=== PATIENT | male | born 1955 | race Caucasian/White ===

== ENCOUNTER 2016-11-28 15:13 | Inpatient (IN) | payer MEDICAID ==
[~2016-11-28] VITALS: Ht 177.8 cm; Wt 79.3 kg
[~2016-11-28 15:13] MED LIST: ACET-915 PO; ASC500 PO; CRAN300T PO; DORZ10DR22 BOTH EYES; DULR PR; ESOM40CA PO; GLIM2TAB PO; INSU100C SC; LANT3I SC; LISI10TA2 PO; MAGN400O4 PO; MTF1000T PO; MULT-552 PO; SERT25TA PO; ZINC220T PO; [UNRECOGNIZED DRUG - CODE] IM
--- NOTE | 2016-11-28 15:27 | ERA ---
ER Documentation Chief Complaint Date/Time DATE: 11/28/16 TIME: 15:26 Chief Complaint BROUGHT IN VIA PRIVATE AMBULANCE DUE TO SUPRAPUBIC CATHETER HPI The patient is a 61-year-old male, presenting to the ER because of suprapubic Acosta catheter insertion site leakage and painful urination intermittently for the last 2 weeks. He is thick antibiotic for acute cystitis but no response. The Acosta catheter was inserted September. He denies fever, chills, neck pain, chest pain, dyspnea, abdominal pain, vomiting, diarrhea, constipation. He does not smoke does not drink Past medical history: Paraplegic, diabetes mellitus, GERD, depression, chronic kidney disease Past surgical history: Chronic suprapubic Acosta ROS All systems reviewed and are negative except as per history of present illness. Medications Home Meds Reported Medications Cranberry Extract (Cranberry Concentrate) Unknown Strength Capsule, 1680 MG PO DAILY, CAP 11/28/16 Magnesium Hydroxide* (Milk Of Magnesia*) 400 Mg/5 Ml Oral.susp, 30 ML PO QHS Y for CONSTIPATION, ML 11/28/16 Acetaminophen* (Tylenol*) 325 Mg Tablet, 650 MG PO Q4H Y for MILD PAIN LEVEL 1-4 /10, TAB 11/28/16 Hydrocodone/Acetaminophen ([place] 5-325 Tablet) 1 Each Tablet, 1 EACH PO Q4H WHILE AWAKE, TAB PAIN SCALE 5-7/10 AND QD PRIOR TO WOUND TX 11/28/16 Sod Phosphate/Sod Biphosphate* (Fleet* Enema Pediatric) 66.6 Ml Soln, 66.6 ML ID Q2DAYS Y for CONSTIPATION, ENEMA 11/28/16 Bisacodyl* (Bisacodyl*) 10 Mg Supp, 10 MG ID DAILY, SUPP 11/28/16 Baclofen* (Baclofen*) 20 Mg Tablet, 20 MG PO TID, TAB 11/28/16 Amlodipine Besylate* (Amlodipine Besylate*) 10 Mg Tablet, 10 MG PO DAILY, #30 TAB HOLD IF SBP<110 OR<60 11/28/16 Multivitamin with Minerals (Multivitamins with Minerals) 1 Each Tablet, 1 EACH PO DAILY, TAB 11/28/16 Metformin Hcl* (Metformin Hcl*) 1,000 Mg Tablet, 1000 MG PO WITH BREAKFAST DINNE , #60 TAB 11/28/16 Glimepiride* (Glimepiride*) 2 Mg Tablet, 2 MG PO WITH BREAKFAST DINNE, TAB 11/28/16 Insulin Lispro (Humalog) 100 Unit/1 Ml Cartridge, 0 SQ SLIDING SCALE 60-110=0 UNITS, 111-150=4 UNITS, 151-200=8 UNITS, 201-250=10 UNITS, 251-300=12 UNITS,301-350=14 UNITS,>350=16 UNITS IF BS<60 OR >350 CALL MD 11/28/16 Ferrous Sulfate* (Ferrous Sulfate*) 325 Mg Tabec, 325 MG PO DAILY, TAB 11/28/16 Zinc Sulfate* (Zinc Sulfate*) 220 Mg Tablet, 220 MG PO DAILY, TAB 11/28/16 Ascorbic Acid* (Vitamin C*) 500 Mg Capsule.sa, 500 MG PO DAILY, CAP 11/28/16 Amorita-3 Fatty Acids (Fish Oil) 500 Mg Capsule, 500 MG PO DAILY, CAP 11/28/16 Discontinued Reported Medications Cranberry Conc/Ascorbic Acid (CRANBERRY CONCENTRATE SOFTGEL) 1 Each Capsule, 1 EACH PO DAILY, CAP 11/28/16 Lisinopril* (Lisinopril*) 10 Mg Tablet, 10 MG PO DAILY, TAB 03/04/15 Bisacodyl* (Bisacodyl*) 10 Mg Supp, 10 MG ID DAILY Y for CONSTIPATION, SUPP 03/04/15 Cranberry Extract (Cranberry) 300 Mg Tablet, 1680 MG PO 03/04/15 Esomeprazole Mag Trihydrate (Nexium) 40 Mg Capsule.dr, 40 MG PO AC BREAKFAST, CAP 03/04/15 Insulin Lispro (Humalog) 100 U/Ml Cartridge, 0 SC SLIDING SCALE ACHS, EA 03/04/15 Multivitamins* (Once Daily*) 1 Tab Tablet, 1 TAB PO DAILY, TAB 03/04/15 Insulin Glargine* (Lantus*) 100 Unit/Ml Soln, 30 UNIT SC HS, EA 03/04/15 Magnesium Hydroxide* (Milk Of Magnesia*) 400 Mg/5 Ml Oral.susp, 30 ML PO HS Y for CONSTIPATION, ML 08/23/14 Cefazolin Sod* (Ancef*) 500 Mg Soln, 1000 MG IM 1ST OF THE MONTH, VIAL 08/23/14 Dorzolamide-Timolol* (Cosopt*) 2%-0.5% - 10 Ml Soln, 1 DROP BOTH EYES HS, BOTTLE 08/23/14 Zinc Sulfate* (Zinc Sulfate*) 220 Mg Tablet, 220 MG PO DAILY, TAB 08/23/14 Ascorbic Acid (Vitamin C) 500 Mg Tab, 500 MG PO DAILY, TAB 08/23/14 Glimepiride* (Glimepiride*) 2 Mg Tablet, 2 MG PO BID, TAB 08/23/14 Acetaminophen* (Tylenol*) 325 Mg Tab, 650 MG PO Q4 PRN 10/19/11 Sertraline Hcl* (Zoloft*) 25 Mg Tablet, 12.5 MG PO DAILY 10/19/11 Discontinued Scripts Metformin* (Glucophage*) 1,000 Mg Tablet, 1000 MG PO BID, #60 TAB Prov:ANN MARKS MD 08/24/14 Allergies Allergies: Coded Allergies: Penicillins (Verified Allergy, Severe, RASH, 11/28/16) sulfamethoxazole (Verified Allergy, Mild, 11/28/16) trimethoprim (Verified Allergy, Mild, 11/28/16) cephalexin (Verified Allergy, Unknown, 11/28/16) PMhx/Soc History of Surgery: Yes Anesthesia Reaction: No Hx Neurological Disorder: Yes (Quadraplegic) Hx Respiratory Disorders: No Hx Cardiac Disorders: No Hx Psychiatric Problems: No Hx Miscellaneous Medical Probl: Yes (ACOSTA CATHETER) Hx Alcohol Use: No Hx Substance Use: No Hx Tobacco Use: No Physical Exam Vitals Vital Signs Date Time Temp Pulse Resp B/P Pulse Ox O2 Delivery O2 Flow Rate FiO2 11/28/16 17:15 96.6 95 18 112/69 100 Room Air 11/28/16 15:23 98.5 100 18 90/60 97 Physical Exam Const: No acute distress. Head: Atraumatic. Eyes: Normal Conjunctiva. ENT: Normal External Ears, Nose and Mouth. Neck: Full range of motion. No meningismus. Resp: Clear to auscultation bilaterally. Cardio: Regular rate and rhythm, no murmurs. Abd: Soft, non distended, normal bowel sounds, non tender. Positive for suprapubic Acosta catheter Skin: No petechiae or rashes. Back: No midline or flank tenderness. Ext: No cyanosis, or edema. Neur: Awake and alert. Some movement of extremities Psych: Normal Mood and Affect. Result Diagram: 11/28/16 1615 11/28/16 1615 Results 24 hrs Laboratory Tests Test 11/28/16 15:59 11/28/16 16:15 Iron Level 34ug/dl Percent Iron Saturation 11% SAT Total Iron Binding Capacity 297ug/dl Alanine Aminotransferase (ALT/SGPT) 9IU/L Albumin 4.0g/dl Albumin/Globulin Ratio 0.86 Alkaline Phosphatase 132IU/L Anion Gap 22 Aspartate Amino Transf (AST/SGOT) 21IU/L Basophils # 0.110^3/ul Basophils % 1.0% Blood Morphology Comment Blood Urea Nitrogen 24mg/dl Calcium Level 9.5mg/dl Carbon Dioxide Level 26mmol/L Chloride Level 99mmol/L Creatinine 0.85mg/dl Direct Bilirubin 0.00mg/dl Eosinophils # 0.710^3/ul Eosinophils % 4.9% Globulin 4.60g/dl Glucose Level 100mg/dl Hematocrit 39.1% Hemoglobin 12.9g/dl Indirect Bilirubin 0.1mg/dl Lipase 95U/L Lymphocytes # 3.910^3/ul Lymphocytes % 28.8% Mean Corpuscular Hemoglobin 25.1pg Mean Corpuscular Hemoglobin Concent 33.1g/dl Mean Corpuscular Volume 76.0fl Mean Platelet Volume 6.6fl Monocytes # 1.110^3/ul Monocytes % 7.9% Neutrophils # 7.810^3/ul Neutrophils % 57.4% Nucleated Red Blood Cells # 0.010^3/ul Nucleated Red Blood Cells % 0.0/100WBC Platelet Count 64722^3/UL Potassium Level 4.3mmol/L Red Blood Count 5.1510^6/ul Red Cell Distribution Width 18.6% Sodium Level 143mmol/L Total Bilirubin 0.1mg/dl Total Protein 8.6g/dl Urine Bacteria MANY Urine Bilirubin NEGATIVE Urine Clarity SLIGHTLY CLOUDY Urine Color LT. YELLOW Urine Glucose 0.5%% Urine Hemoglobin 2+ Urine Ketones NEGATIVE Urine Leukocyte Esterase 2+ Urine Microscopic RBC 2-5/HPF Urine Microscopic WBC >50/HPF Urine Nitrite POSITIVE Urine Specific [place] 1.015 Urine Squamous Epithelial Cells FEW Urine Total Protein 1+ Urine Urobilinogen 0.2 E.U./dL Urine WBC Clumps FEW Urine pH 6.0 White Blood Count 13.610^3/ul Current Medications Medications (Trade) Dose Ordered Sig/Aric Route PRN Reason Start Time Stop Time Status Last Admin Dose Admin Sodium Chloride 250 ml @ 250 mls/hr Q1H ONCE IV 11/28/16 16:00 11/28/16 16:59 DC 11/28/16 16:23 Sodium Chloride 250 ml @ 250 mls/hr Q1H ONCE IV 11/28/16 17:00 11/28/16 17:59 DC 11/28/16 17:36 Ciprofloxacin/ Dextrose (Cipro Ivpb) 200 ml @ 200 mls/hr ONCE ONCE IVPB 11/28/16 17:00 11/28/16 17:59 DC 11/28/16 17:36 IV Flush (NS 3 ml) 3 ml PER PROTOCOL IV 11/28/16 18:30 Ondansetron HCl (Zofran Inj) 4 mg Q6H PRN IV NAUSEA AND/OR VOMITING 11/28/16 18:30 Acetaminophen (Tylenol Tab) 650 mg Q6H PRN PO PAIN LEVEL 1-3 OR FEVER 11/28/16 18:30 Acetaminophen/ Hydrocodone Bitart ([place] (5/325)) 1 tab Q6H PRN PO MODERATE PAIN LEVEL 4-6 11/28/16 18:30 Morphine Sulfate (morphine) 2 mg Q4H PRN IV SEVERE PAIN LEVEL 7-10 11/28/16 18:30 Docusate Sodium (Colace) 100 mg Q12H PRN PO CONSTIPATION 11/28/16 18:30 Famotidine (Pepcid Iv) 20 mg Q12 IV 11/28/16 21:00 Enoxaparin Sodium (Lovenox) 40 mg DAILY SC 11/29/16 09:00 Insulin Aspart (Novolog Insulin Pen) NOVOLOG *MILD* ALGORITHM WITH MEALS BEDTIME SC 11/28/16 21:00 Miscellaneous Information (* Miscellaneous Pharmacy Order) HYPOGLYCEMIA PROTOCOL w... ONCE ONCE XX 11/28/16 18:30 11/28/16 18:31 DC Miscellaneous Information (* Miscellaneous Pharmacy Order) Discontinue Glyburide, Glipizide,... ONCE ONCE XX 11/28/16 18:30 11/28/16 18:31 DC Miscellaneous Information (* Miscellaneous Pharmacy Order) Discontinue all previ... ONCE ONCE XX 11/28/16 18:30 11/28/16 18:31 DC Amlodipine Besylate (Norvasc) 10 mg DAILY PO 11/29/16 09:00 Ascorbic Acid (Vitamin C) 500 mg DAILY PO 11/29/16 09:00 Baclofen (Lioresal) 20 mg TID PO 11/28/16 21:00 Bisacodyl (Dulcolax Supp) 10 mg DAILY ID 11/29/16 09:00 Ferrous Sulfate (Ferrous Sulfate (Ec)) 325 mg DAILY PO 11/29/16 09:00 Magnesium Hydroxide (Milk Of Mag) 30 ml QHS PRN PO CONSTIPATION 11/28/16 18:30 Metformin HCl (Glucophage) 1,000 mg WITH BREAKFAST DINNE PO 11/29/16 08:00 Zinc Sulfate (Zinc Sulfate) 220 mg DAILY PO 11/29/16 09:00 Miscellaneous Information 1,680 mg DAILY PO 11/29/16 09:00 11/29/16 09:00 DC Multivitamins/ Minerals (Theragran-M) 1 tab DAILY PO 11/29/16 09:00 Fish Oil 1000 mg 1,000 mg DAILY PO 11/29/16 09:00 Levofloxacin/ Dextrose (Levaquin 500mg/ D5W 100 ml (Pmx)) 100 ml @ 100 mls/hr Q24H IVPB 11/28/16 18:30 Miscellaneous Information 1 ea NOTE XX 11/28/16 18:30 Glucose (Glutose) 15 gm Q15M PRN PO DECREASED GLUCOSE 11/28/16 18:30 Glucose (Glutose) 22.5 gm Q15M PRN PO DECREASED GLUCOSE 11/28/16 18:30 Dextrose (D50w Syringe) 25 ml Q15M PRN IV DECREASED GLUCOSE 11/28/16 18:30 Dextrose (D50w Syringe) 50 ml Q15M PRN IV DECREASED GLUCOSE 11/28/16 18:30 Glucagon (Glucagen) 1 mg Q15M PRN IM DECREASED GLUCOSE 11/28/16 18:30 Glucose (Glutose) 15 gm Q15M PRN BUCCAL DECREASED GLUCOSE 11/28/16 18:30 Nystatin (Nystatin Powder) 1 applic BID TOP 11/28/16 21:00 Procedures/MDM MEDICAL MAKING DECISION: The patient is a 61-year-old male, presenting with acute cystitis, leakage of suprapubic Acosta catheter. He was treated with normal saline 250 mL 2 and Cipro IV for acute cystitis. The differential diagnoses considered include but are not limited to cholelithiasis, cholecystitis, cystitis, pancreatitis, hepatitis, gastritis, peptic ulcer disease, gastric ulcer, appendicitis, diverticulitis, cholangitis, choledocholithiasis, partial small bowel obstruction. Departure Diagnosis: Primary Impression: UTI (urinary tract infection) Additional Impression: Encounter for urinary catheter Condition: Stable Comments I discussed the findings with the patient. I discussed the patient with the on- call hospitalist Dr. Rivero. who was made aware of the lab, the treatment, the patient condition. The patient is admitted to [facility] at 5:45 PM. He would consult urology himself JADE JOSE MD Nov 28, 2016 15:27
[2016-11-28] MEDS ORDERED: SOD CHLORIDE 0.9% 250 ML IV ONE ×2 (16:00→17:00)
[2016-11-28 16:21] LABS: BASOPHIL # 0.1 10^3/ul (0.0-0.1); EOSINOPHILS # 0.7 10^3/ul (0.0-0.5); EOSINOPHILS % 4.9 % (0.0-7.0); HEMATOCRIT 39.1 % (42.0-52.0); HEMOGLOBIN 12.9 g/dl (14.0-18.0); LYMPHOCYTES # 3.9 10^3/ul (0.8-2.9); LYMPHOCYTES % 28.8 % (15.0-51.0); MEAN CORPUSCULAR HEMOGLOBIN 25.1 pg (29.0-33.0); MEAN CORPUSCULAR HGB CONC 33.1 g/dl (32.0-37.0); MEAN PLATELET VOLUME 6.6 fl (7.4-10.4); MONOCYTE # 1.1 10^3/ul (0.3-0.9); MONOCYTES % 7.9 % (0.0-11.0); NEUTROPHIL # 7.8 10^3/ul (1.6-7.5); NEUTROPHILS % 57.4 % (39.0-77.0); PLATELET COUNT 515 10^3/UL (140-440); RED BLOOD COUNT 5.15 10^6/ul (4.70-6.10); RED CELL DISTRIBUTION WIDTH 18.6 % (11.5-14.5); UNCORRECTED WBC 13.6 10^3/ul (4.8-10.8); WHITE BLOOD COUNT 13.6 10^3/ul (4.8-10.8)
[2016-11-28] MEDS ORDERED: OMEG500C3 PO (16:24)
[2016-11-28] MEDS ORDERED: ASCO500C7 PO (16:24)
[2016-11-28] MEDS ORDERED: ZINC220T PO (16:25)
[2016-11-28] MEDS ORDERED: FER325 PO (16:30)
[2016-11-28 16:31] LABS: ADD UMIC YES; URINE BILIRUBIN (Dip) NEGATIVE (NEGATIVE); URINE BLOOD (Dip) 2+ (NEGATIVE); URINE COLOR LT. YELLOW (YELLOW); URINE KETONES (Dip) NEGATIVE (NEGATIVE); URINE LEUKOCYTE ESTERASE (Dip) 2+ (NEGATIVE); URINE NITRITE (Dip) POSITIVE (NEGATIVE); URINE TOTAL PROTEIN (Dip) 1+ (NEGATIVE); URINE UROBILINOGEN (Dip) 0.2 E.U./dL (0.1-1.0)
[2016-11-28 16:33] LABS: CONDITION 1; LH ANALYZER COMMENTS 1
[2016-11-28 16:34] LABS: POTASSIUM 4.3 mmol/L (3.5-5.1)
[2016-11-28 16:36] LABS: BILIRUBIN,INDIRECT 0.1 mg/dl (0-1.1); BILIRUBIN,TOTAL 0.1 mg/dl (0.2-1.3); CREATININE 0.85 mg/dl (0.61-1.24)
[2016-11-28 16:37] LABS: ALBUMIN/GLOBULIN RATIO 0.86; CALCIUM 9.5 mg/dl (8.4-10.2); TOTAL PROTEIN 8.6 g/dl (6.1-8.1)
[2016-11-28] MEDS ORDERED: INSU100C SQ (16:37)
[2016-11-28] MEDS ORDERED: GLIM2TAB PO (16:37)
[2016-11-28] MEDS ORDERED: METF1000 PO (16:38)
[2016-11-28] MEDS ORDERED: MULT-105 PO (16:38)
[2016-11-28] MEDS ORDERED: AMLO-147 PO (16:44)
[2016-11-28] MEDS ORDERED: BACL20TA PO (16:45)
[2016-11-28] MEDS ORDERED: DULR PR (16:46)
[2016-11-28] MEDS ORDERED: FLEETPED PR (16:47)
[2016-11-28] MEDS ORDERED: HYDR-906 PO (16:50)
[2016-11-28] MEDS ORDERED: ACET325T33 PO (16:51)
[2016-11-28 16:59] LABS: BACTERIA,URINE MANY; SQUAMOUS EPITHELIAL CELL,UR FEW
[2016-11-28] MEDS ORDERED: CIPROFLOXACIN 400MG/D5W 200 ML IVPB ONE (17:00)
[2016-11-28] MEDS ORDERED: MAGN400O4 PO (17:03)
[2016-11-28] MEDS ORDERED: CRAN1CAP9 PO (17:09)
[2016-11-28] MEDS ORDERED: CRAN500C7 PO (17:14)
--- NOTE | 2016-11-28 18:17 | HP ---
Date/Time of Note Date/Time of Note DATE: 11/28/16 TIME: 18:07 Assessment/Plan VTE Prophylaxis VTE Prophylaxis Intervention: LMWH Assessment/Plan Assessment/Plan 61 yo male with a past medical history of quadriplegia, type II DM, depression, CKD, who presents with suprapubic catheter leakage and foul smelling urine. 1. UTI - will admit the patient to med/surg for observation, continue with fluoroquinolones, check culture and sensitivity, consult urology for replacement of catheter 2. Leukocytosis 2/2 to #1 3. Type II DM - check hgba1c, ISS, c/w metformin 4. CKD - stage I/II - will continue with renally adjusting medications, avoid nephrotoxins 5. Anemia - microcytic - check iron panel, occult blood, transfuse if hgb < 7.5 g/dL 6. Quadriplegia - continue with pain meds, PT eval/tx 7. Depression - continue with SSRI 8. GI ppx - pepcid po 9. DVT ppx - lovenox answered all of his questions. as per clinical course. this history and physical took greater then 45 minutes to complete HPI/ROS Admit Date/Time Admit Date/Time 11/28/2016, 6:07 pm Hx of Present Illness 61 yo male with a past medical history of quadriplegia, type II DM, depression, CKD, who presents with suprapubic catheter leakage and foul smelling urine. As per the patient, he has noticed that the suprapubic catheter has been leaking for the last two weeks. Otherwise noticed the urine smelling bad, no hematuria or discharge noted. He states that the site around the suprapubic catheter has been getting red as well. Otherwise denies any fevers/chills, nausea/vomiting/ diarrhea/constipation, chest pain, shortness of breath, dizziness, headaches, or other constitutional symptoms. ED course: ciprofloxacin and IVF ROS 14 point review of systems completed, please refer to HPI for any positive findings PMH/Family/Social Past Medical History quadriplegia, depression Medical History: diabetes, renal disease Past Surgical History suprapubic catheter placement Family History Significant Family History: no pertinent family hx, heart disease (none), cancer (none), COPD (none) Social History Alcohol Use: none Smoking Status: Never smoker Drug Use: none Exam/Review of Systems Vital Signs Vitals Vital Signs Date Time Temp Pulse Resp B/P Pulse Ox O2 Delivery O2 Flow Rate FiO2 11/28/16 17:15 96.6 95 18 112/69 100 Room Air Exam Exam Gen Abel: mild distress 2/2 to suprapubic pain, AAOx4 HEENT: NC/AT, PERRLA, EOMI, no pharyngeal erythema, no tonsillar exudates, no lymphadenopathy, no JVD, no carotid bruits NECK: supple, no thyromegaly THORAX: symmetrical, no obvious deformities CV: S1S2, RRR, no M/G/R Lungs: CTAB no W/C/R/R Abd: soft, NT/ND, +BS, no rebound, no guarding, neg HSM, suprapubic catheter site with surrounding erythema, foul smell EXT: contractures, quadriplegic Neuro: quadriplegia Psych: fair mood and affect Skin: C/D/I Labs Result Diagram: 11/28/16 1615 11/28/16 1615 UCHE GLASS MD Nov 28, 2016 18:17
[2016-11-28] MEDS ORDERED: HYDROCODONE/APAP (5/325) TAB PO PRN (18:30)
[2016-11-28] MEDS ORDERED: ONDANSETRON 4 MG INJ IV PRN (18:30)
[2016-11-28] MEDS ORDERED: GLUCOSE GEL 15 GRAM TUBE BUCCAL PRN (18:30)
[2016-11-28] MEDS ORDERED: MAGNESIUM HYDROXIDE 30ML CUP PO PRN (18:30)
[2016-11-28] MEDS ORDERED: morphine 2 MG INJ IV PRN (18:30)
[2016-11-28] MEDS ORDERED: NACL 0.9% 3 ML SYG IV SCH (18:30)
[2016-11-28] MEDS ORDERED: ACETAMINOPHEN 325 MG TAB PO PRN (18:30)
[2016-11-28] MEDS ORDERED: GLUCOSE GEL 15 GRAM TUBE PO PRN ×2 (18:30)
[2016-11-28] MEDS ORDERED: DEXTROSE 50% 50 ML SYRINGE IV PRN ×2 (18:30)
[2016-11-28] MEDS ORDERED: GLUCAGON 1 MG INJ IM PRN (18:30)
[2016-11-28] MEDS ORDERED: DOCUSATE SODIUM 100 MG CAP PO PRN (18:30)
[2016-11-28 19:35] LABS: IRON 34 ug/dl (35-150)
[2016-11-28 19:44] LABS: TOTAL IRON BINDING CAPACITY 297 ug/dl (241-421)
[2016-11-28 22:11] VITALS: TEMP 97.2
[2016-11-28 22:55] VITALS: BP 134/73; PULSE 125; RESP 18
[2016-11-28 23:01] VITALS: Ht 177.8 cm; Wt 79.3 kg
[2016-11-28] MEDS: LEVOFLOXACIN 500MG/D5W (PMX) 100 ML IVPB SCH (23:18)
[2016-11-28] MEDS: BACLOFEN 10 MG TAB PO SCH (23:19)
[2016-11-28] MEDS: FAMOTIDINE 20 MG INJ IV SCH (23:19)
[2016-11-28] MEDS: NYSTATIN 30 GM POWDER BTL TOP SCH (23:28)
[2016-11-28] MEDS: INSULIN ASPART [NOVOLOG] 3 ML PEN SC SCH (23:29)
[2016-11-29] MEDS ORDERED: SOD CHLORIDE 0.9% 1,000 ML IV ONE
[2016-11-29 00:30] VITALS: BP 116/81; PULSE 113
[2016-11-29] MEDS ORDERED: CRANBERRY EXTRACT PO SCH (09:00)
[2016-11-29] MEDS: BISACODYL 10 MG SUPP PR SCH (09:00)
[2016-11-29 09:08] VITALS: BP 90/52; RESP 22
[2016-11-29 09:53] LABS: BASOPHIL # 0.1 10^3/ul (0.0-0.1); BASOPHILS % 0.6 % (0.0-2.0); EOSINOPHILS # 0.1 10^3/ul (0.0-0.5); EOSINOPHILS % 0.7 % (0.0-7.0); HEMATOCRIT 40.3 % (42.0-52.0); HEMOGLOBIN 13.2 g/dl (14.0-18.0); LYMPHOCYTES # 2.4 10^3/ul (0.8-2.9); LYMPHOCYTES % 13.5 % (15.0-51.0); MEAN CORPUSCULAR HEMOGLOBIN 25.2 pg (29.0-33.0); MEAN CORPUSCULAR HGB CONC 32.8 g/dl (32.0-37.0); MEAN CORPUSCULAR VOLUME 76.9 fl (82.0-101.0); MEAN PLATELET VOLUME 6.9 fl (7.4-10.4); MONOCYTE # 1.1 10^3/ul (0.3-0.9); MONOCYTES % 6.1 % (0.0-11.0); NEUTROPHIL # 14.3 10^3/ul (1.6-7.5); NEUTROPHILS % 79.1 % (39.0-77.0); PLATELET COUNT 502 10^3/UL (140-440); RED BLOOD COUNT 5.24 10^6/ul (4.70-6.10); RED CELL DISTRIBUTION WIDTH 18.7 % (11.5-14.5); UNCORRECTED WBC 18.1 10^3/ul (4.8-10.8); WHITE BLOOD COUNT 18.1 10^3/ul (4.8-10.8)
[2016-11-29 09:54] LABS: POTASSIUM 4.6 mmol/L (3.5-5.1)
[2016-11-29 09:57] LABS: CREATININE 0.98 mg/dl (0.61-1.24)
[2016-11-29 09:58] LABS: CALCIUM 8.9 mg/dl (8.4-10.2)
[2016-11-29 10:04] LABS: CONDITION 1; LH ANALYZER COMMENTS 1
[2016-11-29] MEDS: BACLOFEN 10 MG TAB PO SCH ×3 (11:04→20:34)
[2016-11-29] MEDS: metFORMIN 500 MG TAB PO SCH ×2 (11:04→17:57)
[2016-11-29] MEDS: FERROUS SULFATE (EC) 325 MG TAB PO SCH (11:04)
[2016-11-29] MEDS: ZINC SULFATE 220 MG CAP PO SCH (11:04)
[2016-11-29] MEDS: FISH OIL 1,000 MG CAP PO SCH (11:05)
[2016-11-29] MEDS: AMLODIPINE 10 MG TAB PO SCH (11:05)
[2016-11-29] MEDS: MULTIVITAMINS/MINERALS TAB PO SCH (11:05)
[2016-11-29] MEDS: FAMOTIDINE 20 MG INJ IV SCH ×2 (11:05→20:34)
[2016-11-29] MEDS: INSULIN ASPART [NOVOLOG] 3 ML PEN SC SCH ×6 (11:07→20:34)
[2016-11-29] MEDS: ASCORBIC ACID 500 MG TAB PO SCH (11:09)
[2016-11-29] MEDS: ENOXAPARIN 40 MG/0.4 ML SYG SC SCH (11:11)
[2016-11-29] MEDS: NYSTATIN 30 GM POWDER BTL TOP SCH ×2 (11:16→20:35)
--- NOTE | 2016-11-29 14:20 | PN ---
Date/Time of Note Date/Time of Note DATE: 11/29/16 TIME: 14:13 Assessment/Plan VTE Prophylaxis VTE Prophylaxis Intervention: LMWH Lines/Catheters IV Catheter Type (from Nrsg): Saline Lock Urinary Cath still in place: Yes Reason Cath still needed: skin wounds contaminated by urine Assessment/Plan Assessment/Plan 61 yo male with a past medical history of quadriplegia, type II DM, depression, CKD, who presents with suprapubic catheter leakage and foul smelling urine. 1. UTI - culture shows gram negative rods - will continue with rocephin until spp and sensitivities are retrieved 2. Leukocytosis 2/2 to #1 - worsening - there is a sacral ulcer noted - appreciate wound care 3. Type II DM - hgba1c 8.4 - diabetic consult, ISS, c/w metformin - added lantus and novolog 4. CKD - stage I/II - will continue with renally adjusting medications, avoid nephrotoxins 5. Anemia - microcytic - occult blood, transfuse if hgb < 7.5 g/dL - iron deficient supplementation started 6. Quadriplegia - continue with pain meds, PT eval/tx 7. Depression - continue with SSRI 8. Hypomagnesemia - replete 9. GI ppx - pepcid po 10. DVT ppx - lovenox dispo - f/u urology, as per clinical course, f/u labs this progress note took greater than 40 minutes to complete Subjective 24 Hr Interval Summary Free Text/Dictation Patient was admitted yesterday for UTI and malfunctioning suprapubic catheter. Patient was agitated and screaming. i spoke to the patient about the care plan. 20 minutes spent. Exam/Review of Systems Vital Signs Vitals Vital Signs Date Time Temp Pulse Resp B/P Pulse Ox O2 Delivery O2 Flow Rate FiO2 11/29/16 09:08 97.9 110 22 90/52 94 11/28/16 22:55 Room Air Intake and Output 11/28/16 11/28/16 11/29/16 15:00 23:00 07:00 Intake Total 1650 ml Balance 1650 ml Exam Gen Abel: mild distress 2/2 to suprapubic pain, AAOx4 HEENT: NC/AT, PERRLA, EOMI, no pharyngeal erythema, no tonsillar exudates, no lymphadenopathy, no JVD, no carotid bruits NECK: supple, no thyromegaly THORAX: symmetrical, no obvious deformities CV: S1S2, RRR, no M/G/R Lungs: CTAB no W/C/R/R Abd: soft, NT/ND, +BS, no rebound, no guarding, neg HSM, suprapubic catheter site with surrounding erythema, foul smell EXT: contractures, quadriplegic Neuro: quadriplegia Psych: fair mood and affect Skin: C/D/I Results Result Diagram: 11/29/16 0935 11/29/16 0935 Results 24 hrs Laboratory Tests Test 11/28/16 15:59 11/28/16 16:15 11/28/16 21:53 11/28/16 22:34 Ferritin 57.3 Hemoglobin A1c 8.4 H Iron Level 34 L Magnesium Level 1.4 L Percent Iron Saturation 11 L Total Iron Binding Capacity 297 Alanine Aminotransferase (ALT/SGPT) 9 L Albumin 4.0 Albumin/Globulin Ratio 0.86 Alkaline Phosphatase 132 H Anion Gap 22 H Aspartate Amino Transf (AST/SGOT) 21 Basophils # 0.1 Basophils % 1.0 Blood Morphology Comment Blood Urea Nitrogen 24 H Calcium Level 9.5 Carbon Dioxide Level 26 Chloride Level 99 Creatinine 0.85 Direct Bilirubin 0.00 Eosinophils # 0.7 H Eosinophils % 4.9 Globulin 4.60 H Glucose Level 100 Hematocrit 39.1 L Hemoglobin 12.9 L Indirect Bilirubin 0.1 Lipase 95 Lymphocytes # 3.9 H Lymphocytes % 28.8 Mean Corpuscular Hemoglobin 25.1 L Mean Corpuscular Hemoglobin Concent 33.1 Mean Corpuscular Volume 76.0 L Mean Platelet Volume 6.6 #L Monocytes # 1.1 H Monocytes % 7.9 Neutrophils # 7.8 H Neutrophils % 57.4 Nucleated Red Blood Cells # 0.0 Nucleated Red Blood Cells % 0.0 Platelet Count 515 #H Potassium Level 4.3 Red Blood Count 5.15 Red Cell Distribution Width 18.6 #H Sodium Level 143 Total Bilirubin 0.1 L Total Protein 8.6 H Urine Bacteria MANY Urine Bilirubin NEGATIVE Urine Clarity SLIGHTLY CLOUDY Urine Color LT. YELLOW Urine Glucose 0.5% H Urine Hemoglobin 2+ H Urine Ketones NEGATIVE Urine Leukocyte Esterase 2+ H Urine Microscopic RBC 2-5 Urine Microscopic WBC >50 Urine Nitrite POSITIVE H Urine Specific [place] 1.015 Urine Squamous Epithelial Cells FEW Urine Total Protein 1+ H Urine Urobilinogen 0.2 E.U./dL Urine WBC Clumps FEW Urine pH 6.0 White Blood Count 13.6 #H Bedside Glucose 180 214 Test 11/29/16 08:06 11/29/16 09:35 11/29/16 12:47 Bedside Glucose 265 H 189 Anion Gap 22 H Basophils # 0.1 Basophils % 0.6 Blood Morphology Comment Blood Urea Nitrogen 28 H Calcium Level 8.9 Carbon Dioxide Level 23 Chloride Level 100 Creatinine 0.98 Eosinophils # 0.1 Eosinophils % 0.7 Glucose Level 308 #H Hematocrit 40.3 L Hemoglobin 13.2 L Lymphocytes # 2.4 Lymphocytes % 13.5 L Mean Corpuscular Hemoglobin 25.2 L Mean Corpuscular Hemoglobin Concent 32.8 Mean Corpuscular Volume 76.9 L Mean Platelet Volume 6.9 L Monocytes # 1.1 H Monocytes % 6.1 Neutrophils # 14.3 H Neutrophils % 79.1 H Nucleated Red Blood Cells # 0.0 Nucleated Red Blood Cells % 0.0 Platelet Count 502 H Potassium Level 4.6 Red Blood Count 5.24 Red Cell Distribution Width 18.7 H Sodium Level 140 White Blood Count 18.1 #H Medications Medications Current Medications Ondansetron HCl (Zofran Inj) 4 mg Q6H PRN IV NAUSEA AND/OR VOMITING; Start 11/28 at 18:30 Acetaminophen (Tylenol Tab) 650 mg Q6H PRN PO PAIN LEVEL 1-3 OR FEVER; Start at 18:30 Acetaminophen/ Hydrocodone Bitart ([place] (5/325)) 1 tab Q6H PRN PO MODERATE PAIN LEVEL 4-6; Start 11/28/16 at 18:30 Morphine Sulfate (morphine) 2 mg Q4H PRN IV SEVERE PAIN LEVEL 7-10; Start at 18:30 Docusate Sodium (Colace) 100 mg Q12H PRN PO CONSTIPATION; Start 11/28/16 at 18: 30 Famotidine (Pepcid Iv) 20 mg Q12 IV Last administered on 11/29/16 11:05; Admin Dose 20 MG; Start 11/28/16 at 21:00 Enoxaparin Sodium (Lovenox) 40 mg DAILY SC Last administered on 11/29/16 11:11 ; Admin Dose 40 MG; Start 11/29/16 at 09:00 Amlodipine Besylate (Norvasc) 10 mg DAILY PO Last administered on 11/29/16 11: 05; Admin Dose 10 MG; Start 11/29/16 at 09:00 Ascorbic Acid (Vitamin C) 500 mg DAILY PO Last administered on 11/29/16 11:09; Admin Dose 500 MG; Start 11/29/16 at 09:00 Baclofen (Lioresal) 20 mg TID PO Last administered on 11/29/16 12:52; Admin Dose 20 MG; Start 11/28/16 at 21:00 Bisacodyl (Dulcolax Supp) 10 mg DAILY [place] ; Start 11/29/16 at 09:00 Ferrous Sulfate (Ferrous Sulfate (Ec)) 325 mg DAILY PO Last administered on 11/29 11:04; Admin Dose 325 MG; Start 11/29/16 at 09:00 Magnesium Hydroxide (Milk Of Mag) 30 ml QHS PRN PO CONSTIPATION; Start 11/28/16 at 18:30 Zinc Sulfate (Zinc Sulfate) 220 mg DAILY PO Last administered on 11/29/16 11:04 ; Admin Dose 220 MG; Start 11/29/16 at 09:00 Multivitamins/ Minerals (Theragran-M) 1 tab DAILY PO Last administered on 11:05; Admin Dose 1 TAB; Start 11/29/16 at 09:00 Fish Oil 1000 mg 1,000 mg DAILY PO Last administered on 11/29/16 11:05; Admin Dose 1,000 MG; Start 11/29/16 at 09:00 Levofloxacin/ Dextrose (Levaquin 500mg/ D5W 100 ml (Pmx)) 100 ml @ 100 mls/hr Q24H IVPB Last administered on 11/28/16 23:18; Admin Dose 100 MLS/HR; Start 11/28/16 at 18:30 Miscellaneous Information 1 ea NOTE XX ; Start 11/28/16 at 18:30 Glucose (Glutose) 15 gm Q15M PRN PO DECREASED GLUCOSE; Start 11/28/16 at 18:30 Glucose (Glutose) 22.5 gm Q15M PRN PO DECREASED GLUCOSE; Start 11/28/16 at 18:30 Dextrose (D50w Syringe) 25 ml Q15M PRN IV DECREASED GLUCOSE; Start 11/28/16 at 18:30 Dextrose (D50w Syringe) 50 ml Q15M PRN IV DECREASED GLUCOSE; Start 11/28/16 at 18:30 Glucagon (Glucagen) 1 mg Q15M PRN IM DECREASED GLUCOSE; Start 11/28/16 at 18:30 Glucose (Glutose) 15 gm Q15M PRN BUCCAL DECREASED GLUCOSE; Start 11/28/16 at 18: 30 Nystatin (Nystatin Powder) 1 applic BID TOP Last administered on 11/29/16t 11:16 ; Admin Dose 1 APPLIC; Start 11/28/16 at 21:00 Insulin Glargine (Lantus) 15 unit DAILY@20 SC ; Start 11/29/16 at 20:00 Diagnostic Test (Pha) (Accucheck) 1 ea 02 XX ; Start 11/30/16 at 02:00 Collagenase (Santyl) 1 applic DAILY TOP ; Start 11/29/16 at 14:30 UCHE GLASS MD Nov 29, 2016 14:20
[2016-11-29] MEDS ORDERED: MAGNESIUM SULFATE 3 GM in SOD CHLORIDE 0.9% 100 ML IVPB ONE (14:30)
[2016-11-29] MEDS: COLLAGENASE 30 GM TUBE TOP SCH (17:56)
[2016-11-29] MEDS: LEVOFLOXACIN 500MG/D5W (PMX) 100 ML IVPB SCH (17:58)
[2016-11-29 19:46] VITALS: BP 125/81; RESP 16
[2016-11-29] MEDS: INSULIN GLARGINE [LANtus] 3 ML PEN SC SCH (20:34)
--- NOTE | 2016-11-29 20:54 | CONS ---
DATE OF ADMISSION: 11/28/2016 DATE OF CONSULTATION: 11/29/2016 REQUESTING PHYSICIAN: Jayy Rivero MD Dear Dr. Rivero: Thank you for asking me to see this patient in urological consultation. HISTORY OF PRESENT ILLNESS: This is an unfortunate 61-year-old male with history of quadriplegia, t ype 2 diabetes mellitus and depression, chronic kidney disease, and neurogenic bladder. The patient used to have a regular Potter catheter before, but it appears that that was changed to a suprapubic tube and the patient has his nephew at his bedside. The patient was not talking. The nephew tells me that he has had the suprapubic tube for a while; however, it looks like the suprapubic tube has a suture on it, so it may be recent. The patient came into the hospital because he noticed urine to be smelling bad and there was a drainage around the suprapubic tube. The patient was therefore admi tted and a urological consultation was requested. PAST MEDICAL HISTORY: Patient does have a history of depression, quadriplegia, anemia, chronic kidn ey disease, type 2 diabetes, leukocytosis. SOCIAL HISTORY: He lives in a custodial and the patient does not smoke, does not drink any alcoh ol. MEDICATIONS: He is on presently include: 1. Insulin. 2. Lovenox. 3. Amlodipine. 4. Ascorbic acid. 5. Dulcolax suppository. 6. Ferrous sulfate. 7. Zinc sulfate. 8. Fish oil. 9. Metformin. 10. Multivitamin. 11. Pepcid. 12. Baclofen. 13. Nystatin. 14. Zofran p.r.n. 15. Tylenol p.r.n. 16. [place] p.r.n. 17. Morphine p.r.n. 18. Colace p.r.n. 19. Levaquin. He did have one dose already. ALLERGIES: THE PATIENT, ACCORDING TO HIS RECORDS HERE, STATED THAT HE IS ALLERGIC TO PENICILLIN, CE PHALEXIN, MEROPENEM, SULFAMETHOXAZOLE AND TRIMETHOPRIM. PHYSICAL EXAMINATION: GENERAL: Reveals a 61-year-old male quadriplegic. He weighs about 79.3 kilograms. He is 70 inches tall. VITAL SIGNS: Show temperature of 97.9, pulse is 110, respirations 22, blood pressure 90/52. ABDOMEN: Obese. He does have a suprapubic tube that appears to be recent. LABORATORY DATA: Shows a CBC with a white count of 18,100, hemoglobin 13.2, hematocrit 40.3, BUN is 28, creatinine 0.98. Sodium 140, potassium 4.6, chloride 100, CO2 23. Urine culture growing gram- negative rods, sensitivity is pending. From a prior CT scan that the patient had in 2013, he did nicholson ve bilateral kidney stones. IMPRESSION: Neurogenic bladder and urinary tract infection and leaking suprapubic tube and kidney s tones. The patient needs to have the suprapubic tube changed. I will change it in the morning. I will have the nurses get me the urology cart so I can do it tomorrow and also we will get a KUB to s ee if the kidney stones are big and also if there are any bladder stones as well. I will follow his urological problem with you. I do thank you for allowing me to help in his care. Dictated By: NAJMA SR/KOREY Conf#: [id number] DID#: [id number]
[2016-11-29] MEDS: ACCUCHECK XX SCH (21:52)
--- NOTE | 2016-11-30 08:00 | RADRPT ---
PROCEDURE: XR Abdomen. CLINICAL INDICATION: Kidney stones. Abdominal pain. TECHNIQUE: 3 views of the abdomen are available for review. COMPARISON: None. FINDINGS: The bowel gas pattern is normal. There is no evidence of obstruction. There are no abnormal calcific ations overlying the urinary tracts. The osseous structures are remarkable for diffuse ankylosing sp ondylitis of the spine. Advanced severe chronic degenerative changes of the hip joints is seen bila terally. IMPRESSION: 1. No urolithiasis is visible on this study. 2. Diffuse ankylosing spondylitis of the lumbar spine. 3. Severe chronic degenerative changes of the hip joints bilaterally. RPTAT: PP .Galen Page MD, MD Date Time Electronically viewed and signed by .Galen Page MD, on 11/30/2016 07:59 .B/
[2016-11-30 08:17] VITALS: BP 93/60; RESP 20
[2016-11-30] MEDS: COLLAGENASE 30 GM TUBE TOP SCH (09:00)
[2016-11-30] MEDS: AMLODIPINE 10 MG TAB PO SCH (09:00)
[2016-11-30] MEDS: BACLOFEN 10 MG TAB PO SCH ×3 (09:07→21:02)
[2016-11-30] MEDS: FAMOTIDINE 20 MG INJ IV SCH (09:07)
[2016-11-30] MEDS: FERROUS SULFATE (EC) 325 MG TAB PO SCH (09:07)
[2016-11-30] MEDS: MULTIVITAMINS/MINERALS TAB PO SCH (09:07)
[2016-11-30] MEDS: ASCORBIC ACID 500 MG TAB PO SCH (09:07)
[2016-11-30] MEDS: FISH OIL 1,000 MG CAP PO SCH (09:07)
[2016-11-30] MEDS: ZINC SULFATE 220 MG CAP PO SCH (09:07)
[2016-11-30] MEDS: BISACODYL 10 MG SUPP PR SCH (09:07)
[2016-11-30] MEDS: INSULIN ASPART [NOVOLOG] 3 ML PEN SC SCH ×7 (09:09→21:00)
--- NOTE | 2016-11-30 09:10 | PN ---
DATE: 11/30/2016 PROBLEM: Suprapubic tube that has been draining purulent urine and also leakage around it. The patient himself is not able to answer any questions. Any time we ask him questions, even with evi nurse speaking to him in Lebanese, he does not know and does not remember who put in the suprapubic tube for him, when and where. His nephew, who was at his bedside, also does not remember who the dell muñoz is who did it, but he may remember and will try to find out what the hospital it was done at, and they may get the records from that hospital. I tried to see if I could change the suprapubic tub e. It appears that he has a suprapubic tube that is not a catheter, it has a pigtail probably and i t is not well seen on the KUB. The patient did have a KUB last night and I cannot see the pigtail o n the x-ray. If one wants to try to pull it, it may start bleeding and therefore I decided not to c hange it and leave it alone and if we can get the records from the place where he had it, then we ma y try to change it. If not, then the patient will have to go back to the same place where they can change it for him. Dictated By: NAJMA SR/KOREY Conf#: [id number] DID#: [id number]
[2016-11-30] MEDS: metFORMIN 500 MG TAB PO SCH ×2 (09:14→17:36)
[2016-11-30] MEDS: ENOXAPARIN 40 MG/0.4 ML SYG SC SCH (09:15)
[2016-11-30] MEDS: NYSTATIN 30 GM POWDER BTL TOP SCH ×2 (09:16→21:06)
[2016-11-30 09:22] LABS: BASOPHIL # 0.2 10^3/ul (0.0-0.1); BASOPHILS % 1.6 % (0.0-2.0); EOSINOPHILS # 0.4 10^3/ul (0.0-0.5); EOSINOPHILS % 4.8 % (0.0-7.0); HEMATOCRIT 37.2 % (42.0-52.0); HEMOGLOBIN 11.5 g/dl (14.0-18.0); LYMPHOCYTES # 3.1 10^3/ul (0.8-2.9); LYMPHOCYTES % 33.9 % (15.0-51.0); MEAN CORPUSCULAR HEMOGLOBIN 24.3 pg (29.0-33.0); MEAN CORPUSCULAR HGB CONC 30.9 g/dl (32.0-37.0); MEAN CORPUSCULAR VOLUME 78.5 fl (82.0-101.0); MEAN PLATELET VOLUME 8.8 fl (7.4-10.4); MONOCYTE # 0.7 10^3/ul (0.3-0.9); MONOCYTES % 7.5 % (0.0-11.0); NEUTROPHIL # 4.7 10^3/ul (1.6-7.5); NEUTROPHILS % 51.7 % (39.0-77.0); PLATELET COUNT 378 10^3/UL (140-440); RED BLOOD COUNT 4.74 10^6/ul (4.70-6.10); RED CELL DISTRIBUTION WIDTH 18.1 % (11.5-14.5); WHITE BLOOD COUNT 9.2 10^3/ul (4.8-10.8)
[2016-11-30 09:29] LABS: CREATININE 0.76 mg/dl (0.61-1.24)
[2016-11-30 09:30] LABS: CALCIUM 8.9 mg/dl (8.4-10.2)
--- NOTE | 2016-11-30 11:27 | PN ---
Date/Time of Note Date/Time of Note DATE: 11/30/16 TIME: 11:24 Assessment/Plan VTE Prophylaxis VTE Prophylaxis Intervention: LMWH Lines/Catheters IV Catheter Type (from Nrsg): Saline Lock Assessment/Plan Assessment/Plan 61 yo male with a past medical history of quadriplegia, type II DM, depression, CKD, who presents with suprapubic catheter leakage and foul smelling urine. 1. UTI - culture shows gram negative rods/enterococcus spp - will continue with rocephin until spp and sensitivities are retrieved 2. Leukocytosis 2/2 to #1 - worsening - there is a sacral ulcer noted - appreciate wound care - resolved 3. Malfunctioning suprapubic catheter - appreciate urology recs - needs films from prior placement in order to determine how to remove and replace 4. Type II DM - hgba1c 8.4 - diabetic consult, ISS, c/w metformin - added lantus and novolog 5. CKD - stage I/II - will continue with renally adjusting medications, avoid nephrotoxins 6. Anemia - microcytic - occult blood, transfuse if hgb < 7.5 g/dL - iron deficient supplementation started 7. Quadriplegia - continue with pain meds, PT eval/tx 8. Depression - continue with SSRI 9. Hypomagnesemia - replete 10. GI ppx - pepcid po 11. DVT ppx - lovenox dispo - f/u urology, as per clinical course, f/u labs, retrieve the records this progress note took greater than 30 minutes to complete Subjective 24 Hr Interval Summary Free Text/Dictation Patient is doing better. No overnight events. Spoke to him in Swedish about the care plan. 15 minutes spent. Exam/Review of Systems Vital Signs Vitals Vital Signs Date Time Temp Pulse Resp B/P Pulse Ox O2 Delivery O2 Flow Rate FiO2 11/30/16 08:17 98.1 61 20 93/60 98 11/28/16 22:55 Room Air Intake and Output 11/29/16 11/29/16 11/30/16 15:00 23:00 07:00 Intake Total 1206 ml 200 ml Output Total 1800 ml Balance -594 ml 200 ml Exam Gen Abel: mild distress 2/2 to suprapubic pain, AAOx4 HEENT: NC/AT, PERRLA, EOMI, no pharyngeal erythema, no tonsillar exudates, no lymphadenopathy, no JVD, no carotid bruits NECK: supple, no thyromegaly THORAX: symmetrical, no obvious deformities CV: S1S2, RRR, no M/G/R Lungs: CTAB no W/C/R/R Abd: soft, NT/ND, +BS, no rebound, no guarding, neg HSM, suprapubic catheter site with surrounding erythema, foul smell EXT: contractures, quadriplegic Neuro: quadriplegia Psych: fair mood and affect Skin: C/D/I Results Result Diagram: 11/30/16 0857 11/30/16 0857 Results 24 hrs Laboratory Tests Test 11/29/16 12:47 11/29/16 17:18 11/29/16 20:29 11/30/16 08:13 Bedside Glucose 189 110 175 218 Test 11/30/16 08:57 Anion Gap 19 H Basophils # 0.2 H Basophils % 1.6 Blood Urea Nitrogen 39 #H Calcium Level 8.9 Carbon Dioxide Level 24 Chloride Level 99 Creatinine 0.76 Eosinophils # 0.4 Eosinophils % 4.8 Glucose Level 224 H Hematocrit 37.2 L Hemoglobin 11.5 L Lymphocytes # 3.1 H Lymphocytes % 33.9 Mean Corpuscular Hemoglobin 24.3 L Mean Corpuscular Hemoglobin Concent 30.9 L Mean Corpuscular Volume 78.5 L Mean Platelet Volume 8.8 # Monocytes # 0.7 Monocytes % 7.5 Neutrophils # 4.7 Neutrophils % 51.7 Nucleated Red Blood Cells # 0.0 Nucleated Red Blood Cells % 0.0 Platelet Count 378 # Potassium Level 4.0 Red Blood Count 4.74 Red Cell Distribution Width 18.1 H Sodium Level 138 White Blood Count 9.2 # Medications Medications Current Medications Ondansetron HCl (Zofran Inj) 4 mg Q6H PRN IV NAUSEA AND/OR VOMITING; Start 11/28 at 18:30 Acetaminophen (Tylenol Tab) 650 mg Q6H PRN PO PAIN LEVEL 1-3 OR FEVER; Start at 18:30 Acetaminophen/ Hydrocodone Bitart ([place] (5/325)) 1 tab Q6H PRN PO MODERATE PAIN LEVEL 4-6; Start 11/28/16 at 18:30 Morphine Sulfate (morphine) 2 mg Q4H PRN IV SEVERE PAIN LEVEL 7-10; Start at 18:30 Docusate Sodium (Colace) 100 mg Q12H PRN PO CONSTIPATION; Start 11/28/16 at 18: 30 Famotidine (Pepcid Iv) 20 mg Q12 IV Last administered on 11/30/16 09:07; Admin Dose 20 MG; Start 11/28/16 at 21:00 Enoxaparin Sodium (Lovenox) 40 mg DAILY SC Last administered on 11/30/16 09:15 ; Admin Dose 40 MG; Start 11/29/16 at 09:00 Amlodipine Besylate (Norvasc) 10 mg DAILY PO Last administered on 11/29/16 11: 05; Admin Dose 10 MG; Start 11/29/16 at 09:00 Ascorbic Acid (Vitamin C) 500 mg DAILY PO Last administered on 11/30/16 09:07; Admin Dose 500 MG; Start 11/29/16 at 09:00 Baclofen (Lioresal) 20 mg TID PO Last administered on 11/30/16 09:07; Admin Dose 20 MG; Start 11/28/16 at 21:00 Bisacodyl (Dulcolax Supp) 10 mg DAILY CA Last administered on 11/30/16 09:07; Admin Dose 10 MG; Start 11/29/16 at 09:00 Ferrous Sulfate (Ferrous Sulfate (Ec)) 325 mg DAILY PO Last administered on 11/30 09:07; Admin Dose 325 MG; Start 11/29/16 at 09:00 Magnesium Hydroxide (Milk Of Mag) 30 ml QHS PRN PO CONSTIPATION; Start 11/28/16 at 18:30 Zinc Sulfate (Zinc Sulfate) 220 mg DAILY PO Last administered on 11/30/16 09:07 ; Admin Dose 220 MG; Start 11/29/16 at 09:00 Multivitamins/ Minerals (Theragran-M) 1 tab DAILY PO Last administered on 09:07; Admin Dose 1 TAB; Start 11/29/16 at 09:00 Fish Oil 1000 mg 1,000 mg DAILY PO Last administered on 11/30/16 09:07; Admin Dose 1,000 MG; Start 11/29/16 at 09:00 Levofloxacin/ Dextrose (Levaquin 500mg/ D5W 100 ml (Pmx)) 100 ml @ 100 mls/hr Q24H IVPB Last administered on 11/29/16 17:58; Admin Dose 100 MLS/HR; Start 11/28/16 at 18:30 Miscellaneous Information 1 ea NOTE XX ; Start 11/28/16 at 18:30 Glucose (Glutose) 15 gm Q15M PRN PO DECREASED GLUCOSE; Start 11/28/16 at 18:30 Glucose (Glutose) 22.5 gm Q15M PRN PO DECREASED GLUCOSE; Start 11/28/16 at 18:30 Dextrose (D50w Syringe) 25 ml Q15M PRN IV DECREASED GLUCOSE; Start 11/28/16 at 18:30 Dextrose (D50w Syringe) 50 ml Q15M PRN IV DECREASED GLUCOSE; Start 11/28/16 at 18:30 Glucagon (Glucagen) 1 mg Q15M PRN IM DECREASED GLUCOSE; Start 11/28/16 at 18:30 Glucose (Glutose) 15 gm Q15M PRN BUCCAL DECREASED GLUCOSE; Start 11/28/16 at 18: 30 Nystatin (Nystatin Powder) 1 applic BID TOP Last administered on 11/30/16 09:16 ; Admin Dose 1 APPLIC; Start 11/28/16 at 21:00 Insulin Glargine (Lantus) 15 unit DAILY@20 SC Last administered on 11/29/16 20: 34; Admin Dose 15 UNIT; Start 11/29/16 at 20:00 Diagnostic Test (Pha) (Accucheck) 1 ea 02 XX ; Start 11/30/16 at 02:00 Collagenase (Santyl) 1 applic DAILY TOP ; Start 11/29/16 at 14:30 UCHE GLASS MD Nov 30, 2016 11:27
--- NOTE | 2016-11-30 11:46 | RADRPT ---
Vent Rate: 117 bpm RR Interval: 0 msec RI Interval: 132 msec QRS Duration: 82 msec QT Interval: 346 msec QTC Interval: 482 msec P-R-T [place]: 60 - 78 - 82 degrees Sinus tachycardia Otherwise normal ECG Electronically Signed By: Casper Chavez [id number]
[2016-11-30] MEDS: LEVOFLOXACIN 500MG/D5W (PMX) 100 ML IVPB SCH (17:38)
[2016-11-30] MEDS: FAMOTIDINE 20 MG TAB PO SCH (21:02)
[2016-11-30] MEDS: INSULIN GLARGINE [LANtus] 3 ML PEN SC SCH (21:05)
[2016-11-30 21:21] VITALS: BP 92/58; RESP 16
[2016-12-01] MEDS: ACCUCHECK XX SCH (01:47)
--- NOTE | 2016-12-01 03:47 | RADRPT ---
PROCEDURE: CT Brain without contrast. CLINICAL INDICATION: Altered mental status TECHNIQUE: Axial images from the skull base through the vertex without IV contrast. Multiplanar r eformatted images were made. Images were reviewed on a PACS workstation. The CTDIvol is 45.01 mGy and the DLP is 810.25 mGycm. One or more of the following dose reduction techniques were used: auto mated exposure control, adjustment of the mA and/or kV according to patient size, or use of iterativ e reconstruction technique. COMPARISON: None. FINDINGS: The study is limited by patient motion, particularly the inferior images. The ventricles and cister ns are normal for age. There is no evidence for territorial infarction or intracranial hemorrhage. No mass or midline shift is seen. No extra-axial fluid collection is seen. The visualized parana sanam sinuses and mastoids are clear. IMPRESSION: No definite acute intracranial abnormality. Study limited by patient motion. Repeat study when the patient is able to hold still would be suggested. RPTAT: HLBE Physician Celina Date Time Electronically viewed and signed by Physician Celina on 12/01/2016 03:46 LE/
[2016-12-01 05:56] LABS: ADD SCAN DIFF NO
[2016-12-01 06:00] LABS: BASOPHIL # 0.2 10^3/ul (0.0-0.1); BASOPHILS % 1.7 % (0.0-2.0); EOSINOPHILS # 0.5 10^3/ul (0.0-0.5); EOSINOPHILS % 4.4 % (0.0-7.0); HEMATOCRIT 37.3 % (42.0-52.0); HEMOGLOBIN 11.4 g/dl (14.0-18.0); LYMPHOCYTES # 3.6 10^3/ul (0.8-2.9); LYMPHOCYTES % 35.3 % (15.0-51.0); MEAN CORPUSCULAR HEMOGLOBIN 24.2 pg (29.0-33.0); MEAN CORPUSCULAR HGB CONC 30.6 g/dl (32.0-37.0); MEAN CORPUSCULAR VOLUME 79.2 fl (82.0-101.0); MEAN PLATELET VOLUME 9.1 fl (7.4-10.4); MONOCYTE # 0.6 10^3/ul (0.3-0.9); MONOCYTES % 5.9 % (0.0-11.0); NEUTROPHIL # 5.3 10^3/ul (1.6-7.5); NEUTROPHILS % 52.2 % (39.0-77.0); PLATELET COUNT 431 10^3/UL (140-415); RED BLOOD COUNT 4.71 10^6/ul (4.70-6.10); WHITE BLOOD COUNT 10.1 10^3/ul (4.8-10.8)
[2016-12-01 06:35] LABS: POTASSIUM 4.3 mmol/L (3.5-5.1)
[2016-12-01 06:38] LABS: CREATININE 1.22 mg/dl (0.61-1.24)
[2016-12-01 08:34] VITALS: BP 102/52; RESP 18
[2016-12-01 08:35] VITALS: BP 102/52; RESP 18
[2016-12-01] MEDS: INSULIN ASPART [NOVOLOG] 3 ML PEN SC SCH ×7 (08:57→21:00)
[2016-12-01] MEDS: FERROUS SULFATE (EC) 325 MG TAB PO SCH (08:58)
[2016-12-01] MEDS: FAMOTIDINE 20 MG TAB PO SCH ×2 (08:58→21:12)
[2016-12-01] MEDS: BACLOFEN 10 MG TAB PO SCH ×3 (08:58→21:12)
[2016-12-01] MEDS: ASCORBIC ACID 500 MG TAB PO SCH (08:58)
[2016-12-01] MEDS: MULTIVITAMINS/MINERALS TAB PO SCH (08:58)
[2016-12-01] MEDS: BISACODYL 10 MG SUPP PR SCH (08:59)
[2016-12-01] MEDS: ENOXAPARIN 40 MG/0.4 ML SYG SC SCH (08:59)
[2016-12-01] MEDS: ZINC SULFATE 220 MG CAP PO SCH (08:59)
[2016-12-01] MEDS: FISH OIL 1,000 MG CAP PO SCH (09:00)
[2016-12-01] MEDS: AMLODIPINE 10 MG TAB PO SCH (09:00)
[2016-12-01] MEDS: COLLAGENASE 30 GM TUBE TOP SCH (09:01)
[2016-12-01] MEDS: NYSTATIN 30 GM POWDER BTL TOP SCH ×2 (09:01→21:16)
[2016-12-01] MEDS: metFORMIN 500 MG TAB PO SCH ×2 (09:12→17:39)
--- NOTE | 2016-12-01 14:10 | PN ---
Date/Time of Note Date/Time of Note DATE: 12/01/16 TIME: 14:07 Assessment/Plan VTE Prophylaxis VTE Prophylaxis Intervention: LMWH Lines/Catheters IV Catheter Type (from Nrs): Saline Lock Assessment/Plan Assessment/Plan 61 yo male with a past medical history of quadriplegia, type II DM, depression, CKD, who presents with suprapubic catheter leakage and foul smelling urine. 1. UTI - culture shows Acinobacter Baumanii/enterococcus spp - appreciate ID c/s 2. Leukocytosis 2/2 to #1 - worsening - there is a sacral ulcer noted - appreciate wound care - resolved/improved 3. Malfunctioning suprapubic catheter - appreciate urology recs - needs films from prior placement in order to determine how to remove and replace 4. Type II DM - hgba1c 8.4 - diabetic consult, ISS, c/w metformin - added lantus and novolog 5. CKD - stage I/II - will continue with renally adjusting medications, avoid nephrotoxins 6. Anemia - microcytic - occult blood, transfuse if hgb < 7.5 g/dL - iron deficient supplementation started 7. Quadriplegia - continue with pain meds, PT eval/tx 8. Depression - continue with SSRI 9. Hypomagnesemia - replete 10. Acute encephalopathy - behavior changes - malingering - start seroquel 25 mg po qhs 11. GI ppx - pepcid po 12. DVT ppx - lovenox dispo - f/u urology, as per clinical course, f/u labs, retrieve the records this progress note took greater than 30 minutes to complete Subjective 24 Hr Interval Summary Free Text/Dictation Patient has been noted to be more agitated than normal. Hitting his arms against the side rails. Spoke to the nursing staff about the care plan. 15 minutes spent. Exam/Review of Systems Vital Signs Vitals Vital Signs Date Time Temp Pulse Resp B/P Pulse Ox O2 Delivery O2 Flow Rate FiO2 12/01/16 08:35 58 18 102/52 96 11/30/16 21:21 97.5 11/28/16 22:55 Room Air Intake and Output 11/30/16 11/30/16 12/01/16 15:00 23:00 07:00 Intake Total 660 ml 100 ml Balance 660 ml 100 ml Exam Gen Abel: mild distress 2/2 to suprapubic pain, AAOx4 HEENT: NC/AT, PERRLA, EOMI, no pharyngeal erythema, no tonsillar exudates, no lymphadenopathy, no JVD, no carotid bruits NECK: supple, no thyromegaly THORAX: symmetrical, no obvious deformities CV: S1S2, RRR, no M/G/R Lungs: CTAB no W/C/R/R Abd: soft, NT/ND, +BS, no rebound, no guarding, neg HSM, suprapubic catheter site with surrounding erythema, foul smell EXT: contractures, quadriplegic Neuro: quadriplegia Psych: agitated, aggressive Skin: C/D/I Results Result Diagram: 12/01/16 0435 12/01/16 0435 Results 24 hrs Laboratory Tests Test 11/30/16 16:05 11/30/16 17:31 11/30/16 20:12 11/30/16 23:24 Bedside Glucose 143 136 157 128 Test 12/01/16 04:35 12/01/16 08:55 12/01/16 12:43 Anion Gap 21 H Basophils # 0.2 H Basophils % 1.7 Blood Urea Nitrogen 51 H Calcium Level 9.0 Carbon Dioxide Level 25 Chloride Level 100 Creatinine 1.22 Eosinophils # 0.5 Eosinophils % 4.4 Glucose Level 156 Hematocrit 37.3 L Hemoglobin 11.4 L Lymphocytes # 3.6 H Lymphocytes % 35.3 Mean Corpuscular Hemoglobin 24.2 L Mean Corpuscular Hemoglobin Concent 30.6 L Mean Corpuscular Volume 79.2 L Mean Platelet Volume 9.1 Monocytes # 0.6 Monocytes % 5.9 Neutrophils # 5.3 Neutrophils % 52.2 Nucleated Red Blood Cells # 0.0 Nucleated Red Blood Cells % 0.0 Platelet Count 431 H Potassium Level 4.3 Red Blood Count 4.71 Red Cell Distribution Width 18.0 H Sodium Level 142 White Blood Count 10.1 Bedside Glucose 163 111 Medications Medications Current Medications Ondansetron HCl (Zofran Inj) 4 mg Q6H PRN IV NAUSEA AND/OR VOMITING; Start 11/28 at 18:30 Acetaminophen (Tylenol Tab) 650 mg Q6H PRN PO PAIN LEVEL 1-3 OR FEVER; Start at 18:30 Acetaminophen/ Hydrocodone Bitart ([place] (5/325)) 1 tab Q6H PRN PO MODERATE PAIN LEVEL 4-6; Start 11/28/16 at 18:30 Morphine Sulfate (morphine) 2 mg Q4H PRN IV SEVERE PAIN LEVEL 7-10; Start at 18:30 Docusate Sodium (Colace) 100 mg Q12H PRN PO CONSTIPATION; Start 11/28/16 at 18: 30 Enoxaparin Sodium (Lovenox) 40 mg DAILY SC Last administered on 12/01/16 08:59 ; Admin Dose 40 MG; Start 11/29/16 at 09:00 Amlodipine Besylate (Norvasc) 10 mg DAILY PO Last administered on 11/29/16 11: 05; Admin Dose 10 MG; Start 11/29/16 at 09:00 Ascorbic Acid (Vitamin C) 500 mg DAILY PO Last administered on 12/01/16 08:58 ; Admin Dose 500 MG; Start 11/29/16 at 09:00 Baclofen (Lioresal) 20 mg TID PO Last administered on 12/01/16 08:58; Admin Dose 20 MG; Start 11/28/16 at 21:00 Bisacodyl (Dulcolax Supp) 10 mg DAILY MO Last administered on 12/01/16 08:59; Admin Dose 10 MG; Start 11/29/16 at 09:00 Ferrous Sulfate (Ferrous Sulfate (Ec)) 325 mg DAILY PO Last administered on 08:58; Admin Dose 325 MG; Start 11/29/16 at 09:00 Magnesium Hydroxide (Milk Of Mag) 30 ml QHS PRN PO CONSTIPATION; Start 11/28/16 at 18:30 Zinc Sulfate (Zinc Sulfate) 220 mg DAILY PO Last administered on 12/01/16 08: 59; Admin Dose 220 MG; Start 11/29/16 at 09:00 Multivitamins/ Minerals (Theragran-M) 1 tab DAILY PO Last administered on 08:58; Admin Dose 1 TAB; Start 11/29/16 at 09:00 Fish Oil 1000 mg 1,000 mg DAILY PO Last administered on 12/01/16 09:00; Admin Dose 1,000 MG; Start 11/29/16 at 09:00 Levofloxacin/ Dextrose (Levaquin 500mg/ D5W 100 ml (Pmx)) 100 ml @ 100 mls/hr Q24H IVPB Last administered on 11/30/16 17:38; Admin Dose 100 MLS/HR; Start 11/28/16 at 18:30 Miscellaneous Information 1 ea NOTE XX ; Start 11/28/16 at 18:30 Glucose (Glutose) 15 gm Q15M PRN PO DECREASED GLUCOSE; Start 11/28/16 at 18:30 Glucose (Glutose) 22.5 gm Q15M PRN PO DECREASED GLUCOSE; Start 11/28/16 at 18:30 Dextrose (D50w Syringe) 25 ml Q15M PRN IV DECREASED GLUCOSE; Start 11/28/16 at 18:30 Dextrose (D50w Syringe) 50 ml Q15M PRN IV DECREASED GLUCOSE; Start 11/28/16 at 18:30 Glucagon (Glucagen) 1 mg Q15M PRN IM DECREASED GLUCOSE; Start 11/28/16 at 18:30 Glucose (Glutose) 15 gm Q15M PRN BUCCAL DECREASED GLUCOSE; Start 11/28/16 at 18: 30 Nystatin (Nystatin Powder) 1 applic BID TOP Last administered on 12/01/16 09: 01; Admin Dose 1 APPLIC; Start 11/28/16 at 21:00 Insulin Glargine (Lantus) 15 unit DAILY@20 SC Last administered on 11/30/16 21: 05; Admin Dose 15 UNIT; Start 11/29/16 at 20:00 Diagnostic Test (Pha) (Accucheck) 1 ea 02 XX ; Start 11/30/16 at 02:00 Collagenase (Santyl) 1 applic DAILY TOP Last administered on 12/01/16 09:01; Admin Dose 1 APPLIC; Start 11/29/16 at 14:30 Famotidine (Pepcid) 20 mg BID PO Last administered on 12/01/16 08:58; Admin Dose 20 MG; Start 11/30/16 at 21:00 UCHE GLASS MD Dec 01, 2016 14:10
[2016-12-01] MEDS: LEVOFLOXACIN 500MG/D5W (PMX) 100 ML IVPB SCH (18:47)
[2016-12-01 19:34] VITALS: BP 95/49; RESP 17
[2016-12-01] MEDS: QUETIAPINE 25 MG TAB PO SCH (21:12)
[2016-12-01] MEDS: INSULIN GLARGINE [LANtus] 3 ML PEN SC SCH (21:16)
[2016-12-02] VITALS (7 sets, daily range): BP systolic 78–139; BP diastolic 48–66; PULSE 59–75; RESP 18
[2016-12-02] MEDS: ACCUCHECK XX SCH (01:13)
[2016-12-02 05:05] LABS: ADD SCAN DIFF NO
[2016-12-02 05:29] LABS: ABNORMAL IP MESSAGE 1; BASOPHIL # 0.1 10^3/ul (0.0-0.1); BASOPHILS % 1.1 % (0.0-2.0); EOSINOPHILS # 0.4 10^3/ul (0.0-0.5); EOSINOPHILS % 3.6 % (0.0-7.0); HEMATOCRIT 37.3 % (42.0-52.0); HEMOGLOBIN 11.8 g/dl (14.0-18.0); LYMPHOCYTES % 41.5 % (15.0-51.0); MEAN CORPUSCULAR HEMOGLOBIN 24.9 pg (29.0-33.0); MEAN CORPUSCULAR HGB CONC 31.6 g/dl (32.0-37.0); MEAN CORPUSCULAR VOLUME 78.7 fl (82.0-101.0); MONOCYTE # 0.8 10^3/ul (0.3-0.9); MONOCYTES % 6.9 % (0.0-11.0); NEUTROPHIL # 5.6 10^3/ul (1.6-7.5); NEUTROPHILS % 46.2 % (39.0-77.0); PLATELET COUNT 473 10^3/UL (140-415); RED BLOOD COUNT 4.74 10^6/ul (4.70-6.10); RED CELL DISTRIBUTION WIDTH 18.1 % (11.5-14.5); WHITE BLOOD COUNT 12.1 10^3/ul (4.8-10.8)
[2016-12-02 05:46] LABS: POTASSIUM 4.4 mmol/L (3.5-5.1)
[2016-12-02 05:49] LABS: CALCIUM 9.2 mg/dl (8.4-10.2); CREATININE 0.84 mg/dl (0.61-1.24)
[2016-12-02] MEDS: INSULIN ASPART [NOVOLOG] 3 ML PEN SC SCH ×7 (08:07→21:00)
[2016-12-02] MEDS: metFORMIN 500 MG TAB PO SCH ×2 (08:08→17:55)
[2016-12-02] MEDS: SOD CHLORIDE 0.9% 1,000 ML IV SCH ×2 (08:47→21:36)
[2016-12-02] MEDS: AMLODIPINE 10 MG TAB PO SCH (09:00)
[2016-12-02] MEDS: MULTIVITAMINS/MINERALS TAB PO SCH (09:00)
[2016-12-02] MEDS: ENOXAPARIN 40 MG/0.4 ML SYG SC SCH (10:00)
[2016-12-02] MEDS: ASCORBIC ACID 500 MG TAB PO SCH (10:01)
[2016-12-02] MEDS: FAMOTIDINE 20 MG TAB PO SCH ×2 (10:01→21:16)
[2016-12-02] MEDS: FISH OIL 1,000 MG CAP PO SCH (10:01)
[2016-12-02] MEDS: BACLOFEN 10 MG TAB PO SCH ×3 (10:02→21:17)
[2016-12-02] MEDS: ZINC SULFATE 220 MG CAP PO SCH (10:02)
[2016-12-02] MEDS: FERROUS SULFATE (EC) 325 MG TAB PO SCH (10:02)
[2016-12-02] MEDS: BISACODYL 10 MG SUPP PR SCH (10:03)
[2016-12-02] MEDS: COLLAGENASE 30 GM TUBE TOP SCH (10:03)
[2016-12-02] MEDS: NYSTATIN 30 GM POWDER BTL TOP SCH ×2 (10:04→21:35)
--- NOTE | 2016-12-02 10:37 | PN ---
Date/Time of Note Date/Time of Note DATE: 12/02/16 TIME: 10:34 Assessment/Plan VTE Prophylaxis VTE Prophylaxis Intervention: LMWH Lines/Catheters IV C[facility]ter Type [facility]from [facility] Saline Lock Assessment/Plan Assessment/Plan 61 yo male with a past medical history of quadriplegia, type II DM, depression, CKD, who presents with suprapubic catheter leakage and foul smelling urine. 1. UTI - culture shows Acinobacter Baumanii/enterococcus spp - appreciate ID c/s 2. Leukocytosis 2/2 to #1 - there is a sacral ulcer noted - appreciate wound care - worsening 3. Malfunctioning suprapubic catheter - appreciate urology recs - needs films from prior placement in order to determine how to remove and replace - [facility] 4. Type II DM - hgba1c 8.4 - diabetic consult, ISS, c/w metformin - added lantus and novolog 5. CKD - stage I/II - will continue with renally adjusting medications, avoid nephrotoxins 6. Anemia - microcytic - occult blood, transfuse if hgb < 7.5 g/dL - iron deficient supplementation started 7. Quadriplegia - continue with pain meds, PT eval/tx 8. Depression - continue with SSRI 9. Hypomagnesemia - replete 10. Acute encephalopathy - behavior changes - malingering - start seroquel 25 mg po qhs 11. GI ppx - pepcid po 12. DVT ppx - lovenox dispo - f/u urology, as per clinical course, f/u labs, retrieve the records this progress note took greater than 30 minutes to complete Subjective 24 Hr Interval Summary Free Text/Dictation Patient had no overnight, mood is better. No other events. spoke to the nurse about the care plan. 15 minutes spent. Exam/Review of Systems Vital Signs Vitals Vital Signs Date Time Temp Pulse Resp B/P Pulse Ox O2 Delivery O2 Flow Rate FiO2 12/02/16 09:45 66 139/60 12/02/16 07:33 97.6 18 95 11/28/16 22:55 Room Air Intake and Output 12/01/16 12/01/16 12/02/16 15:00 23:00 07:00 Intake Total 50 ml 840 ml Output Total 300 ml Balance 50 ml 540 ml Exam Gen Abel: mild distress 2/2 to suprapubic pain, AAOx4 HEENT: NC/AT, PERRLA, EOMI, no pharyngeal erythema, no tonsillar exudates, no lymphadenopathy, no JVD, no carotid bruits NECK: supple, no thyromegaly THORAX: symmetrical, no obvious deformities CV: S1S2, RRR, no M/G/R Lungs: CTAB no W/C/R/R Abd: soft, NT/ND, +BS, no rebound, no guarding, neg HSM, suprapubic catheter site with surrounding erythema, foul smell EXT: contractures, quadriplegic Neuro: quadriplegia Psych: fair mood and affect Skin: C/D/I Results Result Diagram: 12/02/1644112/02/16441 Results 24 hrs Laboratory Tests Test 12/01/16 12:43 12/01/16 17:38 12/01/16 19:40 12/02/16 04:42 Bedside Glucose 111 107 142 Anion Gap 23 H Basophils # 0.1 Basophils % 1.1 Blood Urea Nitrogen 49 H Calcium Level 9.2 Carbon Dioxide Level 23 Chloride Level 99 Creatinine 0.84 Eosinophils # 0.4 Eosinophils % 3.6 Glucose Level 188 Hematocrit 37.3 L Hemoglobin 11.8 L Lymphocytes # 5.0 H Lymphocytes % 41.5 Mean Corpuscular Hemoglobin 24.9 L Mean Corpuscular Hemoglobin Concent 31.6 L Mean Corpuscular Volume 78.7 L Mean Platelet Volume 9.0 Monocytes # 0.8 Monocytes % 6.9 Neutrophils # 5.6 Neutrophils % 46.2 Nucleated Red Blood Cells # 0.0 Nucleated Red Blood Cells % 0.0 Platelet Count 473 H Potassium Level 4.4 Red Blood Count 4.74 Red Cell Distribution Width 18.1 H Sodium Level 141 White Blood Count 12.1 H Test 12/02/16 08:03 Bedside Glucose 161 Medications Medications Current Medications Ondansetron HCl (Zofran Inj) 4 mg Q6H PRN IV NAUSEA AND/OR VOMITING; Start 11/28 at 18:30 Acetaminophen (Tylenol Tab) 650 mg Q6H PRN PO PAIN LEVEL 1-3 OR FEVER; Start at 18:30 Acetaminophen/ Hydrocodone Bitart ([place] (5/325)) 1 tab Q6H PRN PO MODERATE PAIN LEVEL 4-6; Start 11/28/16 at 18:30 Morphine Sulfate (morphine) 2 mg Q4H PRN IV SEVERE PAIN LEVEL 7-10; Start at 18:30 Docusate Sodium (Colace) 100 mg Q12H PRN PO CONSTIPATION; Start 11/28/16 at 18: 30 Enoxaparin Sodium (Lovenox) 40 mg DAILY SC Last administered on 12/02/16 10:00 ; Admin Dose 40 MG; Start 11/29/16 at 09:00 Amlodipine Besylate (Norvasc) 10 mg DAILY PO Last administered on 11/29/16 11: 05; Admin Dose 10 MG; Start 11/29/16 at 09:00 Ascorbic Acid (Vitamin C) 500 mg DAILY PO Last administered on 12/02/16 10:01 ; Admin Dose 500 MG; Start 11/29/16 at 09:00 Baclofen (Lioresal) 20 mg TID PO Last administered on 12/02/16 10:02; Admin Dose 20 MG; Start 11/28/16 at 21:00 Bisacodyl (Dulcolax Supp) 10 mg DAILY UT Last administered on 12/02/16 10:03; Admin Dose 10 MG; Start 11/29/16 at 09:00 Ferrous Sulfate (Ferrous Sulfate (Ec)) 325 mg DAILY PO Last administered on 10:02; Admin Dose 325 MG; Start 11/29/16 at 09:00 Magnesium Hydroxide (Milk Of Mag) 30 ml QHS PRN PO CONSTIPATION; Start 11/28/16 at 18:30 Zinc Sulfate (Zinc Sulfate) 220 mg DAILY PO Last administered on 12/02/16 10: 02; Admin Dose 220 MG; Start 11/29/16 at 09:00 Multivitamins/ Minerals (Theragran-M) 1 tab DAILY PO Last administered on 09:00; Admin Dose 1 TAB; Start 11/29/16 at 09:00 Fish Oil 1000 mg 1,000 mg DAILY PO Last administered on 12/02/16 10:01; Admin Dose 1,000 MG; Start 11/29/16 at 09:00 Levofloxacin/ Dextrose (Levaquin 500mg/ D5W 100 ml (Pmx)) 100 ml @ 100 mls/hr Q24H IVPB Last administered on 12/01/16 18:47; Admin Dose 100 MLS/HR; Start at 18:30 Miscellaneous Information 1 ea NOTE XX ; Start 11/28/16 at 18:30 Glucose (Glutose) 15 gm Q15M PRN PO DECREASED GLUCOSE; Start 11/28/16 at 18:30 Glucose (Glutose) 22.5 gm Q15M PRN PO DECREASED GLUCOSE; Start 11/28/16 at 18:30 Dextrose (D50w Syringe) 25 ml Q15M PRN IV DECREASED GLUCOSE; Start 11/28/16 at 18:30 Dextrose (D50w Syringe) 50 ml Q15M PRN IV DECREASED GLUCOSE; Start 11/28/16 at 18:30 Glucagon (Glucagen) 1 mg Q15M PRN IM DECREASED GLUCOSE; Start 11/28/16 at 18:30 Glucose (Glutose) 15 gm Q15M PRN BUCCAL DECREASED GLUCOSE; Start 11/28/16 at 18: 30 Nystatin (Nystatin Powder) 1 applic BID TOP Last administered on 12/02/16 10: 04; Admin Dose 1 APPLIC; Start 11/28/16 at 21:00 Insulin Glargine (Lantus) 15 unit DAILY@20 SC Last administered on 12/01/16 21 :16; Admin Dose 15 UNIT; Start 11/29/16 at 20:00 Diagnostic Test (Pha) (Accucheck) 1 ea 02 XX ; Start 11/30/16 at 02:00 Collagenase (Santyl) 1 applic DAILY TOP Last administered on 12/02/16 10:03; Admin Dose 1 APPLIC; Start 11/29/16 at 14:30 Famotidine (Pepcid) 20 mg BID PO Last administered on 12/02/16 10:01; Admin Dose 20 MG; Start 11/30/16 at 21:00 Quetiapine Fumarate 25 mg 25 mg QHS PO Last administered on 12/01/16 21:12; Admin Dose 25 MG; Start 12/01/16 at 21:00 Sodium Chloride (NS) 1,000 ml @ 75 mls/hr [id number] IV Last administered on 12/02 08:47; Admin Dose 75 MLS/HR; Start 12/02/16 at 09:00 UCHE GLASS MD Dec 02, 2016 10:37
--- NOTE | 2016-12-02 12:05 | PN ---
DATE: 12/02/2016 SUBJECTIVE: Suprapubic tube that is draining, but leakage around it. The patient himself is not mu ch of a historian. OBJECTIVE: VITAL SIGNS: He is afebrile. Temperature is 97.6, blood pressure 117/66, respiratory rate is 18 an d pulse is 75. CBC shows a white count of 12.1, hemoglobin 11.8, hematocrit 37.3. The BUN is 49, creatinine 0.84, sodium 141, potassium 4.4, chloride 99, CO2 23. The urine culture shows acinetobacter baumannii. Th e patient is on the antibiotic Levaquin. I tried to today to call his medical doctor, , bu t he is not transmission specialist today. Another doctor is covering and the other doctor does not know anything a bout this patient. We also tried to call the care home that sent him here to find out where he h ad the suprapubic tube put in or changed before. This suprapubic tube is not a regular Potter cathete r to have the balloon deflated and removed it and replace it. It must have been put in by a radiolo gist and therefore he needs to have it replaced by the same person who put it in because it may need to a stylet to be put in to straighten up of the catheter. Dictated By: NAJMA SR/KOREY Conf#: [id number] DID#: [id number]
[2016-12-02] MEDS: LEVOFLOXACIN 500MG/D5W (PMX) 100 ML IVPB SCH (17:55)
[2016-12-02] MEDS: QUETIAPINE 25 MG TAB PO SCH (21:17)
[2016-12-02] MEDS: INSULIN GLARGINE [LANtus] 3 ML PEN SC SCH (21:23)
[2016-12-03] VITALS (59 sets, daily range): BP systolic 48–203; BP diastolic 38–132; PULSE 57–113; RESP 9–30
[2016-12-03] MEDS: ACCUCHECK XX SCH (02:00)
[2016-12-03 06:18] LABS: BASOPHIL # 0.1 10^3/ul (0.0-0.1); BASOPHILS % 0.9 % (0.0-2.0); EOSINOPHILS # 0.6 10^3/ul (0.0-0.5); EOSINOPHILS % 5.8 % (0.0-7.0); HEMOGLOBIN 12.6 g/dl (14.0-18.0); LYMPHOCYTES # 4.4 10^3/ul (0.8-2.9); LYMPHOCYTES % 39.4 % (15.0-51.0); MEAN CORPUSCULAR HEMOGLOBIN 25.4 pg (29.0-33.0); MEAN CORPUSCULAR VOLUME 77.1 fl (82.0-101.0); MEAN PLATELET VOLUME 7.5 fl (7.4-10.4); MONOCYTE # 0.8 10^3/ul (0.3-0.9); MONOCYTES % 6.9 % (0.0-11.0); NEUTROPHIL # 5.2 10^3/ul (1.6-7.5); PLATELET COUNT 455 10^3/UL (140-440); RED BLOOD COUNT 4.93 10^6/ul (4.70-6.10); RED CELL DISTRIBUTION WIDTH 19.1 % (11.5-14.5); UNCORRECTED WBC 11.1 10^3/ul (4.8-10.8); WHITE BLOOD COUNT 11.1 10^3/ul (4.8-10.8)
[2016-12-03 06:38] LABS: CONDITION 1; LH ANALYZER COMMENTS 1
[2016-12-03 06:46] LABS: CREATININE 0.76 mg/dl (0.61-1.24)
[2016-12-03 06:47] LABS: CALCIUM 8.8 mg/dl (8.4-10.2)
[2016-12-03] MEDS ORDERED: SOD CHLORIDE 0.9% 1,000 ML IV ONE (08:00)
[2016-12-03] MEDS: AMLODIPINE 10 MG TAB PO SCH (08:49)
[2016-12-03] MEDS: INSULIN ASPART [NOVOLOG] 3 ML PEN SC SCH ×6 (09:00→20:15)
[2016-12-03] MEDS: ENOXAPARIN 40 MG/0.4 ML SYG SC SCH (09:01)
[2016-12-03] MEDS: metFORMIN 500 MG TAB PO SCH ×2 (09:04→17:03)
[2016-12-03] MEDS: FERROUS SULFATE (EC) 325 MG TAB PO SCH (09:04)
[2016-12-03] MEDS: FISH OIL 1,000 MG CAP PO SCH (09:04)
[2016-12-03] MEDS: BACLOFEN 10 MG TAB PO SCH ×3 (09:05→20:15)
[2016-12-03] MEDS: FAMOTIDINE 20 MG TAB PO SCH ×2 (09:05→20:15)
[2016-12-03] MEDS: MULTIVITAMINS/MINERALS TAB PO SCH (09:05)
[2016-12-03] MEDS: BISACODYL 10 MG SUPP PR SCH (09:05)
[2016-12-03] MEDS: ASCORBIC ACID 500 MG TAB PO SCH (09:05)
[2016-12-03] MEDS: ZINC SULFATE 220 MG CAP PO SCH (09:05)
[2016-12-03] MEDS: COLLAGENASE 30 GM TUBE TOP SCH (09:06)
[2016-12-03] MEDS: NYSTATIN 30 GM POWDER BTL TOP SCH ×2 (09:06→20:26)
[2016-12-03] MEDS: SOD CHLORIDE 0.9% 1,000 ML IV SCH (11:44)
--- NOTE | 2016-12-03 12:19 | PN ---
Date/Time of Note Date/Time of Note DATE: 12/03/16 TIME: 12:16 Assessment/Plan VTE Prophylaxis VTE Prophylaxis Intervention: LMWH Lines/Catheters IV Catheter Type (from Nrs): Peripheral IV Assessment/Plan Assessment/Plan 61 yo male with a past medical history of quadriplegia, type II DM, depression, CKD, who presents with suprapubic catheter leakage and foul smelling urine. 1.Septic Shock - will start levophed. IV antibiotics. culture shows Acinobacter Baumanii/enterococcus spp - appreciate ID c/s 2. Leukocytosis 11/23 to #1 - there is a sacral ulcer noted - appreciate wound care - worsening 3. Malfunctioning suprapubic catheter - appreciate urology recs - needs films from prior placement in order to determine how to remove and replace - awaiting records from [facility] 4. Type II DM - hgba1c 8.4 - diabetic consult, ISS, c/w metformin - added lantus and novolog 5. CKD - stage I/II - will continue with renally adjusting medications, avoid nephrotoxins 6. Anemia - microcytic - occult blood, transfuse if hgb < 7.5 g/dL - iron deficient supplementation started 7. Quadriplegia - continue with pain meds, PT eval/tx 8. Depression - continue with SSRI 9. Hypomagnesemia - replete 10. Acute encephalopathy - behavior changes - malingering - start seroquel 25 mg po qhs 11. GI ppx - pepcid po 12. DVT ppx - lovenox dispo - f/u urology, as per clinical course, f/u labs, retrieve the records, central line needed, critical care consulted this critical care note took greater than 45 minutes to complete Subjective 24 Hr Interval Summary Free Text/Dictation Patient had to be transferred to the ICU 11/23 to having hypotension after 1 L bolus. Otherwise no other events. Spoke to the patient about the care plan. 15 minutes spent. Exam/Review of Systems Vital Signs Vitals Vital Signs Date Time Temp Pulse Resp B/P Pulse Ox O2 Delivery O2 Flow Rate FiO2 12/03/16 12:14 86 12/03/16 11:09 2.0 12/03/16 09:25 18 62/41 99 Room Air 12/03/16 08:17 97.5 Intake and Output 12/02/16 12/02/16 12/03/16 15:00 23:00 07:00 Intake Total 100 ml 2560 ml 840 ml Output Total 100 ml 700 ml Balance 100 ml 2460 ml 140 ml Exam Gen Abel: mild distress 2/2 to suprapubic pain, AAOx4 HEENT: NC/AT, PERRLA, EOMI, no pharyngeal erythema, no tonsillar exudates, no lymphadenopathy, no JVD, no carotid bruits NECK: supple, no thyromegaly THORAX: symmetrical, no obvious deformities CV: S1S2, RRR, no M/G/R Lungs: CTAB no W/C/R/R Abd: soft, NT/ND, +BS, no rebound, no guarding, neg HSM, suprapubic catheter site with surrounding erythema, foul smell EXT: contractures, quadriplegic Neuro: quadriplegia Psych: fair mood and affect Skin: C/D/I Results Result Diagram: 12/03/1652012/03/16520 Results 24 hrs Laboratory Tests Test 12/02/16 17:38 12/02/16 21:20 12/03/16 05:21 12/03/16 07:59 Bedside Glucose 181 159 150 Anion Gap 21 H Basophils # 0.1 Basophils % 0.9 Blood Morphology Comment Blood Urea Nitrogen 43 H Calcium Level 8.8 Carbon Dioxide Level 25 Chloride Level 104 Creatinine 0.76 Eosinophils # 0.6 H Eosinophils % 5.8 Glucose Level 150 Hematocrit 38.0 L Hemoglobin 12.6 L Lymphocytes # 4.4 H Lymphocytes % 39.4 Mean Corpuscular Hemoglobin 25.4 L Mean Corpuscular Hemoglobin Concent 33.0 Mean Corpuscular Volume 77.1 L Mean Platelet Volume 7.5 Monocytes # 0.8 Monocytes % 6.9 Neutrophils # 5.2 Neutrophils % 47.0 Nucleated Red Blood Cells # 0.0 Nucleated Red Blood Cells % 0.0 Platelet Count 455 #H Potassium Level 4.0 Red Blood Count 4.93 Red Cell Distribution Width 19.1 H Sodium Level 146 H White Blood Count 11.1 H Test 12/03/16 11:45 Bedside Glucose 207 Medications Medications Current Medications Ondansetron HCl (Zofran Inj) 4 mg Q6H PRN IV NAUSEA AND/OR VOMITING; Start 11/28 at 18:30 Acetaminophen (Tylenol Tab) 650 mg Q6H PRN PO PAIN LEVEL 1-3 OR FEVER; Start at 18:30 Acetaminophen/ Hydrocodone Bitart ([place] (5/325)) 1 tab Q6H PRN PO MODERATE PAIN LEVEL 4-6; Start 11/28/16 at 18:30 Morphine Sulfate (morphine) 2 mg Q4H PRN IV SEVERE PAIN LEVEL 7-10; Start at 18:30 Docusate Sodium (Colace) 100 mg Q12H PRN PO CONSTIPATION; Start 11/28/16 at 18: 30 Enoxaparin Sodium (Lovenox) 40 mg DAILY SC Last administered on 12/03/16 09:01 ; Admin Dose 40 MG; Start 11/29/16 at 09:00 Amlodipine Besylate (Norvasc) 10 mg DAILY PO Last administered on 11/29/16 11: 05; Admin Dose 10 MG; Start 11/29/16 at 09:00 Ascorbic Acid (Vitamin C) 500 mg DAILY PO Last administered on 12/03/16 09:05 ; Admin Dose 500 MG; Start 11/29/16 at 09:00 Baclofen (Lioresal) 20 mg TID PO Last administered on 12/03/16 09:05; Admin Dose 20 MG; Start 11/28/16 at 21:00 Bisacodyl (Dulcolax Supp) 10 mg DAILY NM Last administered on 12/03/16 09:05; Admin Dose 10 MG; Start 11/29/16 at 09:00 Ferrous Sulfate (Ferrous Sulfate (Ec)) 325 mg DAILY PO Last administered on 09:04; Admin Dose 325 MG; Start 11/29/16 at 09:00 Magnesium Hydroxide (Milk Of Mag) 30 ml QHS PRN PO CONSTIPATION; Start 11/28/16 at 18:30 Zinc Sulfate (Zinc Sulfate) 220 mg DAILY PO Last administered on 12/03/16 09: 05; Admin Dose 220 MG; Start 11/29/16 at 09:00 Multivitamins/ Minerals (Theragran-M) 1 tab DAILY PO Last administered on 09:05; Admin Dose 1 TAB; Start 11/29/16 at 09:00 Fish Oil 1000 mg 1,000 mg DAILY PO Last administered on 12/03/16 09:04; Admin Dose 1,000 MG; Start 11/29/16 at 09:00 Levofloxacin/ Dextrose (Levaquin 500mg/ D5W 100 ml (Pmx)) 100 ml @ 100 mls/hr Q24H IVPB Last administered on 12/02/16 17:55; Admin Dose 100 MLS/HR; Start at 18:30 Miscellaneous Information 1 ea NOTE XX ; Start 11/28/16 at 18:30 Glucose (Glutose) 15 gm Q15M PRN PO DECREASED GLUCOSE; Start 11/28/16 at 18:30 Glucose (Glutose) 22.5 gm Q15M PRN PO DECREASED GLUCOSE; Start 11/28/16 at 18:30 Dextrose (D50w Syringe) 25 ml Q15M PRN IV DECREASED GLUCOSE; Start 11/28/16 at 18:30 Dextrose (D50w Syringe) 50 ml Q15M PRN IV DECREASED GLUCOSE; Start 11/28/16 at 18:30 Glucagon (Glucagen) 1 mg Q15M PRN IM DECREASED GLUCOSE; Start 11/28/16 at 18:30 Glucose (Glutose) 15 gm Q15M PRN BUCCAL DECREASED GLUCOSE; Start 11/28/16 at 18: 30 Nystatin (Nystatin Powder) 1 applic BID TOP Last administered on 12/03/16 09: 06; Admin Dose 1 APPLIC; Start 11/28/16 at 21:00 Insulin Glargine (Lantus) 15 unit DAILY@20 SC Last administered on 12/02/16 21 :23; Admin Dose 15 UNIT; Start 11/29/16 at 20:00 Diagnostic Test (Pha) (Accucheck) 1 ea 02 XX ; Start 11/30/16 at 02:00 Collagenase (Santyl) 1 applic DAILY TOP Last administered on 12/03/16 09:06; Admin Dose 1 APPLIC; Start 11/29/16 at 14:30 Famotidine (Pepcid) 20 mg BID PO Last administered on 12/03/16 09:05; Admin Dose 20 MG; Start 11/30/16 at 21:00 Quetiapine Fumarate 25 mg 25 mg QHS PO Last administered on 12/02/16 21:17; Admin Dose 25 MG; Start 12/01/16 at 21:00 Sodium Chloride 1,000 ml @ 75 mls/hr [id number] IV Last administered on 11:44; Admin Dose 75 MLS/HR; Start 12/02/16 at 09:00 Sodium Chloride (NS) 1,000 ml @ 1,000 mls/hr Q1H ONCE IV Last administered on 12/03/16 07:51; Admin Dose 1,000 MLS/HR; Start 12/03/16 at 08:00; Stop at 08:59 UCHE GLASS MD Dec 03, 2016 12:19
[2016-12-03] MEDS ORDERED: NORepinephrine 8MG/250 ML (PMX 250 ML ONE (14:11)
[2016-12-03] MEDS ORDERED: NORepinephrine 8MG/250 ML (PMX 250 ML IV SCH (14:30)
--- NOTE | 2016-12-03 15:52 | RADRPT ---
PROCEDURE: XR Chest. CLINICAL INDICATION: Central line placement TECHNIQUE: Anterior chest x-ray. COMPARISON: None. FINDINGS: There is a right internal jugular first and venous catheter which terminates at the cavoatrial junct ion. The exam is limited due to rotated positioning. The lungs are clear. No pleural effusion identified. There is no evidence of pneumothorax. The cardiomediastinal silhouette is unremarkable. The soft tissues are normal. Osseous structures are unremarkable. IMPRESSION: 1. Satisfactory position of right internal jugular approach central venous catheter. 2. No acute disease is seen in the chest. RPTAT: II .Mike Fonseca MD, MD Date Time Electronically viewed and signed by .Mike Fonseca MD, MD on 12/03/2016 15:52 .M/
--- NOTE | 2016-12-03 17:35 | OPR ---
DATE OF OPERATION: PROCEDURE: Right internal jugular triple lumen central venous catheter insertion. INDICATION: Septic shock and lack of IV access. CONSENT: After risks, alternatives, and benefits of the procedure were explained to the patient, a signed informed consent was obtained. MEDICATIONS USED: Lidocaine 1% of 5 mL locally. TECHNIQUE: Under strict sterile precautions using direct ultrasound guidance, the right internal ju gular vein was cannulated via Seldinger technique and the guidewire was removed. The catheter was s ecured in place with 3-0 silk sutures at about 17 cm. All ports were flushed. COMPLICATIONS: None. FOLLOWUP: A stat chest x-ray was been ordered and is pending. Dictated By: LEONIE ROACH MD NK/NTS Conf#: [id number] DID#: [id number] CC: UCHE GLASS MD; YOANDY DIXON MD;*End*
--- NOTE | 2016-12-03 17:55 | CONS ---
DATE OF ADMISSION: 11/28/2016 DATE OF CONSULTATION: 12/03/2016 TYPE OF CONSULTATION: Pulmonary. PRIMARY PHYSICIAN: Dr. Rivero. HISTORY OF PRESENT ILLNESS: Briefly, this is a 61-year-old gentleman with history of quadriplegia, type 2 diabetes, depression, CKD with a suprapubic catheter in place who was admitted from his [facility] home on 11/28/2016 with foul-smelling urine and what appeared at that point to be a UTI. His hos pital course over the past 4 days has been complicated by a malfunctioning suprapubic catheter, for which he has been seen by urology, and worsening septic shock with culture showing acinetobacter and enterococcus. This morning he was transferred to the ICU given his hypotension and need for resusc itation and initiation of vasopressors. PAST MEDICAL HISTORY: As noted above. PAST SURGICAL HISTORY: Suprapubic catheter placement. FAMILY HISTORY: Noncontributory. SOCIAL HISTORY: No tobacco, illicit drug use, or alcohol. ALLERGIES: NONE. MEDICATIONS: See MAR. REVIEW OF SYSTEMS: As noted in the HPI. PHYSICAL EXAMINATION: VITAL SIGNS: Blood pressure is 62/41, oxygen saturation is 99% on room air, heart rate is 72, tempe rature is 97.5. NECK: Very stiff and immobile. There is no lymphadenopathy. No jugular venous distention. CARDIOVASCULAR: Regular rate and rhythm. S1 and S2. CHEST: Diminished breath sounds bilaterally, but clear. ABDOMEN: Soft, nontender. EXTREMITIES: Very flaccid extremities bilaterally, upper and lower. LABORATORY DATA: WBC is 11.1, hemoglobin is 12.6, platelets are 455. BUN is 43, creatinine is 0.76 . Urine culture shows enterococcus and acinetobacter species. IMPRESSION: 1. Septic shock, likely secondary to urosepsis. 2. Malfunctioning suprapubic catheter. 3. History of quadriplegia. 4. Chronic kidney disease. 5. Anemia. 6. Encephalopathy, may have been made worse by toxic metabolic causes due to his infection. RECOMMENDATIONS: 1. Fluid resuscitation with sodium chloride or lactated Ringer's. 2. Follow serial lactates. 3. Broad-spectrum antibiotics as per ID. 4. May consider renal ultrasound to ensure that he has not developed an emphysematous pyelo or nadira nephric abscess. 5. Levophed drip to maintain MAP of greater or equal to 65. 6. We will place a central line for IV resuscitation and pressors. May also use to monitor CVP. Dictated By: LEONIE ROACH MD NK/KOREY Conf#: [id number] DID#: [id number] CC: UCHE RIVERO MD; YOANDY DIXON MD;*EndCC*
[2016-12-03] MEDS: LEVOFLOXACIN 500MG/D5W (PMX) 100 ML IVPB SCH (18:11)
--- NOTE | 2016-12-03 19:58 | PN ---
DATE: 12/03/2016 SUBJECTIVE: Urinary incontinence, leakage of urine around the suprapubic tube and urinary tract inf ection. OBJECTIVE: The patient was transferred to the ICU because of hypotension and is on norepinephrine d rip. However, he is awake, and for the first time he is talking, and he talked to me, and now he te lls me that initially he had the suprapubic tube inserted in 04/2016, and last time it was changed w as done at [facility] around 09/21. The initial catheter that he had was put in April or at [facility]. He does not know the name of the doctor who did it. He knows that his medical doctor is an [place] doctor. OBJECTIVE: VITAL SIGNS: His temperature is 97.9, the pulse is 87, respirations 16, blood pressure 164/132. ABDOMEN: Soft. He does have leakage around the suprapubic tube, and the suprapubic tube is drainin g clear urine. LABORATORY DATA: His CBC shows a white count of 11.1, hemoglobin 12.6, hematocrit 38.0. BUN is 43, creatinine 0.76. Electrolytes are normal. IMAGING: The x-rays of the abdomen: The patient did not show any stones over the bladder, over the kidney, but however, the technique is not that good. IMPRESSION: Urinary tract infection with acinetobacter and enterococcus. The patient does have a s uprapubic tube that needs to be changed, but for us to be able to change it, we need to know what ki nd of catheter was used and if it needs a stylet because it does not appear to be a regular Potter ca theter and most likely may have been changed by the radiologist at [facility]. Will try to get his record from these places in the morning. Dictated By: NAJMA SR/KOREY Conf#: [id number] DID#: [id number]
[2016-12-03] MEDS: INSULIN GLARGINE [LANtus] 3 ML PEN SC SCH (20:15)
[2016-12-03] MEDS: QUETIAPINE 25 MG TAB PO SCH (20:26)
[2016-12-04] VITALS (94 sets, daily range): BP systolic 63–185; BP diastolic 40–89; PULSE 67–141; RESP 9–26
[2016-12-04] MEDS: SOD CHLORIDE 0.9% 1,000 ML IV SCH ×3 (01:00→14:20)
[2016-12-04] MEDS: ACCUCHECK XX SCH (01:24)
[2016-12-04 04:58] LABS: BASOPHIL # 0.1 10^3/ul (0.0-0.1); EOSINOPHILS # 0.8 10^3/ul (0.0-0.5); HEMATOCRIT 33.3 % (42.0-52.0); HEMOGLOBIN 10.9 g/dl (14.0-18.0); LYMPHOCYTES # 4.7 10^3/ul (0.8-2.9); LYMPHOCYTES % 40.4 % (15.0-51.0); MEAN CORPUSCULAR HEMOGLOBIN 25.3 pg (29.0-33.0); MEAN CORPUSCULAR HGB CONC 32.8 g/dl (32.0-37.0); MEAN CORPUSCULAR VOLUME 77.2 fl (82.0-101.0); MEAN PLATELET VOLUME 7.5 fl (7.4-10.4); MONOCYTE # 0.7 10^3/ul (0.3-0.9); MONOCYTES % 5.6 % (0.0-11.0); NEUTROPHIL # 5.4 10^3/ul (1.6-7.5); PLATELET COUNT 464 10^3/UL (140-440); RED BLOOD COUNT 4.32 10^6/ul (4.70-6.10); RED CELL DISTRIBUTION WIDTH 19.1 % (11.5-14.5); UNCORRECTED WBC 11.7 10^3/ul (4.8-10.8); WHITE BLOOD COUNT 11.7 10^3/ul (4.8-10.8)
[2016-12-04 05:03] LABS: CONDITION 1; LH ANALYZER COMMENTS 1
[2016-12-04 05:04] LABS: POTASSIUM 4.1 mmol/L (3.5-5.1)
[2016-12-04 05:07] LABS: CREATININE 0.79 mg/dl (0.61-1.24)
[2016-12-04 05:08] LABS: CALCIUM 8.5 mg/dl (8.4-10.2)
[2016-12-04 05:32] LABS: AADO2 Arterial 45.2 mmHg (7.0-24.0); Allen Test ACCEPTAB; Arterial Base Excess -1.5 mmol/L (-3.0-3); Arterial COHb 0.5 % (0.0-3.0); Arterial Fraction of Oxyhgb 95.9 % (93.0-99.0); Arterial HCO3 24.2 mmol/L (22.0-26.0); Arterial MetHb 0.1 % (0.0-1.5); Arterial Total Hemglobin 13.1 g/dl (12.0-18.0); MODE NASAL CANNULA
[2016-12-04] MEDS: INSULIN ASPART [NOVOLOG] 3 ML PEN SC SCH ×7 (07:55→20:31)
[2016-12-04] MEDS: metFORMIN 500 MG TAB PO SCH ×2 (07:56→17:13)
[2016-12-04] MEDS: ZINC SULFATE 220 MG CAP PO SCH (08:15)
[2016-12-04] MEDS: FAMOTIDINE 20 MG TAB PO SCH ×2 (08:15→20:27)
[2016-12-04] MEDS: MULTIVITAMINS/MINERALS TAB PO SCH (08:15)
[2016-12-04] MEDS: FERROUS SULFATE (EC) 325 MG TAB PO SCH (08:15)
[2016-12-04] MEDS: ASCORBIC ACID 500 MG TAB PO SCH (08:15)
[2016-12-04] MEDS: FISH OIL 1,000 MG CAP PO SCH (08:16)
[2016-12-04] MEDS: BACLOFEN 10 MG TAB PO SCH ×3 (08:16→20:27)
[2016-12-04] MEDS: ENOXAPARIN 40 MG/0.4 ML SYG SC SCH (08:17)
[2016-12-04] MEDS: AMLODIPINE 10 MG TAB PO SCH (08:30)
[2016-12-04] MEDS: NYSTATIN 30 GM POWDER BTL TOP SCH ×2 (08:30→20:37)
[2016-12-04] MEDS: BISACODYL 10 MG SUPP PR SCH (08:30)
[2016-12-04] MEDS: COLLAGENASE 30 GM TUBE TOP SCH (08:31)
--- NOTE | 2016-12-04 11:45 | PN ---
DATE: 12/04/2016 SUBJECTIVE: Patient, Ash, eyes open and remains stable, continues on Levophed for hemodynamic s upport. VITAL SIGNS: Temperature 98, pulse 80, blood pressure 100/58, O2 saturation 96% on 2 liters. NECK: Supple. No JVD or lymphadenopathy. CARDIAC: S1, S2, no added sounds or murmurs. CHEST: Diminished air entry bilaterally. ABDOMEN: Soft, nontender. No guarding or rebound. EXTREMITIES: No cyanosis, clubbing, edema. NEUROLOGIC: Generalized weakness. LABORATORY DATA: White count 11.7, hemoglobin 10.9, platelets of 464. Chemistry within normal limi ts. Lactic acid 1.6. ABG: pH 7.35, pCO2 of 44, PaO2 94. IMAGING: Chest x-ray shows no acute pulmonary process. IMPRESSION AND PLAN: 1. Urinary tract infection with septic shock. 2. History of quadriplegia. 3. Chronic kidney disease. Patient will require: 1. Continued aggressive volume resuscitation. 2. Continue Levophed keep MAP over 65. 3. Central line care. 4. DVT and GI prophylaxis. CRITICAL CARE TIME ON THIS PATIENT: 40 minutes. Dictated By: YOANDY RIBEIRO/KOREY Conf#: [id number] DID#: [id number]
--- NOTE | 2016-12-04 14:18 | PN ---
Date/Time of Note Date/Time of Note DATE: 12/04/16 TIME: 14:13 Assessment/Plan VTE Prophylaxis VTE Prophylaxis Intervention: LMWH Assessment/Plan Chief Complaint/Hosp Course 1.Septic Shock - will start levophed. IV antibiotics. culture shows Acinobacter Baumanii/enterococcus spp - appreciate ID c/s 2. Leukocytosis 11/23 to #1 - there is a sacral ulcer noted - appreciate wound care - worsening 3. Malfunctioning suprapubic catheter - appreciate urology recs - needs films from prior placement in order to determine how to remove and replace - awaiting records from [facility] 4. Type II DM - hgba1c 8.4 - diabetic consult, ISS, c/w metformin - added lantus and novolog 5. CKD - stage I/II - will continue with renally adjusting medications, avoid nephrotoxins 6. Anemia - microcytic - occult blood, transfuse if hgb < 7.5 g/dL - iron deficient supplementation started 7. Quadriplegia - continue with pain meds, PT eval/tx 8. Depression - continue with SSRI 9. Hypomagnesemia - replete 10. Acute encephalopathy - behavior changes - malingering - start seroquel 25 mg po qhs 11. GI ppx - pepcid po 12. DVT ppx - lovenox dispo - f/u urology, as per clinical course, f/u labs, retrieve the records Problems: Subjective 24 Hr Interval Summary Constitutional: no complaints Exam/Review of Systems Vital Signs Vitals Vital Signs Date Time Temp Pulse Resp B/P Pulse Ox O2 Delivery O2 Flow Rate FiO2 12/04/16 13:15 95 24 63/44 99 Nasal Cannula 12/04/16 12:00 98.6 12/04/16 08:00 2.0 Intake and Output 12/03/16 12/03/16 12/04/16 15:00 23:00 07:00 Intake Total 2583.74 ml 1089.34 ml 689.22 ml Output Total 100 ml 140 ml 170 ml Balance 2483.74 ml 949.34 ml 519.22 ml Exam Constitutional: alert Respiratory: clear to auscultation Cardiovascular: regular rate and rhythm Gastrointestinal: soft, No distended Musculoskeletal: nl extremities to inspection Results Result Diagram: 12/04/1642412/04/16424 Results 24 hrs Laboratory Tests Test 2/12/17 16:59 12/03/16 20:12 12/04/16 01:18 12/04/16 04:25 Bedside Glucose 217 231 H 209 Anion Gap 16 Basophils # 0.1 Basophils % 1.0 Blood Morphology Comment Blood Urea Nitrogen 36 H Calcium Level 8.5 Carbon Dioxide Level 25 Chloride Level 110 Creatinine 0.79 Eosinophils # 0.8 H Eosinophils % 7.0 Glucose Level 219 Hematocrit 33.3 L Hemoglobin 10.9 L Lactic Acid Level 1.6 Lymphocytes # 4.7 H Lymphocytes % 40.4 Mean Corpuscular Hemoglobin 25.3 L Mean Corpuscular Hemoglobin Concent 32.8 Mean Corpuscular Volume 77.2 L Mean Platelet Volume 7.5 Monocytes # 0.7 Monocytes % 5.6 Neutrophils # 5.4 Neutrophils % 46.0 Nucleated Red Blood Cells # 0.0 Nucleated Red Blood Cells % 0.0 Platelet Count 464 H Potassium Level 4.1 Prealbumin 25.6 Red Blood Count 4.32 L Red Cell Distribution Width 19.1 H Sodium Level 147 H White Blood Count 11.7 H Test 12/04/16 05:00 12/04/16 07:54 12/04/16 11:07 Arterial Blood HCO3 24.2 Arterial Blood Base Excess -1.5 Arterial Blood Oxygen Saturation 96.5 Colt Test ACCEPTAB Arterial Blood Gas Puncture Site Right Radial Arterial Blood Carboxyhemoglobin 0.5 Arterial Blood Date Drawn 12/04/2016 5:27:27 AM Arterial Blood Methemoglobin 0.1 Arterial Blood pCO2 (Temp correct) 44.4 Arterial Blood pH (Temp corrected) 7.354 Arterial Blood pO2 (Temp corrected) 94.8 Blood Gas A-a O2 Differential 45.2 H Blood Gas Modality NASAL CANNULA Blood Gas Notified Time 12/04/2016 5:32:01 AM Blood Gas Notified Whom BR Blood Gas Specimen Source Blood arterial Blood Gas Temperature 37.0 FiO2 27.0 Oxyhemoglobin Percent 95.9 Total Hemoglobin 13.1 Bedside Glucose 255 H 230 H Medications Medications Current Medications Ondansetron HCl (Zofran Inj) 4 mg Q6H PRN IV NAUSEA AND/OR VOMITING; Start 11/28 at 18:30 Acetaminophen (Tylenol Tab) 650 mg Q6H PRN PO PAIN LEVEL 1-3 OR FEVER; Start at 18:30 Acetaminophen/ Hydrocodone Bitart ([place] (5/325)) 1 tab Q6H PRN PO MODERATE PAIN LEVEL 4-6; Start 11/28/16 at 18:30 Morphine Sulfate (morphine) 2 mg Q4H PRN IV SEVERE PAIN LEVEL 7-10; Start at 18:30 Docusate Sodium (Colace) 100 mg Q12H PRN PO CONSTIPATION; Start 11/28/16 at 18: 30 Enoxaparin Sodium (Lovenox) 40 mg DAILY SC Last administered on 12/04/16 08:17 ; Admin Dose 40 MG; Start 11/29/16 at 09:00 Amlodipine Besylate (Norvasc) 10 mg DAILY PO Last administered on 11/29/16 11: 05; Admin Dose 10 MG; Start 11/29/16 at 09:00 Ascorbic Acid (Vitamin C) 500 mg DAILY PO Last administered on 12/04/16 08:15 ; Admin Dose 500 MG; Start 11/29/16 at 09:00 Baclofen (Lioresal) 20 mg TID PO Last administered on 12/04/16 12:34; Admin Dose 20 MG; Start 11/28/16 at 21:00 Bisacodyl (Dulcolax Supp) 10 mg DAILY FL Last administered on 12/03/16 09:05; Admin Dose 10 MG; Start 11/29/16 at 09:00 Ferrous Sulfate (Ferrous Sulfate (Ec)) 325 mg DAILY PO Last administered on 08:15; Admin Dose 325 MG; Start 11/29/16 at 09:00 Magnesium Hydroxide (Milk Of Mag) 30 ml QHS PRN PO CONSTIPATION; Start 11/28/16 at 18:30 Zinc Sulfate (Zinc Sulfate) 220 mg DAILY PO Last administered on 12/04/16 08: 15; Admin Dose 220 MG; Start 11/29/16 at 09:00 Multivitamins/ Minerals (Theragran-M) 1 tab DAILY PO Last administered on 08:15; Admin Dose 1 TAB; Start 11/29/16 at 09:00 Fish Oil 1000 mg 1,000 mg DAILY PO Last administered on 12/04/16 08:16; Admin Dose 1,000 MG; Start 11/29/16 at 09:00 Levofloxacin/ Dextrose (Levaquin 500mg/ D5W 100 ml (Pmx)) 100 ml @ 100 mls/hr Q24H IVPB Last administered on 12/03/16 18:11; Admin Dose 100 MLS/HR; Start at 18:30 Miscellaneous Information 1 ea NOTE XX ; Start 11/28/16 at 18:30 Glucose (Glutose) 15 gm Q15M PRN PO DECREASED GLUCOSE; Start 11/28/16 at 18:30 Glucose (Glutose) 22.5 gm Q15M PRN PO DECREASED GLUCOSE; Start 11/28/16 at 18:30 Dextrose (D50w Syringe) 25 ml Q15M PRN IV DECREASED GLUCOSE; Start 11/28/16 at 18:30 Dextrose (D50w Syringe) 50 ml Q15M PRN IV DECREASED GLUCOSE; Start 11/28/16 at 18:30 Glucagon (Glucagen) 1 mg Q15M PRN IM DECREASED GLUCOSE; Start 11/28/16 at 18:30 Glucose (Glutose) 15 gm Q15M PRN BUCCAL DECREASED GLUCOSE; Start 11/28/16 at 18: 30 Nystatin (Nystatin Powder) 1 applic BID TOP Last administered on 12/04/16 08: 30; Admin Dose 1 APPLIC; Start 11/28/16 at 21:00 Insulin Glargine (Lantus) 15 unit DAILY@20 SC Last administered on 12/03/16 20 :15; Admin Dose 15 UNIT; Start 11/29/16 at 20:00 Diagnostic Test (Pha) (Accucheck) 1 ea 02 XX ; Start 11/30/16 at 02:00 Collagenase (Santyl) 1 applic DAILY TOP Last administered on 12/04/16 08:31; Admin Dose 1 APPLIC; Start 11/29/16 at 14:30 Famotidine (Pepcid) 20 mg BID PO Last administered on 12/04/16 08:15; Admin Dose 20 MG; Start 11/30/16 at 21:00 Quetiapine Fumarate 25 mg 25 mg QHS PO Last administered on 12/03/16 20:26; Admin Dose 25 MG; Start 12/01/16 at 21:00 Sodium Chloride 1,000 ml @ 75 mls/hr [id number] IV Last administered on 10:18; Admin Dose 75 MLS/HR; Start 12/02/16 at 09:00 Norepinephrine/ Dextrose (Levophed/D5W) 500 ml @ 0 mls/hr TITRATE IV Last administered on 12/04/16t 11:19; Admin Dose 9.37 MLS/HR; Start 12/03/16 at 23:00 JOSÉ ANTONIO ANDRE Dec 04, 2016 14:18
[2016-12-04] MEDS ORDERED: VANCOMYCIN IV PER PHARMACY XX SCH (16:00)
[2016-12-04] MEDS ORDERED: VANCOMYCIN 1.5 GM in SOD CHLORIDE 0.9% 250 ML IVPB SCH (17:00)
--- NOTE | 2016-12-04 18:18 | CONS ---
DATE OF ADMISSION: 11/28/2016 DATE OF CONSULTATION: 12/04/2016 TYPE OF CONSULTATION: Infectious disease. REASON FOR CONSULTATION: Antibiotic management. HISTORY OF PRESENT ILLNESS: Ash Alcantar is a 61-year-old male who comes in with numerou s problems and is being seen for a urinary tract infection. PAST PROBLEMS INCLUDE: 1. Quadriplegia. 2. Adult-onset diabetes mellitus. 3. Depression. 4. Chronic renal disease. 5. Suprapubic catheter, which is now leaking foul-smelling urine. The catheter has been leaking fo r the last 2 weeks. In the emergency room, received ciprofloxacin. PAST MEDICAL HISTORY: As noted. SURGICAL HISTORY: He has a suprapubic catheter. FAMILY HISTORY: Noncontributory. SOCIAL HISTORY: He does not smoke, drink, or abuse drugs. ALLERGIES: NONE TO ____, SULFA, OR FOODS. MEDICATIONS: Per chart. REVIEW OF SYSTEMS: As per HPI. PHYSICAL EXAMINATION: GENERAL: The patient is a well-developed, well-nourished male who is alert, responsive, in no acute distress. VITAL SIGNS: Stable. He is afebrile. SKIN: Without generalized rash. HEENT: Within normal limits. NECK: Supple. LYMPH NODES: None palpable. CHEST: Decreased breath sounds at the bases. HEART: Without murmur or gallop. ABDOMEN: Soft, nontender without organosplenomegaly or masses. He has a suprapubic catheter with s urrounding erythema and a foul smell. EXTREMITIES: Contractured. RECTAL AND GENITAL: Deferred. NEUROLOGIC: The patient is quadriplegic. ANCILLARY LABORATORY DATA: On admission, his white count was 13.6, H and H of 12.9 and 39.1, platel et count 515,000. BUN and creatinine are 24/0.85. HOSPITAL COURSE: The patient was seen in consultation by Dr. Hartmann, urology. According to Dr. Dean quinn. HE IS ALLERGIC TO PENICILLIN, KEFLEX, MEROPENEM, SULFAMETHOXAZOLE, AND TRIMETHOPRIM. He hillary nged the suprapubic catheter. He also will get a KUB to see the kidney stones if big, and if there are any bladder stones. MICROBIOLOGY: Urine grew out Acinetobacter baumannii and enterococcus species. The patient is curr ently on Levaquin. The patient was seen by Dr. Mckeon. He was transferred to the ICU on the for hypotension and need for resuscitation and initiation of vasopressors. The patient had septic shock, likely secondary to urosepsis, malfunctioning suprapubic, encephalopat hy made worse by a toxic metabolic causes. He is on Levophed. Dr. Hartmann comments that the suprap ubic tube needs to be changed, but we do not know what kind of catheter he has at this point. The p belia is currently just on Levaquin. We are going to switch him over to colistin and probably vanc omycin depending on the sensitivity of the organisms. The baumannii is intermediate to Levaquin. T he enterococcus is sensitive to ampicillin and also to vancomycin. ACCORDING TO THE CHART, HE IS AL LERGIC TO PENICILLIN, CEPHALOSPORINS, MEROPENEM, SULFAMETHOXAZOLE, AND TRIMETHOPRIM SULFA. His whit e count today is 11.7. His BUN and creatinine is 36/0.79. PLAN: I am going to put him on vancomycin, pharmacy to dose, and Colistin 75 g IV piggyback q.12. We will have to watch his renal function very carefully. I will dictate my findings to the hospital ist and to the aforementioned consultants. Of note, is the fact that he had a right internal jugula r central venous catheter placed on the for installation of medications. We may want to repeat a UA and C and S as well. Dictated By: RUSTY PIRES MD, JD/NTS Conf#: [id number] DID#: [id number] CC: UCHE GLASS MD;*EndCC*
[2016-12-04] MEDS: QUETIAPINE 25 MG TAB PO SCH (20:27)
[2016-12-04] MEDS: COLISTIMETHATE 75 MG in SOD CHLORIDE 0.9% 100 ML IVPB SCH (20:27)
[2016-12-04] MEDS: INSULIN GLARGINE [LANtus] 3 ML PEN SC SCH (20:30)
[2016-12-05] VITALS (90 sets, daily range): BP systolic 77–164; BP diastolic 45–88; PULSE 65–110; RESP 9–34
[2016-12-05] MEDS: ACCUCHECK XX SCH (02:23)
[2016-12-05 04:43] LABS: BASOPHIL # 0.1 10^3/ul (0.0-0.1); BASOPHILS % 0.9 % (0.0-2.0); EOSINOPHILS # 1.7 10^3/ul (0.0-0.5); EOSINOPHILS % 11.1 % (0.0-7.0); HEMATOCRIT 33.3 % (42.0-52.0); HEMOGLOBIN 10.9 g/dl (14.0-18.0); LYMPHOCYTES # 5.2 10^3/ul (0.8-2.9); LYMPHOCYTES % 35.2 % (15.0-51.0); MEAN CORPUSCULAR HEMOGLOBIN 25.4 pg (29.0-33.0); MEAN CORPUSCULAR HGB CONC 32.7 g/dl (32.0-37.0); MEAN CORPUSCULAR VOLUME 77.8 fl (82.0-101.0); MEAN PLATELET VOLUME 7.2 fl (7.4-10.4); MONOCYTE # 1.2 10^3/ul (0.3-0.9); MONOCYTES % 8.2 % (0.0-11.0); NEUTROPHIL # 6.7 10^3/ul (1.6-7.5); NEUTROPHILS % 44.6 % (39.0-77.0); PLATELET COUNT 454 10^3/UL (140-440); RED BLOOD COUNT 4.28 10^6/ul (4.70-6.10); RED CELL DISTRIBUTION WIDTH 19.2 % (11.5-14.5); UNCORRECTED WBC 14.9 10^3/ul (4.8-10.8); WHITE BLOOD COUNT 14.9 10^3/ul (4.8-10.8)
[2016-12-05 04:47] LABS: POTASSIUM 4.3 mmol/L (3.5-5.1)
[2016-12-05 04:49] LABS: CREATININE 0.55 mg/dl (0.61-1.24)
[2016-12-05 04:50] LABS: CALCIUM 8.6 mg/dl (8.4-10.2); CONDITION 1; LH ANALYZER COMMENTS 1; MAGNESIUM 1.4 mg/dl (1.7-2.5); PHOSPHORUS 2.9 mg/dl (2.5-4.9)
[2016-12-05] MEDS ORDERED: MAGNESIUM SULFATE 3 GM in SOD CHLORIDE 0.9% 100 ML IVPB ONE (05:30)
[2016-12-05] MEDS: SOD CHLORIDE 0.9% 1,000 ML IV SCH ×2 (06:03→17:00)
[2016-12-05] MEDS: metFORMIN 500 MG TAB PO SCH ×2 (08:47→18:26)
[2016-12-05] MEDS: BACLOFEN 10 MG TAB PO SCH ×3 (08:48→20:43)
[2016-12-05] MEDS: FISH OIL 1,000 MG CAP PO SCH (08:48)
[2016-12-05] MEDS: FAMOTIDINE 20 MG TAB PO SCH ×2 (08:48→20:43)
[2016-12-05] MEDS: AMLODIPINE 10 MG TAB PO SCH (08:48)
[2016-12-05] MEDS: ASCORBIC ACID 500 MG TAB PO SCH (08:48)
[2016-12-05] MEDS: ZINC SULFATE 220 MG CAP PO SCH (08:48)
[2016-12-05] MEDS: MULTIVITAMINS/MINERALS TAB PO SCH (08:48)
[2016-12-05] MEDS: FERROUS SULFATE (EC) 325 MG TAB PO SCH (08:48)
[2016-12-05] MEDS: NYSTATIN 30 GM POWDER BTL TOP SCH ×2 (08:49→20:44)
[2016-12-05] MEDS: BISACODYL 10 MG SUPP PR SCH ×2 (08:49→09:00)
[2016-12-05] MEDS: COLLAGENASE 30 GM TUBE TOP SCH (08:49)
[2016-12-05] MEDS: INSULIN ASPART [NOVOLOG] 3 ML PEN SC SCH ×7 (08:50→20:47)
[2016-12-05] MEDS: ENOXAPARIN 40 MG/0.4 ML SYG SC SCH (08:52)
[2016-12-05] MEDS: COLISTIMETHATE 75 MG in SOD CHLORIDE 0.9% 100 ML IVPB SCH ×2 (09:32→20:43)
[2016-12-05] MEDS: VANCOMYCIN 1 GM in NS 250 ML IVPB SCH ×2 (09:33→20:43)
--- NOTE | 2016-12-05 11:26 | PN ---
DATE: 12/05/2016 SUBJECTIVE: No acute changes overnight. The patient is lying comfortably in bed. He is on Levophed drip, and in no distress. VITAL SIGNS: Temperature 98.4, pulse 73, respirations 16, blood pressure 111/72 , saturation 95 on nasal cannula. WBC 14.9, H and H 10.9 and 33.3, platelets 454,000, BUN 33, creatinine 0.55. MICROBIOLOGY: Urine culture grew Acinetobacter baumannii and Enterococcus species. ANTIMICROBIALS: The patient was started yesterday on vancomycin and IV Colistin. INDWELLINGS: Right IJ triple-lumen catheter. PHYSICAL EXAMINATION: GENERAL: This is an ill-appearing, well-developed elderly man who is lying comfortably in bed. HEENT: Head atraumatic, normocephalic. Sclerae anicteric. Buccal mucosa dry. NECK: Supple. CHEST: Rise symmetrical. Breath sounds diminished to bases. HEART: S1, S2. ABDOMEN: Soft. Bowel tones present. EXTREMITIES: Without cyanosis. ASSESSMENT: 1. Severe sepsis with shock. 2. Multidrug resistant polymicrobial urinary tract infection. 3. Quadriplegia. 4. Diabetes. 5. Chronic kidney disease. PLAN: The patient remains unchanged. He is on Levophed. He is being followed by multiple consultants. Urology is on case, pending suprapubic catheter change. We will monitor renal function closely. Continue anti-aspiration measures. Dictated By: SESAR WEINSTEIN O[employer] JO[employer] DAY WORKER for RUSTY MILLARD/KOREY Conf#: [id number] DID#: [id number] [facility]
--- NOTE | 2016-12-05 11:51 | PN ---
DATE: 12/05/2016 SUBJECTIVE: Ortiz remains stable, no new events. Continues nasal cannula oxygen; however, still r equiring low-dose vasopressor support. In addition, he declined nocturnal noninvasive positive pres sure ventilation. PHYSICAL EXAMINATION: VITAL SIGNS: Temperature 98, pulse 73, blood pressure 111/73, O2 saturation 96% on 3 L nasal cannul a. NECK: Supple. No JVD or lymphadenopathy. CARDIAC: S1, S2, no added sounds or murmurs. CHEST: Diminished air entry both lung bases. ABDOMEN: Soft, nontender. No guarding or rebound. EXTREMITIES: No cyanosis, clubbing. Edema +1. NEUROLOGIC: Generalized weakness. LABORATORIES: White count 14.9, hemoglobin 10.9, platelets of 454. BUN 33, creatinine 0.55, magnes ium was 1.5. IMAGING: Chest x-ray as of 2 days ago showed no acute disease. IMPRESSION AND PLAN: 1. Septic shock. 2. Urinary tract infection with suprapubic catheter. 3. History of quadriplegia. 4. History of depression. 5. Hypomagnesemia. PLAN: 1. Continue supplemental O2 as needed. 2. Continue vasopressor support. 3. Check random cortisol for renal insufficiency. 4. Continue feeding as tolerated. 5. DVT and GI prophylaxis. 6. Urology recommendations regarding suprapubic catheter. Dictated By: YOANDY RIBEIRO/KOREY Conf#: [id number] DID#: [id number]
--- NOTE | 2016-12-05 14:12 | PN ---
Date/Time of Note Date/Time of Note DATE: 12/05/16 TIME: 14:12 Assessment/Plan VTE Prophylaxis VTE Prophylaxis Intervention: LMWH Assessment/Plan Chief Complaint/Hosp Course 1.Septic Shock - cont levophed. IV antibiotics. culture shows Acinobacter Baumanii/enterococcus spp - appreciate ID c/s 2. Leukocytosis 11/23 to #1 - there is a sacral ulcer noted - appreciate wound care - worsening 3. Malfunctioning suprapubic catheter - appreciate urology recs - needs films from prior placement in order to determine how to remove and replace - awaiting records from [facility] 4. Type II DM - hgba1c 8.4 - diabetic consult, ISS, c/w metformin - added lantus and novolog 5. CKD - stage I/II - will continue with renally adjusting medications, avoid nephrotoxins 6. Anemia - microcytic - occult blood, transfuse if hgb < 7.5 g/dL - iron deficient supplementation started 7. Quadriplegia - continue with pain meds, PT eval/tx 8. Depression - continue with SSRI 9. Hypomagnesemia - replete 10. Acute encephalopathy - behavior changes - malingering - start seroquel 25 mg po qhs 11. GI ppx - pepcid po 12. DVT ppx - lovenox dispo - f/u urology, as per clinical course, f/u labs, retrieve the records Problems: Subjective 24 Hr Interval Summary Constitutional: disoriented Exam/Review of Systems Vital Signs Vitals Vital Signs Date Time Temp Pulse Resp B/P Pulse Ox O2 Delivery O2 Flow Rate FiO2 12/05/16 13:30 83 19 100/52 99 12/05/16 13:00 Nasal Cannula 3.0 12/05/16 12:00 98.2 12/04/16 23:00 30 Intake and Output 12/04/16 12/04/16 12/05/16 15:00 23:00 07:00 Intake Total 315 ml 780.59 ml 674.96 ml Output Total 200 ml 215 ml 345 ml Balance 115 ml 565.59 ml 329.96 ml Exam Psych: confusion Respiratory: clear to auscultation Cardiovascular: regular rate and rhythm Gastrointestinal: soft, No distended Musculoskeletal: nl extremities to inspection Results Result Diagram: 12/05/160 12/05/16 0400 Results 24 hrs Laboratory Tests Test 12/04/16 17:01 12/04/16 20:29 12/05/16 02:15 12/05/16 04:00 Bedside Glucose 170 217 188 Anion Gap 13 Basophils # 0.1 Basophils % 0.9 Blood Morphology Comment Blood Urea Nitrogen 33 H Calcium Level 8.6 Carbon Dioxide Level 27 Chloride Level 108 Creatinine 0.55 L Eosinophils # 1.7 H Eosinophils % 11.1 H Glucose Level 173 Hematocrit 33.3 L Hemoglobin 10.9 L Lymphocytes # 5.2 H Lymphocytes % 35.2 Magnesium Level 1.4 L Mean Corpuscular Hemoglobin 25.4 L Mean Corpuscular Hemoglobin Concent 32.7 Mean Corpuscular Volume 77.8 L Mean Platelet Volume 7.2 L Monocytes # 1.2 H Monocytes % 8.2 Neutrophils # 6.7 Neutrophils % 44.6 Nucleated Red Blood Cells # 0.0 Nucleated Red Blood Cells % 0.0 Phosphorus Level 2.9 Platelet Count 454 H Potassium Level 4.3 Red Blood Count 4.28 L Red Cell Distribution Width 19.2 H Sodium Level 144 White Blood Count 14.9 #H Test 12/05/16 07:45 12/05/16 11:59 Bedside Glucose 158 174 Medications Medications Current Medications Ondansetron HCl (Zofran Inj) 4 mg Q6H PRN IV NAUSEA AND/OR VOMITING; Start 11/28 at 18:30 Acetaminophen (Tylenol Tab) 650 mg Q6H PRN PO PAIN LEVEL 1-3 OR FEVER; Start at 18:30 Acetaminophen/ Hydrocodone Bitart ([place] (5/325)) 1 tab Q6H PRN PO MODERATE PAIN LEVEL 4-6; Start 11/28/16 at 18:30 Morphine Sulfate (morphine) 2 mg Q4H PRN IV SEVERE PAIN LEVEL 7-10; Start at 18:30 Docusate Sodium (Colace) 100 mg Q12H PRN PO CONSTIPATION; Start 11/28/16 at 18: 30 Enoxaparin Sodium (Lovenox) 40 mg DAILY SC Last administered on 12/05/16 08:52 ; Admin Dose 40 MG; Start 11/29/16 at 09:00 Amlodipine Besylate (Norvasc) 10 mg DAILY PO Last administered on 11/29/16 11: 05; Admin Dose 10 MG; Start 11/29/16 at 09:00 Ascorbic Acid (Vitamin C) 500 mg DAILY PO Last administered on 12/05/16 08:48 ; Admin Dose 500 MG; Start 11/29/16 at 09:00 Baclofen (Lioresal) 20 mg TID PO Last administered on 12/05/16 12:03; Admin Dose 20 MG; Start 11/28/16 at 21:00 Bisacodyl (Dulcolax Supp) 10 mg DAILY MT Last administered on 12/05/16 08:49; Admin Dose 10 MG; Start 11/29/16 at 09:00 Ferrous Sulfate (Ferrous Sulfate (Ec)) 325 mg DAILY PO Last administered on 08:48; Admin Dose 325 MG; Start 11/29/16 at 09:00 Magnesium Hydroxide (Milk Of Mag) 30 ml QHS PRN PO CONSTIPATION; Start 11/28/16 at 18:30 Zinc Sulfate (Zinc Sulfate) 220 mg DAILY PO Last administered on 12/05/16 08: 48; Admin Dose 220 MG; Start 11/29/16 at 09:00 Multivitamins/ Minerals (Theragran-M) 1 tab DAILY PO Last administered on 08:48; Admin Dose 1 TAB; Start 11/29/16 at 09:00 Fish Oil (Fish Oil) 1,000 mg DAILY PO Last administered on 12/05/16 08:48; Admin Dose 1,000 MG; Start 11/29/16 at 09:00 Miscellaneous Information 1 ea NOTE XX ; Start 11/28/16 at 18:30 Glucose (Glutose) 15 gm Q15M PRN PO DECREASED GLUCOSE; Start 11/28/16 at 18:30 Glucose (Glutose) 22.5 gm Q15M PRN PO DECREASED GLUCOSE; Start 11/28/16 at 18:30 Dextrose (D50w Syringe) 25 ml Q15M PRN IV DECREASED GLUCOSE; Start 11/28/16 at 18:30 Dextrose (D50w Syringe) 50 ml Q15M PRN IV DECREASED GLUCOSE; Start 11/28/16 at 18:30 Glucagon (Glucagen) 1 mg Q15M PRN IM DECREASED GLUCOSE; Start 11/28/16 at 18:30 Glucose (Glutose) 15 gm Q15M PRN BUCCAL DECREASED GLUCOSE; Start 11/28/16 at 18: 30 Nystatin (Nystatin Powder) 1 applic BID TOP Last administered on 12/05/16 08: 49; Admin Dose 1 APPLIC; Start 11/28/16 at 21:00 Diagnostic Test (Pha) (Accucheck) 1 ea 02 XX Last administered on 12/05/16 02: 23; Admin Dose 1 EA; Start 11/30/16 at 02:00 Collagenase (Santyl) 1 applic DAILY TOP Last administered on 12/05/16 08:49; Admin Dose 1 APPLIC; Start 11/29/16 at 14:30 Famotidine (Pepcid) 20 mg BID PO Last administered on 12/05/16 08:48; Admin Dose 20 MG; Start 11/30/16 at 21:00 Quetiapine Fumarate 25 mg 25 mg QHS PO Last administered on 12/04/16 20:27; Admin Dose 25 MG; Start 12/01/16 at 21:00 Sodium Chloride 1,000 ml @ 75 mls/hr [id number] IV Last administered on 06:03; Admin Dose 75 MLS/HR; Start 12/02/16 at 09:00 Norepinephrine 16 mg/Dextrose 500 ml @ 0 mls/hr TITRATE IV Last administered on 12/04/16 11:19; Admin Dose 9.37 MLS/HR; Start 12/03/16 at 23:00 Colistimethate Sodium 75 mg/ Sodium Chloride 100 ml @ 200 mls/hr Q12 IVPB Last administered on 12/05/16 09:32; Admin Dose 200 MLS/HR; Start 12/04/16 at 21:00 Vancomycin HCl (Vancocin) 250 ml @ 125 mls/hr Q12H IVPB Last administered on 09:33; Admin Dose 125 MLS/HR; Start 12/05/16 at 08:00 Insulin Glargine (Lantus) 20 unit DAILY@20 SC Last administered on 12/04/16 20 :30; Admin Dose 20 UNIT; Start 12/04/16 at 20:00 Miscellaneous Information (*Rx Drug Level Order Reminder*) 1 ONCE ONCE XX ; Start 12/06/16 at 07:00; Stop 12/06/16 at 07:01 JOSÉ ANTONIO ANDRE Dec 05, 2016 14:12
--- NOTE | 2016-12-05 19:01 | PN ---
DATE: 12/05/2016 SUBJECTIVE: Suprapubic tube that is not draining well. It has leakage around it. The patient hims elf is not able to give me more information as to who put the catheter. However, we did obtain the records from [facility], and apparently the suprapubic tube is a Stamey 14-Chinese suprapubi c Malecot. Therefore, to change it, I will need to use a stylet to straighten the Mal[place]ot and make it easier to remove. However, if it is calcified, this may be even more problem. OBJECTIVE: VITAL SIGNS: His temperature is 98.1, pulse is 81, respirations 27, blood pressure 114/66. ABDOMEN: Soft. He does have a suprapubic tube again that is draining some urine and leakage around it. LABORATORY DATA: CBC with a white count of 14.9, hemoglobin 10.9, hematocrit 33.3. BUN is 33, crea tinine 0.55. Electrolytes are normal. The urine culture: Gram-negative rods 100,000 colonies per mL. PLAN: Do a CT scan of the abdomen and pelvis without contrast to see if the suprapubic tube is calc ified since he has had it for quite a long time now and also try to see if we could get a Stamey tub e here where we could use a stylet to straighten up the Malecot and then try to remove it. If not, then we will have to pull the Malecot without straightening up the tip of the Malecot, and that may cause some bleeding. Dictated By: NAJMA SR/KOREY Conf#: [id number] DID#: [id number]
[2016-12-05] MEDS: QUETIAPINE 25 MG TAB PO SCH (20:42)
[2016-12-05] MEDS: INSULIN GLARGINE [LANtus] 3 ML PEN SC SCH (20:46)
[2016-12-06] VITALS (70 sets, daily range): BP systolic 83–202; BP diastolic 44–144; PULSE 68–117; RESP 11–27
[2016-12-06] MEDS: ACCUCHECK XX SCH (02:26)
[2016-12-06 05:27] LABS: BASOPHIL # 0.1 10^3/ul (0.0-0.1); BASOPHILS % 0.9 % (0.0-2.0); EOSINOPHILS # 1.9 10^3/ul (0.0-0.5); HEMATOCRIT 30.9 % (42.0-52.0); HEMOGLOBIN 10.2 g/dl (14.0-18.0); LYMPHOCYTES # 4.9 10^3/ul (0.8-2.9); LYMPHOCYTES % 33.1 % (15.0-51.0); MEAN CORPUSCULAR HEMOGLOBIN 25.6 pg (29.0-33.0); MEAN CORPUSCULAR VOLUME 77.8 fl (82.0-101.0); MEAN PLATELET VOLUME 7.3 fl (7.4-10.4); MONOCYTE # 1.1 10^3/ul (0.3-0.9); MONOCYTES % 7.4 % (0.0-11.0); NEUTROPHIL # 6.8 10^3/ul (1.6-7.5); NEUTROPHILS % 45.6 % (39.0-77.0); PLATELET COUNT 407 10^3/UL (140-440); RED BLOOD COUNT 3.98 10^6/ul (4.70-6.10); RED CELL DISTRIBUTION WIDTH 19.3 % (11.5-14.5); UNCORRECTED WBC 14.9 10^3/ul (4.8-10.8); WHITE BLOOD COUNT 14.9 10^3/ul (4.8-10.8)
[2016-12-06 05:30] LABS: CONDITION 1; LH ANALYZER COMMENTS 1
[2016-12-06 05:34] LABS: POTASSIUM 4.3 mmol/L (3.5-5.1)
[2016-12-06 05:36] LABS: CREATININE 0.63 mg/dl (0.61-1.24)
[2016-12-06 05:37] LABS: CALCIUM 8.6 mg/dl (8.4-10.2); MAGNESIUM 1.6 mg/dl (1.7-2.5); PHOSPHORUS 3.3 mg/dl (2.5-4.9)
[2016-12-06] MEDS: SOD CHLORIDE 0.9% 1,000 ML IV SCH (06:37)
--- NOTE | 2016-12-06 08:44 | CONS ---
Date/Time of Note Date/Time of Note DATE: 12/06/16 TIME: 08:36 Assessment/Plan Assessment/Plan Additional Assessment/Plan Assessment and recommendations; 1. Patient admitted with severe urosepsis due to Acinetobacter and enterococcus , currently doing very well. 2. On a tapering dose of Levophed. 3. Stable diabetes. Next Continue current treatment for now and wean off Levophed as tolerated. Continue current antibiotics. Consultation Date/Type/Reason Admit Date/Time Nov 28, 2016 at 17:58 Initial Consult Date Type of Consultation: Pulmonary/critical care 24 HR Interval Summary Free Text/Dictation Patient condition is improving gradually. He is completely awake and alert. Denies any shortness of breath. Any coughing, chest pain, wheezing. Denies any fever chills. She is refusing BiPAP. But maintaining adequate O2 saturations off it. Next General examination; rigid man currently in no distress. Exam/Review of Systems Vital Signs Vitals Vital Signs Date Time Temp Pulse Resp B/P Pulse Ox O2 Delivery O2 Flow Rate FiO2 12/06/16 06:45 83 141/89 12/06/16 06:15 24 Nasal Cannula 12/06/16 04:00 98.2 12/06/16 03:00 97 12/06/16 00:00 3.0 12/04/16 23:00 30 Intake and Output 12/05/16 12/05/16 12/06/16 15:00 23:00 07:00 Intake Total 1226.59 ml 999.35 ml 605.62 ml Output Total 630 ml 435 ml 285 ml Balance 596.59 ml 564.35 ml 320.62 ml Exam HEENT examination; supple neck, no JVD. No lymphadenopathy. Midline trachea. No thyromegaly. Pupils are midsize and reactive to light. Chest examination; clear to auscultation bilaterally. S1-S2 audible, no murmurs. Regular rhythm. Abdomen examination; soft, nontender. There is a suprapubic catheter in place. Bowel sounds audible. No organomegaly. Extremity examination; no peripheral edema. CARPENTER MINE examination; patient is awake alert. Has stable quadriplegia. Results Result Diagram: 12/06/16 0415 12/06/16 0415 Results 24 hrs Laboratory Tests Test 12/05/16 11:59 12/05/16 18:24 12/05/16 20:42 12/06/16 01:43 Bedside Glucose 174 201 223 H 233 H Test 12/06/16 04:15 12/06/16 06:45 Anion Gap 14 Basophils # 0.1 Basophils % 0.9 Blood Morphology Comment Blood Urea Nitrogen 28 H Calcium Level 8.6 Carbon Dioxide Level 28 Chloride Level 108 Creatinine 0.63 Eosinophils # 1.9 H Eosinophils % 13.0 H Glucose Level 185 Hematocrit 30.9 L Hemoglobin 10.2 L Lymphocytes # 4.9 H Lymphocytes % 33.1 Magnesium Level 1.6 L Mean Corpuscular Hemoglobin 25.6 L Mean Corpuscular Hemoglobin Concent 33.0 Mean Corpuscular Volume 77.8 L Mean Platelet Volume 7.3 L Monocytes # 1.1 H Monocytes % 7.4 Neutrophils # 6.8 Neutrophils % 45.6 Nucleated Red Blood Cells # 0.0 Nucleated Red Blood Cells % 0.0 Phosphorus Level 3.3 Platelet Count 407 Potassium Level 4.3 Red Blood Count 3.98 L Red Cell Distribution Width 19.3 H Sodium Level 146 H White Blood Count 14.9 H Vancomycin Level Trough 18.3 Medications Medications Current Medications Ondansetron HCl (Zofran Inj) 4 mg Q6H PRN IV NAUSEA AND/OR VOMITING; Start 11/28 at 18:30 Acetaminophen (Tylenol Tab) 650 mg Q6H PRN PO PAIN LEVEL 1-3 OR FEVER; Start at 18:30 Acetaminophen/ Hydrocodone Bitart ([place] (5/325)) 1 tab Q6H PRN PO MODERATE PAIN LEVEL 4-6; Start 11/28/16 at 18:30 Morphine Sulfate (morphine) 2 mg Q4H PRN IV SEVERE PAIN LEVEL 7-10; Start at 18:30 Docusate Sodium (Colace) 100 mg Q12H PRN PO CONSTIPATION; Start 11/28/16 at 18: 30 Enoxaparin Sodium (Lovenox) 40 mg DAILY SC Last administered on 12/05/16 08:52 ; Admin Dose 40 MG; Start 11/29/16 at 09:00 Amlodipine Besylate (Norvasc) 10 mg DAILY PO Last administered on 11/29/16 11: 05; Admin Dose 10 MG; Start 11/29/16 at 09:00 Ascorbic Acid (Vitamin C) 500 mg DAILY PO Last administered on 12/05/16 08:48 ; Admin Dose 500 MG; Start 11/29/16 at 09:00 Baclofen (Lioresal) 20 mg TID PO Last administered on 12/05/16 20:43; Admin Dose 20 MG; Start 11/28/16 at 21:00 Bisacodyl (Dulcolax Supp) 10 mg DAILY MI Last administered on 12/03/16 09:05; Admin Dose 10 MG; Start 11/29/16 at 09:00 Ferrous Sulfate (Ferrous Sulfate (Ec)) 325 mg DAILY PO Last administered on 08:48; Admin Dose 325 MG; Start 11/29/16 at 09:00 Magnesium Hydroxide (Milk Of Mag) 30 ml QHS PRN PO CONSTIPATION; Start 11/28/16 at 18:30 Zinc Sulfate (Zinc Sulfate) 220 mg DAILY PO Last administered on 12/05/16 08: 48; Admin Dose 220 MG; Start 11/29/16 at 09:00 Multivitamins/ Minerals (Theragran-M) 1 tab DAILY PO Last administered on 08:48; Admin Dose 1 TAB; Start 11/29/16 at 09:00 Fish Oil (Fish Oil) 1,000 mg DAILY PO Last administered on 12/05/16 08:48; Admin Dose 1,000 MG; Start 11/29/16 at 09:00 Miscellaneous Information 1 ea NOTE XX ; Start 11/28/16 at 18:30 Glucose (Glutose) 15 gm Q15M PRN PO DECREASED GLUCOSE; Start 11/28/16 at 18:30 Glucose (Glutose) 22.5 gm Q15M PRN PO DECREASED GLUCOSE; Start 11/28/16 at 18:30 Dextrose (D50w Syringe) 25 ml Q15M PRN IV DECREASED GLUCOSE; Start 11/28/16 at 18:30 Dextrose (D50w Syringe) 50 ml Q15M PRN IV DECREASED GLUCOSE; Start 11/28/16 at 18:30 Glucagon (Glucagen) 1 mg Q15M PRN IM DECREASED GLUCOSE; Start 11/28/16 at 18:30 Glucose (Glutose) 15 gm Q15M PRN BUCCAL DECREASED GLUCOSE; Start 11/28/16 at 18: 30 Nystatin (Nystatin Powder) 1 applic BID TOP Last administered on 12/05/16 20: 44; Admin Dose 1 APPLIC; Start 11/28/16 at 21:00 Diagnostic Test (Pha) (Accucheck) 1 ea 02 XX Last administered on 12/06/16 02: 26; Admin Dose 1 EA; Start 11/30/16 at 02:00 Collagenase (Santyl) 1 applic DAILY TOP Last administered on 12/05/16 08:49; Admin Dose 1 APPLIC; Start 11/29/16 at 14:30 Famotidine (Pepcid) 20 mg BID PO Last administered on 12/05/16 20:43; Admin Dose 20 MG; Start 11/30/16 at 21:00 Quetiapine Fumarate 25 mg 25 mg QHS PO Last administered on 12/05/16 20:42; Admin Dose 25 MG; Start 12/01/16 at 21:00 Sodium Chloride 1,000 ml @ 75 mls/hr [id number] IV Last administered on 06:37; Admin Dose 75 MLS/HR; Start 12/02/16 at 09:00 Norepinephrine 16 mg/Dextrose 500 ml @ 0 mls/hr TITRATE IV Last administered on 12/04/16 11:19; Admin Dose 9.37 MLS/HR; Start 12/03/16 at 23:00 Colistimethate Sodium/Sodium Chloride (Coly-Mycin/NS) 100 ml @ 200 mls/hr Q12 IVPB Last administered on 12/05/16 20:43; Admin Dose 200 MLS/HR; Start at 21:00 Insulin Glargine 20 unit 20 unit DAILY@20 SC Last administered on 12/05/16 20: 46; Admin Dose 20 UNIT; Start 12/04/16 at 20:00 Vancomycin HCl/ Sodium Chloride (Vancocin/NS) 150 ml @ 75 mls/hr Q12H IVPB ; Start 12/06/16 at 10:00 REGIS LUU Dec 06, 2016 08:44
[2016-12-06] MEDS: AMLODIPINE 10 MG TAB PO SCH (09:00)
[2016-12-06] MEDS: BISACODYL 10 MG SUPP PR SCH (09:00)
[2016-12-06] MEDS: COLISTIMETHATE 75 MG in SOD CHLORIDE 0.9% 100 ML IVPB SCH ×2 (09:41→20:37)
[2016-12-06] MEDS: ASCORBIC ACID 500 MG TAB PO SCH (09:45)
[2016-12-06] MEDS: ZINC SULFATE 220 MG CAP PO SCH (09:45)
[2016-12-06] MEDS: BACLOFEN 10 MG TAB PO SCH ×3 (09:45→20:37)
[2016-12-06] MEDS: FISH OIL 1,000 MG CAP PO SCH (09:45)
[2016-12-06] MEDS: metFORMIN 500 MG TAB PO SCH ×2 (09:46→17:08)
[2016-12-06] MEDS: FAMOTIDINE 20 MG TAB PO SCH ×2 (09:46→20:37)
[2016-12-06] MEDS: FERROUS SULFATE (EC) 325 MG TAB PO SCH (09:46)
[2016-12-06] MEDS: MULTIVITAMINS/MINERALS TAB PO SCH (09:46)
[2016-12-06] MEDS: COLLAGENASE 30 GM TUBE TOP SCH (09:47)
[2016-12-06] MEDS: NYSTATIN 30 GM POWDER BTL TOP SCH ×2 (09:47→20:41)
[2016-12-06] MEDS: INSULIN ASPART [NOVOLOG] 3 ML PEN SC SCH ×7 (09:48→20:40)
[2016-12-06] MEDS: ENOXAPARIN 40 MG/0.4 ML SYG SC SCH (09:49)
[2016-12-06] MEDS: VANCOMYCIN 750 MG in SOD CHLORIDE 0.9% 150 ML IVPB SCH ×2 (11:02→21:38)
--- NOTE | 2016-12-06 11:23 | RADRPT ---
PROCEDURE: XR Chest. CLINICAL INDICATION: Respiratory distress. TECHNIQUE: AP view of the chest was performed. COMPARISON: December 03, 2016 FINDINGS: The right central venous catheter remains in good positioning. There is stable bibasilar atelectasi s. No acute infiltrate or findings of fluid overload. The heart size is stable. The osseous struc tures are intact. IMPRESSION: Right central venous catheter in good positioning. Stable bibasilar atelectasis. No acute infiltra te or findings of fluid overload. No interval change. RPTAT: QQ. .Morelia Rodriguez MD, Date Time Electronically viewed and signed by .Morelia Rodriguez MD, MD on 12/06/2016 11:23 .F/
--- NOTE | 2016-12-06 11:47 | PN ---
DATE: 12/06/2016 INFECTIOUS DISEASE PROGRESS NOTE SUBJECTIVE: No acute changes. The patient is alert, sitting in bed and watching TV, he is still on low dose of Levophed drip. No fevers. VITAL SIGNS: Temperature 98.2, pulse 82, respirations 24, blood pressure 127/74, saturation 97% on nasal cannula. LABORATORY DATA: WBC 14.9, H and H 10.2 and 30.9, platelets 407, no shift. BUN 28, creatinine 0.63 . MICROBIOLOGY: Urine culture growing Acinetobacter baumannii and Enterococcus species. ALLERGIES: 1. PENICILLIN. 2. MEROPENEM. 3. SULFA. 4. KEFLEX. ANTIMICROBIALS: The patient is on: 1. Vancomycin. 2. Colistin. INDWELLINGS: The patient has right IJ triple lumen catheter and suprapubic catheter. PHYSICAL EXAMINATION: GENERAL: This is chronically ill elderly man who is awake, in no distress. HEENT: Head atraumatic, normocephalic. Sclerae anicteric. Buccal mucosa dry. NECK: Supple, trachea midline. CHEST: Rise symmetrical. Breath sounds diminished to bases. HEART: S1, S2. ABDOMEN: Soft, bowel sounds present. EXTREMITIES: With trace edema. ASSESSMENT: 1. Septic shock. 2. Polymicrobial multidrug-resistant urinary tract infection. 3. Quadriplegia. 4. Chronic kidney disease. 5. Diabetes. PLAN: The patient is clinically improving. He is being followed by Dr. Hartmann in urology consulta tion who recommends to repeat CT of the abdomen and pelvis without contrast. His renal function so far is stable. We will continue him on current antimicrobials for now. Continue to titrate Levophe d drip down. Dictated By: SESAR WEINSTEIN TOY MAKER for RUSTY PIRES MD NI/NTS Conf#: [id number] DID#: [id number]
--- NOTE | 2016-12-06 15:05 | PN ---
Date/Time of Note Date/Time of Note DATE: 12/06/16 TIME: 15:05 Assessment/Plan VTE Prophylaxis VTE Prophylaxis Intervention: LMWH Assessment/Plan Chief Complaint/Hosp Course 1.Septic Shock - cont levophed. IV antibiotics. culture shows Acinobacter Baumanii/enterococcus spp - appreciate ID c/s 2. Leukocytosis 2/ to #1 - there is a sacral ulcer noted - appreciate wound care - worsening 3. Malfunctioning suprapubic catheter - appreciate urology recs - needs films from prior placement in order to determine how to remove and replace - awaiting records from [facility] 4. Type II DM - hgba1c 8.4 - diabetic consult, ISS, c/w metformin - added lantus and novolog 5. CKD - stage I/II - will continue with renally adjusting medications, avoid nephrotoxins 6. Anemia - microcytic - occult blood, transfuse if hgb < 7.5 g/dL - iron deficient supplementation started 7. Quadriplegia - continue with pain meds, PT eval/tx 8. Depression - continue with SSRI 9. Hypomagnesemia - replete 10. Acute encephalopathy - behavior changes - malingering - start seroquel 25 mg po qhs 11. GI ppx - pepcid po 12. DVT ppx - lovenox dispo - f/u urology, as per clinical course, f/u labs, retrieve the records Problems: Subjective 24 Hr Interval Summary Constitutional: no complaints Exam/Review of Systems Vital Signs Vitals Vital Signs Date Time Temp Pulse Resp B/P Pulse Ox O2 Delivery O2 Flow Rate FiO2 12/06/16 12:30 97.7 68 13 109/64 98 Nasal Cannula 12/06/16 12:00 3.0 12/04/16 23:00 30 Intake and Output 12/05/16 12/05/16 12/06/16 15:00 23:00 07:00 Intake Total 1226.59 ml 999.35 ml 605.62 ml Output Total 630 ml 435 ml 385 ml Balance 596.59 ml 564.35 ml 220.62 ml Exam Constitutional: alert Respiratory: clear to auscultation Cardiovascular: regular rate and rhythm Gastrointestinal: soft, No distended Musculoskeletal: nl extremities to inspection Results Result Diagram: 12/06/16 0415 12/06/16 0415 Results 24 hrs Laboratory Tests Test 12/05/16 18:24 12/05/16 20:42 12/06/16 01:43 12/06/16 04:15 Bedside Glucose 201 223 H 233 H Anion Gap 14 Basophils # 0.1 Basophils % 0.9 Blood Morphology Comment Blood Urea Nitrogen 28 H Calcium Level 8.6 Carbon Dioxide Level 28 Chloride Level 108 Creatinine 0.63 Eosinophils # 1.9 H Eosinophils % 13.0 H Glucose Level 185 Hematocrit 30.9 L Hemoglobin 10.2 L Lymphocytes # 4.9 H Lymphocytes % 33.1 Magnesium Level 1.6 L Mean Corpuscular Hemoglobin 25.6 L Mean Corpuscular Hemoglobin Concent 33.0 Mean Corpuscular Volume 77.8 L Mean Platelet Volume 7.3 L Monocytes # 1.1 H Monocytes % 7.4 Neutrophils # 6.8 Neutrophils % 45.6 Nucleated Red Blood Cells # 0.0 Nucleated Red Blood Cells % 0.0 Phosphorus Level 3.3 Platelet Count 407 Potassium Level 4.3 Random Cortisol 3.8 Red Blood Count 3.98 L Red Cell Distribution Width 19.3 H Sodium Level 146 H White Blood Count 14.9 H Test 12/06/16 06:45 12/06/16 09:38 12/06/16 11:21 Vancomycin Level Trough 18.3 Bedside Glucose 182 207 Medications Medications Current Medications Ondansetron HCl (Zofran Inj) 4 mg Q6H PRN IV NAUSEA AND/OR VOMITING; Start 11/28 at 18:30 Acetaminophen (Tylenol Tab) 650 mg Q6H PRN PO PAIN LEVEL 1-3 OR FEVER; Start at 18:30 Acetaminophen/ Hydrocodone Bitart ([place] (5/325)) 1 tab Q6H PRN PO MODERATE PAIN LEVEL 4-6; Start 11/28/16 at 18:30 Morphine Sulfate (morphine) 2 mg Q4H PRN IV SEVERE PAIN LEVEL 7-10; Start at 18:30 Docusate Sodium (Colace) 100 mg Q12H PRN PO CONSTIPATION; Start 11/28/16 at 18: 30 Enoxaparin Sodium (Lovenox) 40 mg DAILY SC Last administered on 12/06/16 09:49 ; Admin Dose 40 MG; Start 11/29/16 at 09:00 Amlodipine Besylate (Norvasc) 10 mg DAILY PO Last administered on 11/29/16 11: 05; Admin Dose 10 MG; Start 11/29/16 at 09:00 Ascorbic Acid (Vitamin C) 500 mg DAILY PO Last administered on 12/06/16 09:45 ; Admin Dose 500 MG; Start 11/29/16 at 09:00 Baclofen (Lioresal) 20 mg TID PO Last administered on 12/06/16 14:03; Admin Dose 20 MG; Start 11/28/16 at 21:00 Bisacodyl (Dulcolax Supp) 10 mg DAILY ID Last administered on 12/03/16 09:05; Admin Dose 10 MG; Start 11/29/16 at 09:00 Ferrous Sulfate (Ferrous Sulfate (Ec)) 325 mg DAILY PO Last administered on 09:46; Admin Dose 325 MG; Start 11/29/16 at 09:00 Magnesium Hydroxide (Milk Of Mag) 30 ml QHS PRN PO CONSTIPATION; Start 11/28/16 at 18:30 Zinc Sulfate (Zinc Sulfate) 220 mg DAILY PO Last administered on 12/06/16 09: 45; Admin Dose 220 MG; Start 11/29/16 at 09:00 Multivitamins/ Minerals (Theragran-M) 1 tab DAILY PO Last administered on 09:46; Admin Dose 1 TAB; Start 11/29/16 at 09:00 Fish Oil (Fish Oil) 1,000 mg DAILY PO Last administered on 12/06/16 09:45; Admin Dose 1,000 MG; Start 11/29/16 at 09:00 Miscellaneous Information 1 ea NOTE XX ; Start 11/28/16 at 18:30 Glucose (Glutose) 15 gm Q15M PRN PO DECREASED GLUCOSE; Start 11/28/16 at 18:30 Glucose (Glutose) 22.5 gm Q15M PRN PO DECREASED GLUCOSE; Start 11/28/16 at 18:30 Dextrose (D50w Syringe) 25 ml Q15M PRN IV DECREASED GLUCOSE; Start 11/28/16 at 18:30 Dextrose (D50w Syringe) 50 ml Q15M PRN IV DECREASED GLUCOSE; Start 11/28/16 at 18:30 Glucagon (Glucagen) 1 mg Q15M PRN IM DECREASED GLUCOSE; Start 11/28/16 at 18:30 Glucose (Glutose) 15 gm Q15M PRN BUCCAL DECREASED GLUCOSE; Start 11/28/16 at 18: 30 Nystatin (Nystatin Powder) 1 applic BID TOP Last administered on 12/06/16 09: 47; Admin Dose 1 APPLIC; Start 11/28/16 at 21:00 Diagnostic Test (Pha) (Accucheck) 1 ea 02 XX Last administered on 12/06/16 02: 26; Admin Dose 1 EA; Start 11/30/16 at 02:00 Collagenase (Santyl) 1 applic DAILY TOP Last administered on 12/06/16 09:47; Admin Dose 1 APPLIC; Start 11/29/16 at 14:30 Famotidine (Pepcid) 20 mg BID PO Last administered on 12/06/16 09:46; Admin Dose 20 MG; Start 11/30/16 at 21:00 Quetiapine Fumarate 25 mg 25 mg QHS PO Last administered on 12/05/16 20:42; Admin Dose 25 MG; Start 12/01/16 at 21:00 Sodium Chloride 1,000 ml @ 75 mls/hr [id number] IV Last administered on 06:37; Admin Dose 75 MLS/HR; Start 12/02/16 at 09:00 Norepinephrine 16 mg/Dextrose 500 ml @ 0 mls/hr TITRATE IV Last administered on 12/06/16 09:50; Admin Dose 9.37 MLS/HR; Start 12/03/16 at 23:00 Colistimethate Sodium/Sodium Chloride (Coly-Mycin/NS) 100 ml @ 200 mls/hr Q12 IVPB Last administered on 12/06/16 09:41; Admin Dose 200 MLS/HR; Start at 21:00 Insulin Glargine 20 unit 20 unit DAILY@20 SC Last administered on 12/05/16 20: 46; Admin Dose 20 UNIT; Start 12/04/16 at 20:00 Vancomycin HCl/ Sodium Chloride (Vancocin/NS) 150 ml @ 75 mls/hr Q12H IVPB Last administered on 12/06/16 11:02; Admin Dose 75 MLS/HR; Start 12/06/16 at 10 :00 Miscellaneous Information (*Rx Drug Level Order Reminder*) VANCO TR LEVEL PRIOR... ONCE ONCE XX ; Start 12/07/16 at 21:00; Stop 12/07/16 at 21:01 JOSÉ ANTONIO ANDRE Dec 06, 2016 15:05
[2016-12-06] MEDS ORDERED: MAGNESIUM SULFATE 2 GM/50 ML 50 ML IVPB ONE (15:30)
--- NOTE | 2016-12-06 15:36 | RADRPT ---
PROCEDURE: CT Abdomen and Pelvis without contrast. CLINICAL INDICATION: Abdominal and pelvic pain. TECHNIQUE: CT scan of the abdomen and pelvis without contrast was performed. Coronal and sagittal reformatted images were obtained from the axial source images. Images were reviewed on a high-[employer] PACS workstation. Total exam DLP is 1212.75 mGy-cm. CTDIvol is 20.09 mGy. One or more of the following dose reduction techniques were used: Automated exposure control, adjustment of the mA and/ or kV according to patient size, use of iterative reconstruction technique. COMPARISON: Supine abdomen radiograph dated 11/29/2016. FINDINGS: The lung bases are normal. There is no pleural effusion or pericardial effusion. The heart size is normal. The liver is normal in size and attenuation. There is no focal hepatic lesion. The gallbladder and bile ducts are normal. The spleen is normal in size. There is no focal splenic lesion. Both adrenals are normal with no enlargement or mass. The pancreas is unremarkable with no mass or evidence of pancreatitis. There is no hydronephrosis. There is a benign cyst superiorly in the right kidney measuring 3.8 cm. There is a nonobstructing 0.2 cm calculus in the upper right kidney, a nonobstructing 0.7 cm calcu zacarias in the mid right kidney, a nonobstructing 0.3 cm calculus in the mid right kidney. There is a h yperechoic 1.3 cm mass or calcification in the mid left kidney posteriorly. The abdominal aorta is not dilated. There is calcification in the aorta consistent with atherosclero sis. There is no retroperitoneal lymphadenopathy or mass. There is no pelvic lymphadenopathy or mass. There is a small bore suprapubic catheter in the bladder. The tip may be within the bladder wall an teriorly inferiorly. The bladder volume is approximately 350 ml. There is a fluid collection withi n the region of the proximal corpora cavernosum measuring approximately 2.0 x 2.7 x 6.5 cm in AP, tr ansverse, and cranial caudal dimensions. The periappendiceal region is unremarkable with no evidence of appendicitis. The appendix is well se en and appears normal. The bowel and mesentery are normal. There is no free fluid or free gas. There is fusion of the spine and partial fusion of the sacroiliac joints consistent with ankylosing spondylitis. There are severe degenerative changes of the hips. IMPRESSION: 1. Benign cyst superiorly in the right kidney. 2. Nonobstructing right renal calculi. 3. Hyperechoic 1.3 cm mass or calcification in the mid left kidney posteriorly. 4. Atherosclerosis. 5. Suprapubic catheter which may have the tip in the bladder wall anteriorly. Further evaluation a dvised. 6. Fluid collection within the region of the proximal corpora cavernosum measuring 2.0 x 2.7 x 6.5 cm. Clinical correlation advised. 7. Normal appendix. 8. Ankylosing spondylitis and severe degenerative changes of the hips. RPTAT: QQ .Sriram Tam MD, MD Date Time Electronically viewed and signed by .Sriram Tam MD, on 12/06/2016 15:36 .R/
--- NOTE | 2016-12-06 18:24 | PN ---
DATE: 12/06/2016 SUBJECTIVE: Suprapubic tube that is not draining all the urine. There is urine bypassing it and th e patient is in the intensive care unit on vasopressors because of hypotension. THE PATIENT IS NIURKA RGIC TO MANY MEDICATIONS WHICH ARE LISTED IN HIS RECORD. Because of the suprapubic tube not functio janie well, I ordered a CT scan of the abdomen and pelvis on him yesterday, it was done today. Also, see if we could get the [place] suprapubic catheter, but that has not been obtained yet. OBJECTIVE: VITAL SIGNS: Temperature is 97.8, pulse is 89, respirations 11, blood pressure 106/66. GENERAL: The patient is awake, alert, and communicative. ABDOMEN: The abdomen is obese. The suprapubic tube is draining. It drained a good amount of urine and the urine is clear, but there is leakage around it. LABORATORY DATA: 1. CT scan of the abdomen and pelvis that was done was reported as a benign cyst superiorly in the right kidney. 2. Nonobstructing right renal calculi. 3. Hyperechoic 1.3 cm mass or calcification in the mid to left kidney posteriorly. 4. Atherosclerosis. 5. Suprapubic catheter which may have the tip in the bladder wall anteriorly. Further evaluation a dvised. Fluid collection within the region of the proximal corpora cavernosa measuring 2.0 x 2.7 x 6.5 cm, clinical correlation advised. Normal appendix. Ankylosing spondylitis and severe degenerat edu changes of the hips. LABORATORY DATA: CBC shows a white count of 14.9, hemoglobin 10.2, hematocrit 30.9. BUN is 28, cre atinine 0.63, sodium 146, potassium 4.3, chloride 108, CO2 of 28. IMPRESSION: Suprapubic tube that needs to be changed and I tried to push it in; hopefully with the tip of it goes into the bladder further, it would not. Then, the next thing to do would be to try t o pull it out and then try to put another new suprapubic tube. It would be helpful if we have a hodan lynchar Malecot so where we could use the stylet to straighten up the tip of the [place], but if it is not available, then we will have to pull it out and that may causing bleeding and we will have to se e if we could put another catheter. I will have the ultrasound available in case we have to do that as well. Dictated By: NAJMA SR/KOREY Conf#: [id number] DID#: [id number]
[2016-12-06] MEDS: QUETIAPINE 25 MG TAB PO SCH (20:37)
[2016-12-06] MEDS: INSULIN GLARGINE [LANtus] 3 ML PEN SC SCH (20:53)
[2016-12-07] VITALS (76 sets, daily range): BP systolic 78–180; BP diastolic 42–126; PULSE 73–113; RESP 10–25
[2016-12-07] MEDS: SOD CHLORIDE 0.9% 1,000 ML IV SCH ×3 (01:18→17:57)
[2016-12-07] MEDS: ACCUCHECK XX SCH (01:36)
[2016-12-07 04:53] LABS: BASOPHIL # 0.1 10^3/ul (0.0-0.1); BASOPHILS % 0.7 % (0.0-2.0); EOSINOPHILS # 1.9 10^3/ul (0.0-0.5); EOSINOPHILS % 14.2 % (0.0-7.0); HEMATOCRIT 31.3 % (42.0-52.0); HEMOGLOBIN 10.4 g/dl (14.0-18.0); LYMPHOCYTES # 4.1 10^3/ul (0.8-2.9); LYMPHOCYTES % 31.1 % (15.0-51.0); MEAN CORPUSCULAR HEMOGLOBIN 25.5 pg (29.0-33.0); MEAN CORPUSCULAR HGB CONC 33.2 g/dl (32.0-37.0); MEAN CORPUSCULAR VOLUME 76.9 fl (82.0-101.0); MEAN PLATELET VOLUME 7.5 fl (7.4-10.4); MONOCYTE # 0.9 10^3/ul (0.3-0.9); MONOCYTES % 6.8 % (0.0-11.0); NEUTROPHIL # 6.3 10^3/ul (1.6-7.5); NEUTROPHILS % 47.2 % (39.0-77.0); PLATELET COUNT 375 10^3/UL (140-440); RED BLOOD COUNT 4.07 10^6/ul (4.70-6.10); RED CELL DISTRIBUTION WIDTH 19.8 % (11.5-14.5); UNCORRECTED WBC 13.3 10^3/ul (4.8-10.8); WHITE BLOOD COUNT 13.3 10^3/ul (4.8-10.8)
[2016-12-07 05:10] LABS: CALCIUM 8.8 mg/dl (8.4-10.2); CREATININE 0.54 mg/dl (0.61-1.24)
[2016-12-07 05:11] LABS: MAGNESIUM 1.8 mg/dl (1.7-2.5)
[2016-12-07 05:41] LABS: CONDITION 1; LH ANALYZER COMMENTS 1
[2016-12-07] MEDS: INSULIN ASPART [NOVOLOG] 3 ML PEN SC SCH ×7 (07:33→20:26)
[2016-12-07] MEDS: AMLODIPINE 10 MG TAB PO SCH (08:09)
[2016-12-07] MEDS: BISACODYL 10 MG SUPP PR SCH (08:09)
[2016-12-07] MEDS: COLISTIMETHATE 75 MG in SOD CHLORIDE 0.9% 100 ML IVPB SCH ×2 (08:23→20:14)
[2016-12-07] MEDS: FISH OIL 1,000 MG CAP PO SCH (08:24)
[2016-12-07] MEDS: metFORMIN 500 MG TAB PO SCH ×2 (08:24→17:59)
[2016-12-07] MEDS: ZINC SULFATE 220 MG CAP PO SCH (08:24)
[2016-12-07] MEDS: FAMOTIDINE 20 MG TAB PO SCH ×2 (08:24→20:14)
[2016-12-07] MEDS: BACLOFEN 10 MG TAB PO SCH ×3 (08:24→20:14)
[2016-12-07] MEDS: ASCORBIC ACID 500 MG TAB PO SCH (08:24)
[2016-12-07] MEDS: MULTIVITAMINS/MINERALS TAB PO SCH (08:24)
[2016-12-07] MEDS: FERROUS SULFATE (EC) 325 MG TAB PO SCH (08:24)
[2016-12-07] MEDS: NYSTATIN 30 GM POWDER BTL TOP SCH ×2 (08:25→20:23)
[2016-12-07] MEDS: COLLAGENASE 30 GM TUBE TOP SCH (08:26)
[2016-12-07] MEDS: ENOXAPARIN 40 MG/0.4 ML SYG SC SCH (08:31)
--- NOTE | 2016-12-07 08:53 | CONS ---
Date/Time of Note Date/Time of Note DATE: 12/07/16 TIME: 08:51 Assessment/Plan Assessment/Plan Additional Assessment/Plan Assessment recommendations; 1. Patient admitted with severe UTI with sepsis with significant clinical improvement. 2. Diabetes. 3. Quadriplegia. 4. History of suprapubic catheter placement. Continue treatment. Taper off Levophed as tolerated. Continue current antibiotics. Consultation Date/Type/Reason Admit Date/Time Nov 28, 2016 at 17:58 Type of Consultation: Pulmonary/critical care 24 HR Interval Summary Free Text/Dictation Patient condition is stable. He is completely awake alert. Being fed by the nurse on the bed. Denies any shortness of breath, chest pain, abdominal pain, nausea vomiting. Requiring Levophed although at 2 mics per minute now. General examination; middle-aged man currently in no distress awake and alert. Exam/Review of Systems Vital Signs Vitals Vital Signs Date Time Temp Pulse Resp B/P Pulse Ox O2 Delivery O2 Flow Rate FiO2 12/07/16 06:00 92 18 83/62 Room Air 12/07/16 05:30 100 12/07/16 04:48 21 12/07/16 04:00 98.3 12/06/16 12:00 3.0 Intake and Output 12/06/16 12/06/16 12/07/16 15:00 23:00 07:00 Intake Total 1147.48 ml 904.98 ml 843.11 ml Output Total 910 ml 350 ml 600 ml Balance 237.48 ml 554.98 ml 243.11 ml Exam HEENT examination; supple neck, no JVD. No lymphadenopathy. Pharynx is clear. Pupils are midsize and reactive to light. No neck masses. Chest examination; clear to auscultation bilaterally. S1-S2 audible, no murmurs. Regular rhythm. Abdomen examination; soft, there is a suprapubic catheter in place. Bowel sounds audible. Abdomen is nondistended. No organomegaly. Extremity examination; no peripheral edema. GREENHOUSE MANAGER examination; patient is awake alert has intact cranial nerves , has stable quadriplegia. Results Result Diagram: 12/07/16 0400 12/07/16 0400 Results 24 hrs Laboratory Tests Test 12/06/16 09:38 12/06/16 11:21 12/06/16 16:55 12/07/16 04:00 Bedside Glucose 182 207 130 Anion Gap 15 Basophils # 0.1 Basophils % 0.7 Blood Morphology Comment Blood Urea Nitrogen 32 H Calcium Level 8.8 Carbon Dioxide Level 29 Chloride Level 103 Creatinine 0.54 L Eosinophils # 1.9 H Eosinophils % 14.2 H Glucose Level 137 # Hematocrit 31.3 L Hemoglobin 10.4 L Lymphocytes # 4.1 H Lymphocytes % 31.1 Magnesium Level 1.8 Mean Corpuscular Hemoglobin 25.5 L Mean Corpuscular Hemoglobin Concent 33.2 Mean Corpuscular Volume 76.9 L Mean Platelet Volume 7.5 Monocytes # 0.9 Monocytes % 6.8 Neutrophils # 6.3 Neutrophils % 47.2 Nucleated Red Blood Cells # 0.0 Nucleated Red Blood Cells % 0.0 Platelet Count 375 Potassium Level 4.0 Red Blood Count 4.07 L Red Cell Distribution Width 19.8 H Sodium Level 143 White Blood Count 13.3 H Test 12/07/16 07:32 Bedside Glucose 120 Medications Medications Current Medications Ondansetron HCl (Zofran Inj) 4 mg Q6H PRN IV NAUSEA AND/OR VOMITING; Start 11/28 at 18:30 Acetaminophen (Tylenol Tab) 650 mg Q6H PRN PO PAIN LEVEL 1-3 OR FEVER; Start at 18:30 Acetaminophen/ Hydrocodone Bitart ([place] (5/325)) 1 tab Q6H PRN PO MODERATE PAIN LEVEL 4-6; Start 11/28/16 at 18:30 Morphine Sulfate (morphine) 2 mg Q4H PRN IV SEVERE PAIN LEVEL 7-10; Start at 18:30 Docusate Sodium (Colace) 100 mg Q12H PRN PO CONSTIPATION; Start 11/28/16 at 18: 30 Enoxaparin Sodium (Lovenox) 40 mg DAILY SC Last administered on 12/06/16 09:49 ; Admin Dose 40 MG; Start 11/29/16 at 09:00 Amlodipine Besylate (Norvasc) 10 mg DAILY PO Last administered on 11/29/16 11: 05; Admin Dose 10 MG; Start 11/29/16 at 09:00 Ascorbic Acid (Vitamin C) 500 mg DAILY PO Last administered on 12/06/16 09:45 ; Admin Dose 500 MG; Start 11/29/16 at 09:00 Baclofen (Lioresal) 20 mg TID PO Last administered on 12/06/16 20:37; Admin Dose 20 MG; Start 11/28/16 at 21:00 Bisacodyl (Dulcolax Supp) 10 mg DAILY [place] Last administered on 12/03/16 09:05; Admin Dose 10 MG; Start 11/29/16 at 09:00 Ferrous Sulfate (Ferrous Sulfate (Ec)) 325 mg DAILY PO Last administered on 09:46; Admin Dose 325 MG; Start 11/29/16 at 09:00 Magnesium Hydroxide (Milk Of Mag) 30 ml QHS PRN PO CONSTIPATION; Start 11/28/16 at 18:30 Zinc Sulfate (Zinc Sulfate) 220 mg DAILY PO Last administered on 12/06/16 09: 45; Admin Dose 220 MG; Start 11/29/16 at 09:00 Multivitamins/ Minerals (Theragran-M) 1 tab DAILY PO Last administered on 09:46; Admin Dose 1 TAB; Start 11/29/16 at 09:00 Fish Oil (Fish Oil) 1,000 mg DAILY PO Last administered on 12/06/16 09:45; Admin Dose 1,000 MG; Start 11/29/16 at 09:00 Miscellaneous Information 1 ea NOTE XX ; Start 11/28/16 at 18:30 Glucose (Glutose) 15 gm Q15M PRN PO DECREASED GLUCOSE; Start 11/28/16 at 18:30 Glucose (Glutose) 22.5 gm Q15M PRN PO DECREASED GLUCOSE; Start 11/28/16 at 18:30 Dextrose (D50w Syringe) 25 ml Q15M PRN IV DECREASED GLUCOSE; Start 11/28/16 at 18:30 Dextrose (D50w Syringe) 50 ml Q15M PRN IV DECREASED GLUCOSE; Start 11/28/16 at 18:30 Glucagon (Glucagen) 1 mg Q15M PRN IM DECREASED GLUCOSE; Start 11/28/16 at 18:30 Glucose (Glutose) 15 gm Q15M PRN BUCCAL DECREASED GLUCOSE; Start 11/28/16 at 18: 30 Nystatin (Nystatin Powder) 1 applic BID TOP Last administered on 12/06/16 20: 41; Admin Dose 1 APPLIC; Start 11/28/16 at 21:00 Diagnostic Test (Pha) (Accucheck) 1 ea 02 XX Last administered on 12/06/16 02: 26; Admin Dose 1 EA; Start 11/30/16 at 02:00 Collagenase (Santyl) 1 applic DAILY TOP Last administered on 12/06/16 09:47; Admin Dose 1 APPLIC; Start 11/29/16 at 14:30 Famotidine (Pepcid) 20 mg BID PO Last administered on 12/06/16 20:37; Admin Dose 20 MG; Start 11/30/16 at 21:00 Quetiapine Fumarate 25 mg 25 mg QHS PO Last administered on 12/06/16 20:37; Admin Dose 25 MG; Start 12/01/16 at 21:00 Sodium Chloride 1,000 ml @ 75 mls/hr [id number] IV Last administered on 01:18; Admin Dose 75 MLS/HR; Start 12/02/16 at 09:00 Norepinephrine 16 mg/Dextrose 500 ml @ 0 mls/hr TITRATE IV Last administered on 12/06/16 09:50; Admin Dose 9.37 MLS/HR; Start 12/03/16 at 23:00 Colistimethate Sodium/Sodium Chloride (Coly-Mycin/NS) 100 ml @ 200 mls/hr Q12 IVPB Last administered on 12/06/16 20:37; Admin Dose 200 MLS/HR; Start at 21:00 Insulin Glargine 20 unit 20 unit DAILY@20 SC Last administered on 12/06/16 20: 53; Admin Dose 20 UNIT; Start 12/04/16 at 20:00 Vancomycin HCl/ Sodium Chloride (Vancocin/NS) 150 ml @ 75 mls/hr Q12H IVPB Last administered on 12/06/16 21:38; Admin Dose 75 MLS/HR; Start 12/06/16 at 10 :00 Miscellaneous Information (*Rx Drug Level Order Reminder*) VANCO TR LEVEL PRIOR... ONCE ONCE XX ; Start 12/07/16 at 21:00; Stop 12/07/16 at 21:01 REGIS LUU Dec 07, 2016 08:53
[2016-12-07] MEDS: VANCOMYCIN 750 MG in SOD CHLORIDE 0.9% 150 ML IVPB SCH ×2 (09:49→22:19)
--- NOTE | 2016-12-07 11:56 | CONS ---
Date/Time of Note Date/Time of Note DATE: 12/07/16 TIME: 11:54 Assessment/Plan Assessment/Plan Chief Complaint/Hosp Course SUBJECTIVE: No acute changes. The patient is sleeping, looks comfortable. No fevers. MICROBIOLOGY: Urine culture growing Acinetobacter baumannii and Enterococcus species. ALLERGIES: 1. PENICILLIN. 2. MEROPENEM. 3. SULFA. 4. KEFLEX. ANTIMICROBIALS: 1. Vancomycin. 2. Colistin. INDWELLINGS: The patient has right IJ triple lumen catheter and suprapubic catheter. PHYSICAL EXAMINATION: GENERAL: This is chronically ill elderly man who is awake, in no distress. HEENT: Head atraumatic, normocephalic. Sclerae anicteric. Buccal mucosa dry. NECK: Supple, trachea midline. CHEST: Rise symmetrical. Breath sounds diminished to bases. HEART: S1, S2. ABDOMEN: Soft, bowel sounds present. EXTREMITIES: With trace edema. ASSESSMENT: 1. Septic shock 2 to #2. 2. Polymicrobial multidrug-resistant urinary tract infection. 3. Quadriplegia. 4. Chronic kidney disease. 5. Diabetes. PLAN: The patient is clinically improving. He is being followed by Dr. Hartmann in urology consultation, CT of the abdomen and pelvis noted. His renal function so far is stable. We will continue him on current antimicrobials. Pending sp catheter change DW staff Problems: Consultation Date/Type/Reason Admit Date/Time Nov 28, 2016 at 17:58 Initial Consult Date Type of Consultation: ID Exam/Review of Systems Vital Signs Vitals Vital Signs Date Time Temp Pulse Resp B/P Pulse Ox O2 Delivery O2 Flow Rate FiO2 12/07/16 10:45 80 11 103/67 99 Nasal Cannula 12/07/16 08:00 97.7 12/07/16 04:48 21 12/06/16 12:00 3.0 Intake and Output 12/06/16 12/06/16 12/07/16 15:00 23:00 07:00 Intake Total 1147.48 ml 904.98 ml 1261.86 ml Output Total 910 ml 350 ml 760 ml Balance 237.48 ml 554.98 ml 501.86 ml Results Result Diagram: 12/07/16 0400 12/07/16 0400 Results 24 hrs Laboratory Tests Test 12/06/16 16:55 12/07/16 04:00 12/07/16 07:32 12/07/16 11:22 Bedside Glucose 130 120 162 Anion Gap 15 Basophils # 0.1 Basophils % 0.7 Blood Morphology Comment Blood Urea Nitrogen 32 H Calcium Level 8.8 Carbon Dioxide Level 29 Chloride Level 103 Creatinine 0.54 L Eosinophils # 1.9 H Eosinophils % 14.2 H Glucose Level 137 # Hematocrit 31.3 L Hemoglobin 10.4 L Lymphocytes # 4.1 H Lymphocytes % 31.1 Magnesium Level 1.8 Mean Corpuscular Hemoglobin 25.5 L Mean Corpuscular Hemoglobin Concent 33.2 Mean Corpuscular Volume 76.9 L Mean Platelet Volume 7.5 Monocytes # 0.9 Monocytes % 6.8 Neutrophils # 6.3 Neutrophils % 47.2 Nucleated Red Blood Cells # 0.0 Nucleated Red Blood Cells % 0.0 Platelet Count 375 Potassium Level 4.0 Red Blood Count 4.07 L Red Cell Distribution Width 19.8 H Sodium Level 143 White Blood Count 13.3 H Medications Medications Current Medications Ondansetron HCl (Zofran Inj) 4 mg Q6H PRN IV NAUSEA AND/OR VOMITING; Start 11/28 at 18:30 Acetaminophen (Tylenol Tab) 650 mg Q6H PRN PO PAIN LEVEL 1-3 OR FEVER; Start at 18:30 Acetaminophen/ Hydrocodone Bitart ([place] (5/325)) 1 tab Q6H PRN PO MODERATE PAIN LEVEL 4-6; Start 11/28/16 at 18:30 Morphine Sulfate (morphine) 2 mg Q4H PRN IV SEVERE PAIN LEVEL 7-10; Start at 18:30 Docusate Sodium (Colace) 100 mg Q12H PRN PO CONSTIPATION; Start 11/28/16 at 18: 30 Enoxaparin Sodium (Lovenox) 40 mg DAILY SC Last administered on 12/07/16 08:31 ; Admin Dose 40 MG; Start 11/29/16 at 09:00 Amlodipine Besylate (Norvasc) 10 mg DAILY PO Last administered on 11/29/16 11: 05; Admin Dose 10 MG; Start 11/29/16 at 09:00 Ascorbic Acid (Vitamin C) 500 mg DAILY PO Last administered on 12/07/16 08:24 ; Admin Dose 500 MG; Start 11/29/16 at 09:00 Baclofen (Lioresal) 20 mg TID PO Last administered on 12/07/16 08:24; Admin Dose 20 MG; Start 11/28/16 at 21:00 Bisacodyl (Dulcolax Supp) 10 mg DAILY [place] Last administered on 12/03/16 09:05; Admin Dose 10 MG; Start 11/29/16 at 09:00 Ferrous Sulfate (Ferrous Sulfate (Ec)) 325 mg DAILY PO Last administered on 08:24; Admin Dose 325 MG; Start 11/29/16 at 09:00 Magnesium Hydroxide (Milk Of Mag) 30 ml QHS PRN PO CONSTIPATION; Start 11/28/16 at 18:30 Zinc Sulfate (Zinc Sulfate) 220 mg DAILY PO Last administered on 12/07/16 08: 24; Admin Dose 220 MG; Start 11/29/16 at 09:00 Multivitamins/ Minerals (Theragran-M) 1 tab DAILY PO Last administered on 08:24; Admin Dose 1 TAB; Start 11/29/16 at 09:00 Fish Oil (Fish Oil) 1,000 mg DAILY PO Last administered on 12/07/16 08:24; Admin Dose 1,000 MG; Start 11/29/16 at 09:00 Miscellaneous Information 1 ea NOTE XX ; Start 11/28/16 at 18:30 Glucose (Glutose) 15 gm Q15M PRN PO DECREASED GLUCOSE; Start 11/28/16 at 18:30 Glucose (Glutose) 22.5 gm Q15M PRN PO DECREASED GLUCOSE; Start 11/28/16 at 18:30 Dextrose (D50w Syringe) 25 ml Q15M PRN IV DECREASED GLUCOSE; Start 11/28/16 at 18:30 Dextrose (D50w Syringe) 50 ml Q15M PRN IV DECREASED GLUCOSE; Start 11/28/16 at 18:30 Glucagon (Glucagen) 1 mg Q15M PRN IM DECREASED GLUCOSE; Start 11/28/16 at 18:30 Glucose (Glutose) 15 gm Q15M PRN BUCCAL DECREASED GLUCOSE; Start 11/28/16 at 18: 30 Nystatin (Nystatin Powder) 1 applic BID TOP Last administered on 12/07/16 08: 25; Admin Dose 1 APPLIC; Start 11/28/16 at 21:00 Diagnostic Test (Pha) (Accucheck) 1 ea 02 XX Last administered on 12/06/16 02: 26; Admin Dose 1 EA; Start 11/30/16 at 02:00 Collagenase (Santyl) 1 applic DAILY TOP Last administered on 12/07/16 08:26; Admin Dose 1 APPLIC; Start 11/29/16 at 14:30 Famotidine (Pepcid) 20 mg BID PO Last administered on 12/07/16 08:24; Admin Dose 20 MG; Start 11/30/16 at 21:00 Quetiapine Fumarate 25 mg 25 mg QHS PO Last administered on 12/06/16 20:37; Admin Dose 25 MG; Start 12/01/16 at 21:00 Sodium Chloride 1,000 ml @ 75 mls/hr [id number] IV Last administered on 01:18; Admin Dose 75 MLS/HR; Start 12/02/16 at 09:00 Norepinephrine 16 mg/Dextrose 500 ml @ 0 mls/hr TITRATE IV Last administered on 12/06/16 09:50; Admin Dose 9.37 MLS/HR; Start 12/03/16 at 23:00 Colistimethate Sodium/Sodium Chloride (Coly-Mycin/NS) 100 ml @ 200 mls/hr Q12 IVPB Last administered on 12/07/16 08:23; Admin Dose 200 MLS/HR; Start at 21:00 Insulin Glargine 20 unit 20 unit DAILY@20 SC Last administered on 12/06/16 20: 53; Admin Dose 20 UNIT; Start 12/04/16 at 20:00 Vancomycin HCl/ Sodium Chloride (Vancocin/NS) 150 ml @ 75 mls/hr Q12H IVPB Last administered on 12/07/16 09:49; Admin Dose 75 MLS/HR; Start 12/06/16 at 10 :00 Miscellaneous Information (*Rx Drug Level Order Reminder*) VANCO TR LEVEL PRIOR... ONCE ONCE XX ; Start 12/07/16 at 21:00; Stop 12/07/16 at 21:01 SESAR WEINSTEIN NP Dec 07, 2016 11:56
--- NOTE | 2016-12-07 13:49 | PN ---
Date/Time of Note Date/Time of Note DATE: 12/07/16 TIME: 13:48 Assessment/Plan VTE Prophylaxis VTE Prophylaxis Intervention: LMWH Assessment/Plan Chief Complaint/Hosp Course 1.Septic Shock - cont levophed. IV antibiotics. culture shows Acinobacter Baumanii/enterococcus spp - appreciate ID c/s 2. Leukocytosis 11/23 to #1 - there is a sacral ulcer noted - appreciate wound care - worsening 3. Malfunctioning suprapubic catheter - appreciate urology recs - needs films from prior placement in order to determine how to remove and replace - awaiting records from [facility] 4. Type II DM - hgba1c 8.4 - diabetic consult, ISS, c/w metformin - added lantus and novolog 5. CKD - stage I/II - will continue with renally adjusting medications, avoid nephrotoxins 6. Anemia - microcytic - occult blood, transfuse if hgb < 7.5 g/dL - iron deficient supplementation started 7. Quadriplegia - continue with pain meds, PT eval/tx 8. Depression - continue with SSRI 9. Hypomagnesemia - replete 10. Acute encephalopathy - behavior changes - malingering - start seroquel 25 mg po qhs 11. GI ppx - pepcid po 12. DVT ppx - lovenox dispo - f/u urology, as per clinical course, f/u labs, retrieve the records Problems: Subjective 24 Hr Interval Summary Constitutional: disoriented Exam/Review of Systems Vital Signs Vitals Vital Signs Date Time Temp Pulse Resp B/P Pulse Ox O2 Delivery O2 Flow Rate FiO2 12/07/16 12:00 76 12/07/16 10:45 11 103/67 99 Nasal Cannula 12/07/16 08:00 97.7 12/07/16 04:48 21 12/06/16 12:00 3.0 Intake and Output 12/06/16 12/06/16 12/07/16 15:00 23:00 07:00 Intake Total 1147.48 ml 904.98 ml 1261.86 ml Output Total 910 ml 350 ml 760 ml Balance 237.48 ml 554.98 ml 501.86 ml Exam Constitutional: alert Respiratory: clear to auscultation Cardiovascular: regular rate and rhythm Gastrointestinal: soft, No distended Musculoskeletal: nl extremities to inspection Results Result Diagram: 12/07/160 12/07/16399 Results 24 hrs Laboratory Tests Test 12/06/16 16:55 12/07/16 04:00 12/07/16 07:32 12/07/16 11:22 Bedside Glucose 130 120 162 Anion Gap 15 Basophils # 0.1 Basophils % 0.7 Blood Morphology Comment Blood Urea Nitrogen 32 H Calcium Level 8.8 Carbon Dioxide Level 29 Chloride Level 103 Creatinine 0.54 L Eosinophils # 1.9 H Eosinophils % 14.2 H Glucose Level 137 # Hematocrit 31.3 L Hemoglobin 10.4 L Lymphocytes # 4.1 H Lymphocytes % 31.1 Magnesium Level 1.8 Mean Corpuscular Hemoglobin 25.5 L Mean Corpuscular Hemoglobin Concent 33.2 Mean Corpuscular Volume 76.9 L Mean Platelet Volume 7.5 Monocytes # 0.9 Monocytes % 6.8 Neutrophils # 6.3 Neutrophils % 47.2 Nucleated Red Blood Cells # 0.0 Nucleated Red Blood Cells % 0.0 Platelet Count 375 Potassium Level 4.0 Red Blood Count 4.07 L Red Cell Distribution Width 19.8 H Sodium Level 143 White Blood Count 13.3 H Medications Medications Current Medications Ondansetron HCl (Zofran Inj) 4 mg Q6H PRN IV NAUSEA AND/OR VOMITING; Start 11/28 at 18:30 Acetaminophen (Tylenol Tab) 650 mg Q6H PRN PO PAIN LEVEL 1-3 OR FEVER Last administered on 12/07/16 12:42; Admin Dose 650 MG; Start 11/28/16 at 18:30 Acetaminophen/ Hydrocodone Bitart ([place] (5/325)) 1 tab Q6H PRN PO MODERATE PAIN LEVEL 4-6; Start 11/28/16 at 18:30 Morphine Sulfate (morphine) 2 mg Q4H PRN IV SEVERE PAIN LEVEL 7-10; Start at 18:30 Docusate Sodium (Colace) 100 mg Q12H PRN PO CONSTIPATION; Start 11/28/16 at 18: 30 Enoxaparin Sodium (Lovenox) 40 mg DAILY SC Last administered on 12/07/16 08:31 ; Admin Dose 40 MG; Start 11/29/16 at 09:00 Amlodipine Besylate (Norvasc) 10 mg DAILY PO Last administered on 11/29/16 11: 05; Admin Dose 10 MG; Start 11/29/16 at 09:00 Ascorbic Acid (Vitamin C) 500 mg DAILY PO Last administered on 12/07/16 08:24 ; Admin Dose 500 MG; Start 11/29/16 at 09:00 Baclofen (Lioresal) 20 mg TID PO Last administered on 12/07/16 12:16; Admin Dose 20 MG; Start 11/28/16 at 21:00 Bisacodyl (Dulcolax Supp) 10 mg DAILY [place] Last administered on 12/03/16 09:05; Admin Dose 10 MG; Start 11/29/16 at 09:00 Ferrous Sulfate (Ferrous Sulfate (Ec)) 325 mg DAILY PO Last administered on 08:24; Admin Dose 325 MG; Start 11/29/16 at 09:00 Magnesium Hydroxide (Milk Of Mag) 30 ml QHS PRN PO CONSTIPATION; Start 11/28/16 at 18:30 Zinc Sulfate (Zinc Sulfate) 220 mg DAILY PO Last administered on 12/07/16 08: 24; Admin Dose 220 MG; Start 11/29/16 at 09:00 Multivitamins/ Minerals (Theragran-M) 1 tab DAILY PO Last administered on 08:24; Admin Dose 1 TAB; Start 11/29/16 at 09:00 Fish Oil (Fish Oil) 1,000 mg DAILY PO Last administered on 12/07/16 08:24; Admin Dose 1,000 MG; Start 11/29/16 at 09:00 Miscellaneous Information 1 ea NOTE XX ; Start 11/28/16 at 18:30 Glucose (Glutose) 15 gm Q15M PRN PO DECREASED GLUCOSE; Start 11/28/16 at 18:30 Glucose (Glutose) 22.5 gm Q15M PRN PO DECREASED GLUCOSE; Start 11/28/16 at 18:30 Dextrose (D50w Syringe) 25 ml Q15M PRN IV DECREASED GLUCOSE; Start 11/28/16 at 18:30 Dextrose (D50w Syringe) 50 ml Q15M PRN IV DECREASED GLUCOSE; Start 11/28/16 at 18:30 Glucagon (Glucagen) 1 mg Q15M PRN IM DECREASED GLUCOSE; Start 11/28/16 at 18:30 Glucose (Glutose) 15 gm Q15M PRN BUCCAL DECREASED GLUCOSE; Start 11/28/16 at 18: 30 Nystatin (Nystatin Powder) 1 applic BID TOP Last administered on 12/07/16 08: 25; Admin Dose 1 APPLIC; Start 11/28/16 at 21:00 Diagnostic Test (Pha) (Accucheck) 1 ea 02 XX Last administered on 12/06/16 02: 26; Admin Dose 1 EA; Start 11/30/16 at 02:00 Collagenase (Santyl) 1 applic DAILY TOP Last administered on 12/07/16 08:26; Admin Dose 1 APPLIC; Start 11/29/16 at 14:30 Famotidine (Pepcid) 20 mg BID PO Last administered on 12/07/16 08:24; Admin Dose 20 MG; Start 11/30/16 at 21:00 Quetiapine Fumarate 25 mg 25 mg QHS PO Last administered on 12/06/16 20:37; Admin Dose 25 MG; Start 12/01/16 at 21:00 Sodium Chloride 1,000 ml @ 75 mls/hr [id number] IV Last administered on 01:18; Admin Dose 75 MLS/HR; Start 12/02/16 at 09:00 Norepinephrine 16 mg/Dextrose 500 ml @ 0 mls/hr TITRATE IV Last administered on 12/06/16 09:50; Admin Dose 9.37 MLS/HR; Start 12/03/16 at 23:00 Colistimethate Sodium/Sodium Chloride (Coly-Mycin/NS) 100 ml @ 200 mls/hr Q12 IVPB Last administered on 12/07/16 08:23; Admin Dose 200 MLS/HR; Start at 21:00 Insulin Glargine 20 unit 20 unit DAILY@20 SC Last administered on 12/06/16 20: 53; Admin Dose 20 UNIT; Start 12/04/16 at 20:00 Vancomycin HCl/ Sodium Chloride (Vancocin/NS) 150 ml @ 75 mls/hr Q12H IVPB Last administered on 12/07/16 09:49; Admin Dose 75 MLS/HR; Start 12/06/16 at 10 :00 Miscellaneous Information (*Rx Drug Level Order Reminder*) VANCO TR LEVEL PRIOR... ONCE ONCE XX ; Start 12/07/16 at 21:00; Stop 2/16/17 at 21:01 JOSÉ ANTONIO ANDRE Dec 07, 2016 13:48
--- NOTE | 2016-12-07 14:02 | PN ---
DATE: 12/07/2016 SUBJECTIVE: Old suprapubic tube that is small positioned with the tip of it in the bladder wall. T he patient has a neurogenic bladder. OBJECTIVE: VITAL SIGNS: Show a temperature is 97.7, pulse 76, respirations 11, blood pressure 103/67. ABDOMEN: Obese and the suprapubic tube that he is draining, but the bladder remains full. We did a n ultrasound at bedside, and the ultrasound showed that the bladder is full and one could see the tu verónica of the suprapubic tube going across the bladder and that the tip of the bladder right at the ti p of the bladder. Therefore, I went ahead and prepped the patient, painted him with Betadine, and then draped him. Th en knowing that it is a [place], I just pulled it out and it came out, and then immediately I went a head and passed the 14-[place] Potter catheter and that went into the bladder and aspirated clear urin e from the bladder and sent it for culture. Then, I inflated the balloon of the Potter catheter with 10 mL of sterile water. Then repeated the ultrasound and demonstrated with ultrasound that the bal loon is inside the bladder and in good position. Then, the catheter was connected to a drainage bag , and sterile dressing was applied around it. The patient tolerated the procedure well and the urin e will be sent for culture and sensitivity. Dictated By: NAJMA SR/KOREY Conf#: [id number] DID#: [id number]
--- NOTE | 2016-12-07 14:59 | RADRPT ---
PROCEDURE: Ultrasound guidance for placement of suprapubic bladder catheter. CLINICAL INDICATION: Bladder outlet obstruction. TECHNIQUE: Multiple longitudinal and transverse images of the urinary bladder were obtained in the operating ro om. No radiologist was in attendance. The catheter placement was by the referring physician. COMPARISON: None. FINDINGS: The ultrasound images demonstrate urine in the urinary bladder. Subsequent images demonstrate a Fol ey catheter in the urinary bladder. IMPRESSION: 1. Ultrasound guidance for suprapubic catheter placement in the urinary bladder. RPTAT: QQ .Sriram Tam MD, MD Date Time Electronically viewed and signed by .Sriram Tam MD, MD on 12/07/2016 14:59 .R/
[2016-12-07] MEDS: QUETIAPINE 25 MG TAB PO SCH (20:14)
[2016-12-07] MEDS: INSULIN GLARGINE [LANtus] 3 ML PEN SC SCH (20:25)
[2016-12-08] VITALS (66 sets, daily range): BP systolic 71–173; BP diastolic 49–108; PULSE 72–111; RESP 11–28
[2016-12-08] MEDS: ACCUCHECK XX SCH (02:12)
[2016-12-08 04:54] LABS: POTASSIUM 3.8 mmol/L (3.5-5.1)
[2016-12-08 04:57] LABS: CREATININE 0.49 mg/dl (0.61-1.24)
[2016-12-08 04:58] LABS: CALCIUM 8.4 mg/dl (8.4-10.2)
[2016-12-08 05:03] LABS: BASOPHIL # 0.1 10^3/ul (0.0-0.1); BASOPHILS % 0.6 % (0.0-2.0); EOSINOPHILS # 1.4 10^3/ul (0.0-0.5); EOSINOPHILS % 12.8 % (0.0-7.0); HEMATOCRIT 30.3 % (42.0-52.0); HEMOGLOBIN 9.9 g/dl (14.0-18.0); LYMPHOCYTES # 4.2 10^3/ul (0.8-2.9); MEAN CORPUSCULAR HEMOGLOBIN 25.4 pg (29.0-33.0); MEAN CORPUSCULAR HGB CONC 32.7 g/dl (32.0-37.0); MEAN CORPUSCULAR VOLUME 77.8 fl (82.0-101.0); MEAN PLATELET VOLUME 7.7 fl (7.4-10.4); MONOCYTE # 0.7 10^3/ul (0.3-0.9); MONOCYTES % 6.5 % (0.0-11.0); NEUTROPHIL # 4.4 10^3/ul (1.6-7.5); NEUTROPHILS % 41.1 % (39.0-77.0); PLATELET COUNT 359 10^3/UL (140-440); RED BLOOD COUNT 3.89 10^6/ul (4.70-6.10); RED CELL DISTRIBUTION WIDTH 19.4 % (11.5-14.5); UNCORRECTED WBC 10.7 10^3/ul (4.8-10.8); WHITE BLOOD COUNT 10.7 10^3/ul (4.8-10.8)
[2016-12-08 05:12] LABS: CONDITION 1; LH ANALYZER COMMENTS 1
[2016-12-08] MEDS ORDERED: MAGNESIUM SULFATE 3 GM in SOD CHLORIDE 0.9% 100 ML IVPB ONE (07:00)
[2016-12-08] MEDS: INSULIN ASPART [NOVOLOG] 3 ML PEN SC SCH ×7 (07:35→20:37)
[2016-12-08] MEDS: FAMOTIDINE 20 MG TAB PO SCH ×2 (09:00→20:33)
[2016-12-08] MEDS: ASCORBIC ACID 500 MG TAB PO SCH (09:00)
[2016-12-08] MEDS: BACLOFEN 10 MG TAB PO SCH ×3 (09:00→20:33)
[2016-12-08] MEDS: AMLODIPINE 10 MG TAB PO SCH (09:00)
[2016-12-08] MEDS: FERROUS SULFATE (EC) 325 MG TAB PO SCH (09:00)
[2016-12-08] MEDS: FISH OIL 1,000 MG CAP PO SCH (09:00)
[2016-12-08] MEDS: MULTIVITAMINS/MINERALS TAB PO SCH (09:00)
[2016-12-08] MEDS: BISACODYL 10 MG SUPP PR SCH (09:00)
[2016-12-08] MEDS: COLLAGENASE 30 GM TUBE TOP SCH (09:01)
[2016-12-08] MEDS: ZINC SULFATE 220 MG CAP PO SCH (09:01)
[2016-12-08] MEDS: NYSTATIN 30 GM POWDER BTL TOP SCH ×2 (09:01→20:34)
[2016-12-08] MEDS: COLISTIMETHATE 75 MG in SOD CHLORIDE 0.9% 100 ML IVPB SCH ×2 (09:02→20:46)
[2016-12-08] MEDS: ENOXAPARIN 40 MG/0.4 ML SYG SC SCH (09:03)
[2016-12-08] MEDS: metFORMIN 500 MG TAB PO SCH ×2 (09:15→17:59)
[2016-12-08] MEDS: VANCOMYCIN 500MG/NS (PMX) 100 ML IVPB SCH ×2 (10:38→22:03)
[2016-12-08] MEDS: SOD CHLORIDE 0.9% 1,000 ML IV SCH ×2 (11:40→22:20)
--- NOTE | 2016-12-08 13:55 | PN ---
Date/Time of Note Date/Time of Note DATE: 12/08/16 TIME: 13:54 Assessment/Plan VTE Prophylaxis VTE Prophylaxis Intervention: LMWH Assessment/Plan Chief Complaint/Hosp Course 1.Septic Shock - cont levophed. IV antibiotics. culture shows Acinobacter Baumanii/enterococcus spp - appreciate ID c/s 2. Leukocytosis 2/ to #1 - there is a sacral ulcer noted - appreciate wound care - worsening 3. Malfunctioning suprapubic catheter - appreciate urology recs - needs films from prior placement in order to determine how to remove and replace - awaiting records from [facility] 4. Type II DM - hgba1c 8.4 - diabetic consult, ISS, c/w metformin - added lantus and novolog 5. CKD - stage I/II - will continue with renally adjusting medications, avoid nephrotoxins 6. Anemia - microcytic - occult blood, transfuse if hgb < 7.5 g/dL - iron deficient supplementation started 7. Quadriplegia - continue with pain meds, PT eval/tx 8. Depression - continue with SSRI 9. Hypomagnesemia - replete 10. Acute encephalopathy - behavior changes - malingering - start seroquel 25 mg po qhs 11. GI ppx - pepcid po 12. DVT ppx - lovenox dispo - f/u urology, as per clinical course, f/u labs, retrieve the records Problems: Subjective 24 Hr Interval Summary Constitutional: no complaints Exam/Review of Systems Vital Signs Vitals Vital Signs Date Time Temp Pulse Resp B/P Pulse Ox O2 Delivery O2 Flow Rate FiO2 12/08/16 10:45 75 18 99/58 96 Nasal Cannula 2.0 12/08/16 08:00 97.6 12/08/16 05:37 21 Intake and Output 12/07/16 12/07/16 12/08/16 15:00 23:00 07:00 Intake Total 1055.00 ml 934.15 ml 797.88 ml Output Total 975 ml 1275 ml 490 ml Balance 80.00 ml -340.85 ml 307.88 ml Exam Constitutional: alert Respiratory: clear to auscultation Cardiovascular: regular rate and rhythm Gastrointestinal: soft, No distended Musculoskeletal: nl extremities to inspection Results Result Diagram: 12/08/160 12/08/16 0400 Results 24 hrs Laboratory Tests Test 12/07/16 16:10 12/07/16 20:13 12/07/16 20:50 12/08/16 02:00 Bedside Glucose 128 198 126 Vancomycin Level Trough 18.3 Test 12/08/16 04:00 12/08/16 08:58 12/08/16 12:21 Anion Gap 15 Basophils # 0.1 Basophils % 0.6 Blood Morphology Comment Blood Urea Nitrogen 30 H Calcium Level 8.4 Carbon Dioxide Level 29 Chloride Level 106 Creatinine 0.49 L Eosinophils # 1.4 H Eosinophils % 12.8 H Glucose Level 123 Hematocrit 30.3 L Hemoglobin 9.9 L Lymphocytes # 4.2 H Lymphocytes % 39.0 Magnesium Level 1.4 L Mean Corpuscular Hemoglobin 25.4 L Mean Corpuscular Hemoglobin Concent 32.7 Mean Corpuscular Volume 77.8 L Mean Platelet Volume 7.7 Monocytes # 0.7 Monocytes % 6.5 Neutrophils # 4.4 Neutrophils % 41.1 Nucleated Red Blood Cells # 0.0 Nucleated Red Blood Cells % 0.0 Platelet Count 359 Potassium Level 3.8 Red Blood Count 3.89 L Red Cell Distribution Width 19.4 H Sodium Level 146 H White Blood Count 10.7 Bedside Glucose 110 140 Medications Medications Current Medications Ondansetron HCl (Zofran Inj) 4 mg Q6H PRN IV NAUSEA AND/OR VOMITING; Start 11/28 at 18:30 Acetaminophen (Tylenol Tab) 650 mg Q6H PRN PO PAIN LEVEL 1-3 OR FEVER Last administered on 12/07/16 12:42; Admin Dose 650 MG; Start 11/28/16 at 18:30 Acetaminophen/ Hydrocodone Bitart ([place] (5/325)) 1 tab Q6H PRN PO MODERATE PAIN LEVEL 4-6; Start 11/28/16 at 18:30 Morphine Sulfate (morphine) 2 mg Q4H PRN IV SEVERE PAIN LEVEL 7-10; Start at 18:30 Docusate Sodium (Colace) 100 mg Q12H PRN PO CONSTIPATION; Start 11/28/16 at 18: 30 Enoxaparin Sodium (Lovenox) 40 mg DAILY SC Last administered on 12/08/16 09:03 ; Admin Dose 40 MG; Start 11/29/16 at 09:00 Amlodipine Besylate (Norvasc) 10 mg DAILY PO Last administered on 11/29/16 11: 05; Admin Dose 10 MG; Start 11/29/16 at 09:00 Ascorbic Acid (Vitamin C) 500 mg DAILY PO Last administered on 12/08/16 09:00 ; Admin Dose 500 MG; Start 11/29/16 at 09:00 Baclofen (Lioresal) 20 mg TID PO Last administered on 12/08/16 13:02; Admin Dose 20 MG; Start 11/28/16 at 21:00 Bisacodyl (Dulcolax Supp) 10 mg DAILY ID Last administered on 12/03/16 09:05; Admin Dose 10 MG; Start 11/29/16 at 09:00 Ferrous Sulfate (Ferrous Sulfate (Ec)) 325 mg DAILY PO Last administered on 09:00; Admin Dose 325 MG; Start 11/29/16 at 09:00 Magnesium Hydroxide (Milk Of Mag) 30 ml QHS PRN PO CONSTIPATION; Start 11/28/16 at 18:30 Zinc Sulfate (Zinc Sulfate) 220 mg DAILY PO Last administered on 12/08/16 09: 01; Admin Dose 220 MG; Start 11/29/16 at 09:00 Multivitamins/ Minerals (Theragran-M) 1 tab DAILY PO Last administered on 09:00; Admin Dose 1 TAB; Start 11/29/16 at 09:00 Fish Oil (Fish Oil) 1,000 mg DAILY PO Last administered on 12/08/16 09:00; Admin Dose 1,000 MG; Start 11/29/16 at 09:00 Miscellaneous Information 1 ea NOTE XX ; Start 11/28/16 at 18:30 Glucose (Glutose) 15 gm Q15M PRN PO DECREASED GLUCOSE; Start 11/28/16 at 18:30 Glucose (Glutose) 22.5 gm Q15M PRN PO DECREASED GLUCOSE; Start 11/28/16 at 18:30 Dextrose (D50w Syringe) 25 ml Q15M PRN IV DECREASED GLUCOSE; Start 11/28/16 at 18:30 Dextrose (D50w Syringe) 50 ml Q15M PRN IV DECREASED GLUCOSE; Start 11/28/16 at 18:30 Glucagon (Glucagen) 1 mg Q15M PRN IM DECREASED GLUCOSE; Start 11/28/16 at 18:30 Glucose (Glutose) 15 gm Q15M PRN BUCCAL DECREASED GLUCOSE; Start 11/28/16 at 18: 30 Nystatin (Nystatin Powder) 1 applic BID TOP Last administered on 12/08/16 09: 01; Admin Dose 1 APPLIC; Start 11/28/16 at 21:00 Diagnostic Test (Pha) (Accucheck) 1 ea 02 XX Last administered on 12/08/16 02: 12; Admin Dose 1 EA; Start 11/30/16 at 02:00 Collagenase (Santyl) 1 applic DAILY TOP Last administered on 12/08/16 09:01; Admin Dose 1 APPLIC; Start 11/29/16 at 14:30 Famotidine (Pepcid) 20 mg BID PO Last administered on 12/08/16 09:00; Admin Dose 20 MG; Start 11/30/16 at 21:00 Quetiapine Fumarate 25 mg 25 mg QHS PO Last administered on 12/07/16 20:14; Admin Dose 25 MG; Start 12/01/16 at 21:00 Sodium Chloride 1,000 ml @ 75 mls/hr [id number] IV Last administered on 17:57; Admin Dose 75 MLS/HR; Start 12/02/16 at 09:00 Norepinephrine 16 mg/Dextrose 500 ml @ 0 mls/hr TITRATE IV Last administered on 12/06/16 09:50; Admin Dose 9.37 MLS/HR; Start 12/03/16 at 23:00 Colistimethate Sodium/Sodium Chloride (Coly-Mycin/NS) 100 ml @ 200 mls/hr Q12 IVPB Last administered on 12/08/16 09:02; Admin Dose 200 MLS/HR; Start at 21:00 Insulin Glargine 20 unit 20 unit DAILY@20 SC Last administered on 12/07/16 20: 25; Admin Dose 20 UNIT; Start 12/04/16 at 20:00 Vancomycin HCl (Vancocin) 100 ml @ 100 mls/hr Q12H IVPB Last administered on 10:38; Admin Dose 100 MLS/HR; Start 12/08/16 at 10:00 JOSÉ ANTONIO ANDRE Dec 08, 2016 13:55
--- NOTE | 2016-12-08 14:47 | PN ---
DATE: 12/08/2016 SUBJECTIVE: No acute events overnight. The patient is alert, lying comfortably in bed, no fevers. He is still on Levophed at 2 mcg. WBC today 10.7, platelets 359, no shift, no bands. BUN 30, crea tinine 0.49. MICROBIOLOGY: Urine culture growing Enterococcus species and Acinetobacter baumannii. ANTIMICROBIALS: The patient remains on IV vancomycin and IV Colistin. INDWELLINGS: Suprapubic catheter. PHYSICAL EXAMINATION: GENERAL: Chronically ill-appearing, man who is in no distress. HEENT: Head atraumatic, normocephalic. Sclerae anicteric. Buccal mucosa dry. NECK: Supple, trachea midline. CHEST: Rise symmetrical. Breath sounds diminished. HEART: S1, S2. ABDOMEN: Soft, bowel tones present. EXTREMITIES: Wasted, no cyanosis. ASSESSMENT: 1. Sepsis with shock. 2. Polymicrobial multi-drug resistant urinary tract infection. 3. Paraplegia with neurogenic bladder. 4. Diabetes. 5. Chronic kidney disease. PLAN: The patient remains clinically stable, still requiring low dose of Levophed drip. He is stat us post new suprapubic catheter, white blood cell count tracing down. Renal function is okay. We w ill continue him on current regimen. Dictated By: SESAR WEINSTEIN MEDICAL OFFICE ASST for RUSTY MILLARD/KOREY Conf#: [id number] DID#: [id number]
[2016-12-08] MEDS: QUETIAPINE 25 MG TAB PO SCH (20:33)
[2016-12-08] MEDS: SENNA TAB PO SCH (20:33)
[2016-12-08] MEDS: INSULIN GLARGINE [LANtus] 3 ML PEN SC SCH (20:37)
[2016-12-08] MEDS: DOCUSATE SODIUM 10 MG/ML (10ML CUP) PO SCH (20:42)
[2016-12-08] MEDS ORDERED: DOCUSATE SODIUM 100 MG CAP PO SCH (21:00)
[2016-12-08] MEDS ORDERED: BISACODYL 10 MG SUPP PR PRN (22:00)
[2016-12-09] VITALS (54 sets, daily range): BP systolic 45–159; BP diastolic 35–141; PULSE 70–114; RESP 11–25
[2016-12-09] MEDS: ACCUCHECK XX SCH (02:10)
[2016-12-09 05:05] LABS: BASOPHIL # 0.1 10^3/ul (0.0-0.1); BASOPHILS % 0.6 % (0.0-2.0); EOSINOPHILS # 1.1 10^3/ul (0.0-0.5); EOSINOPHILS % 9.2 % (0.0-7.0); HEMATOCRIT 30.1 % (42.0-52.0); HEMOGLOBIN 9.9 g/dl (14.0-18.0); LYMPHOCYTES # 3.3 10^3/ul (0.8-2.9); LYMPHOCYTES % 26.9 % (15.0-51.0); MEAN CORPUSCULAR HEMOGLOBIN 25.7 pg (29.0-33.0); MEAN CORPUSCULAR HGB CONC 32.9 g/dl (32.0-37.0); MEAN CORPUSCULAR VOLUME 78.2 fl (82.0-101.0); MEAN PLATELET VOLUME 7.9 fl (7.4-10.4); MONOCYTE # 0.5 10^3/ul (0.3-0.9); MONOCYTES % 4.5 % (0.0-11.0); NEUTROPHIL # 7.1 10^3/ul (1.6-7.5); NEUTROPHILS % 58.8 % (39.0-77.0); PLATELET COUNT 332 10^3/UL (140-440); RED BLOOD COUNT 3.85 10^6/ul (4.70-6.10); UNCORRECTED WBC 12.1 10^3/ul (4.8-10.8); WHITE BLOOD COUNT 12.1 10^3/ul (4.8-10.8)
[2016-12-09 05:16] LABS: POTASSIUM 4.5 mmol/L (3.5-5.1)
[2016-12-09 05:19] LABS: CALCIUM 8.6 mg/dl (8.4-10.2); CREATININE 0.6 mg/dl (0.61-1.24); MAGNESIUM 1.6 mg/dl (1.7-2.5)
[2016-12-09 05:30] LABS: CONDITION 1; LH ANALYZER COMMENTS 1
[2016-12-09] MEDS: metFORMIN 500 MG TAB PO SCH ×2 (07:35→17:41)
[2016-12-09] MEDS: INSULIN ASPART [NOVOLOG] 3 ML PEN SC SCH ×7 (07:35→21:09)
[2016-12-09] MEDS: FAMOTIDINE 20 MG TAB PO SCH ×2 (08:55→21:00)
[2016-12-09] MEDS: ZINC SULFATE 220 MG CAP PO SCH (08:55)
[2016-12-09] MEDS: SENNA TAB PO SCH ×2 (08:55→21:00)
[2016-12-09] MEDS: ASCORBIC ACID 500 MG TAB PO SCH (08:55)
[2016-12-09] MEDS: COLISTIMETHATE 75 MG in SOD CHLORIDE 0.9% 100 ML IVPB SCH ×2 (08:55→21:00)
[2016-12-09] MEDS: FISH OIL 1,000 MG CAP PO SCH (08:55)
[2016-12-09] MEDS: FERROUS SULFATE (EC) 325 MG TAB PO SCH (08:55)
[2016-12-09] MEDS: BACLOFEN 10 MG TAB PO SCH ×3 (08:56→21:00)
[2016-12-09] MEDS: MULTIVITAMINS/MINERALS TAB PO SCH (08:56)
[2016-12-09] MEDS: ENOXAPARIN 40 MG/0.4 ML SYG SC SCH (08:57)
[2016-12-09] MEDS: NYSTATIN 30 GM POWDER BTL TOP SCH ×2 (08:58→21:10)
[2016-12-09] MEDS: AMLODIPINE 10 MG TAB PO SCH (09:00)
[2016-12-09] MEDS: DOCUSATE SODIUM 10 MG/ML (10ML CUP) PO SCH ×2 (09:00→21:00)
[2016-12-09] MEDS: VANCOMYCIN 500MG/NS (PMX) 100 ML IVPB SCH ×2 (11:27→22:09)
[2016-12-09] MEDS: SOD CHLORIDE 0.9% 1,000 ML IV SCH (11:28)
[2016-12-09] MEDS: COLLAGENASE 30 GM TUBE TOP SCH (13:30)
--- NOTE | 2016-12-09 13:34 | PN ---
DATE: 12/09/2016 SUBJECTIVE: This patient does have a suprapubic tube that was changed and has a urinary tract infec tion, was acinetobacter. The suprapubic tube is draining and has good urine output. OBJECTIVE: VITAL SIGNS: His temperature is 98.6. The blood pressure is 59/35. The patient is still on vasopr essors. His pulse is 78 and the respirations are 16. ABDOMEN: Obese. The suprapubic tube is in place and draining clear urine. LABORATORY DATA: CBC shows a white count of 12.1, hemoglobin 9.9, hematocrit 30.1. BUN is 28, crea tinine 0.6. Sodium 145, potassium 4.5, chloride 104, CO2 28. The urine culture taken at that time I inserted the new suprapubic tube shows Acinetobacter baumannii. The patient is being followed by the infectious disease team for this infection, in fact, he did have it before on 2 prior urine cult ures. PLAN: Keep the suprapubic tube as it is and also continue the antibiotics as per ID. Dictated By: NAJMA SR/KOREY Conf#: [id number] DID#: [id number]
[2016-12-09] MEDS ORDERED: MAGNESIUM SULFATE 3 GM in SOD CHLORIDE 0.9% 100 ML IVPB ONE (14:30)
--- NOTE | 2016-12-09 14:58 | RADRPT ---
PROCEDURE: XR Chest. CLINICAL INDICATION: Urinary tract infection. Assess for pneumonia. TECHNIQUE: Single frontal view of the chest was obtained COMPARISON: Chest x-ray to 06:21 a.m. FINDINGS: The soft tissues are normal. The bony elements are normal. The heart, left side aorta, cardiomedias tinal silhouette, pulmonary vasculature and hilar structures are normal. The lungs are clear. The co stophrenic angles are normal. A PICC line catheter enters from right internal jugular approach with its tip in the right atrium. There are monitoring electrodes projecting across the chest. Heart is borderline enlarged. IMPRESSION: 1. Stable chest x-ray with no evidence of active cardiopulmonary disease. 2. The PICC line catheter entering from right internal jugular approach arrest with its tip at the right atrial / superior vena cava junction. RPTAT:AAJJ Physician Roberto Date Time Electronically viewed and signed by Physician Roberto on 12/09/2016 14:58 ARLEEN/
--- NOTE | 2016-12-09 15:06 | NEURPT ---
DATE: 12/09/2016 SUBJECTIVE: No acute events. The patient is alert, feels good, looks comfortable. He is still on Levophed drip at 10 mcg/minute. No fevers. LABORATORY DATA: WBC today 12.1, H and H 9.1 and 30.1, platelets 332, no shift, no bands. BUN 28, creatinine 0.60. MICROBIOLOGY: Urine culture on admission grew enterococcus species and Acinetobacter baumannii. Re peat urine culture on 12/07/2016 growing Acinetobacter baumannii. INDWELLINGS: The patient has suprapubic catheter, right IJ triple-lumen catheter. ANTIMICROBIALS: 1. Vancomycin. 2. Colistin. PHYSICAL EXAMINATION: GENERAL: Well-developed, chronically ill-appearing elderly man, who is lying comfortably in bed. HEENT: Head atraumatic, normocephalic. Sclerae anicteric. Buccal mucosa dry. NECK: Supple. CHEST: Rise symmetrical. Breath sounds diminished at bases. HEART: S1, S2. ABDOMEN: Soft. Bowel sounds present. EXTREMITIES: Without cyanosis. ASSESSMENT: 1. Shock, likely septic, rule out other etiologies, clinically improving and covered with appropria te antimicrobials. 2. Polymicrobial multidrug resistant urinary tract infection. 3. Quadriplegia with neurogenic bladder and suprapubic catheter that was changed a couple of days a go. 4. Diabetes. 5. Chronic kidney disease. PLAN: The patient remains clinically stable although still on pressors. Renal function is okay. H e is on appropriate antimicrobials. We are going to order a chest x-ray and blood cultures. Order cortisol level, of note it was 3.8 on 12/06/2016. The patient may need steroids for low blood press ure. Dictated By: SESAR WEINSTEIN [employer] ARCHITECT for RUSTY PIRES MD NI/NTS Conf#: [id number] DID#: [id number]
--- NOTE | 2016-12-09 16:08 | PN ---
Date/Time of Note Date/Time of Note DATE: 12/09/16 TIME: 16:06 Assessment/Plan VTE Prophylaxis VTE Prophylaxis Intervention: LMWH Assessment/Plan Chief Complaint/Hosp Course 1.Septic Shock - now off levophed. IV antibiotics. culture shows Acinobacter Baumanii/enterococcus spp - appreciate ID c/s 2. Leukocytosis / to #1 - there is a sacral ulcer noted - appreciate wound care - worsening 3. Malfunctioning suprapubic catheter s/p replacement 4. Type II DM - hgba1c 8.4 - diabetic consult, ISS, c/w metformin - added lantus and novolog 5. CKD - stage I/II - will continue with renally adjusting medications, avoid nephrotoxins 6. Anemia - microcytic - occult blood, transfuse if hgb < 7.5 g/dL - iron deficient supplementation started 7. Quadriplegia - continue with pain meds, PT eval/tx 8. Depression - continue with SSRI 9. Hypomagnesemia - replete 10. Acute encephalopathy - behavior changes - malingering - start seroquel 25 mg po qhs 11. GI ppx - pepcid po 12. DVT ppx - lovenox dispo - possible DC tomorrow Problems: Subjective 24 Hr Interval Summary Constitutional: no complaints Exam/Review of Systems Vital Signs Vitals Vital Signs Date Time Temp Pulse Resp B/P Pulse Ox O2 Delivery O2 Flow Rate FiO2 12/09/16 15:08 2.0 12/09/16 14:30 86 18 109/63 98 Nasal Cannula 12/09/16 12:00 98.0 12/09/16 01:14 21 Intake and Output 12/08/16 12/08/16 12/09/16 15:00 23:00 07:00 Intake Total 923.5366 ml 630 ml 705.625 ml Output Total 375 ml 1120 ml 1025 ml Balance 548.5366 ml -490 ml -319.375 ml Exam Constitutional: alert, oriented Respiratory: clear to auscultation Cardiovascular: regular rate and rhythm Gastrointestinal: soft, No distended Musculoskeletal: nl extremities to inspection Results Result Diagram: 12/09/16 0340 12/09/16 0340 Results 24 hrs Laboratory Tests Test 12/08/16 17:54 12/08/16 20:16 12/09/16 02:04 12/09/16 03:40 Bedside Glucose 138 194 119 Anion Gap 18 H Basophils # 0.1 Basophils % 0.6 Blood Morphology Comment Blood Urea Nitrogen 28 H Calcium Level 8.6 Carbon Dioxide Level 28 Chloride Level 104 Creatinine 0.60 L Eosinophils # 1.1 H Eosinophils % 9.2 H Glucose Level 113 Hematocrit 30.1 L Hemoglobin 9.9 L Lymphocytes # 3.3 H Lymphocytes % 26.9 Magnesium Level 1.6 L Mean Corpuscular Hemoglobin 25.7 L Mean Corpuscular Hemoglobin Concent 32.9 Mean Corpuscular Volume 78.2 L Mean Platelet Volume 7.9 Monocytes # 0.5 Monocytes % 4.5 Neutrophils # 7.1 Neutrophils % 58.8 Nucleated Red Blood Cells # 0.0 Nucleated Red Blood Cells % 0.0 Platelet Count 332 Potassium Level 4.5 Red Blood Count 3.85 L Red Cell Distribution Width 19.0 H Sodium Level 145 H White Blood Count 12.1 H Test 12/09/16 08:04 12/09/16 11:32 Bedside Glucose 123 137 Medications Medications Current Medications Ondansetron HCl (Zofran Inj) 4 mg Q6H PRN IV NAUSEA AND/OR VOMITING; Start 11/28 at 18:30 Acetaminophen (Tylenol Tab) 650 mg Q6H PRN PO PAIN LEVEL 1-3 OR FEVER Last administered on 12/07/16 12:42; Admin Dose 650 MG; Start 11/28/16 at 18:30 Acetaminophen/ Hydrocodone Bitart ([place] (5/325)) 1 tab Q6H PRN PO MODERATE PAIN LEVEL 4-6; Start 11/28/16 at 18:30 Morphine Sulfate (morphine) 2 mg Q4H PRN IV SEVERE PAIN LEVEL 7-10; Start at 18:30 Enoxaparin Sodium (Lovenox) 40 mg DAILY SC Last administered on 12/09/16 08:57 ; Admin Dose 40 MG; Start 11/29/16 at 09:00 Amlodipine Besylate (Norvasc) 10 mg DAILY PO Last administered on 11/29/16 11: 05; Admin Dose 10 MG; Start 11/29/16 at 09:00 Ascorbic Acid (Vitamin C) 500 mg DAILY PO Last administered on 12/09/16 08:55 ; Admin Dose 500 MG; Start 11/29/16 at 09:00 Baclofen (Lioresal) 20 mg TID PO Last administered on 12/09/16 13:43; Admin Dose 20 MG; Start 11/28/16 at 21:00 Ferrous Sulfate (Ferrous Sulfate (Ec)) 325 mg DAILY PO Last administered on 08:55; Admin Dose 325 MG; Start 11/29/16 at 09:00 Magnesium Hydroxide (Milk Of Mag) 30 ml QHS PRN PO CONSTIPATION; Start 11/28/16 at 18:30 Zinc Sulfate (Zinc Sulfate) 220 mg DAILY PO Last administered on 12/09/16 08: 55; Admin Dose 220 MG; Start 11/29/16 at 09:00 Multivitamins/ Minerals (Theragran-M) 1 tab DAILY PO Last administered on 08:56; Admin Dose 1 TAB; Start 11/29/16 at 09:00 Fish Oil (Fish Oil) 1,000 mg DAILY PO Last administered on 12/09/16 08:55; Admin Dose 1,000 MG; Start 11/29/16 at 09:00 Miscellaneous Information 1 ea NOTE XX ; Start 11/28/16 at 18:30 Glucose (Glutose) 15 gm Q15M PRN PO DECREASED GLUCOSE; Start 11/28/16 at 18:30 Glucose (Glutose) 22.5 gm Q15M PRN PO DECREASED GLUCOSE; Start 11/28/16 at 18:30 Dextrose (D50w Syringe) 25 ml Q15M PRN IV DECREASED GLUCOSE; Start 11/28/16 at 18:30 Dextrose (D50w Syringe) 50 ml Q15M PRN IV DECREASED GLUCOSE; Start 11/28/16 at 18:30 Glucagon (Glucagen) 1 mg Q15M PRN IM DECREASED GLUCOSE; Start 11/28/16 at 18:30 Glucose (Glutose) 15 gm Q15M PRN BUCCAL DECREASED GLUCOSE; Start 11/28/16 at 18: 30 Nystatin (Nystatin Powder) 1 applic BID TOP Last administered on 12/09/16 08: 58; Admin Dose 1 APPLIC; Start 11/28/16 at 21:00 Diagnostic Test (Pha) (Accucheck) 1 ea 02 XX Last administered on 12/09/16 02: 10; Admin Dose 1 EA; Start 11/30/16 at 02:00 Collagenase (Santyl) 1 applic DAILY TOP Last administered on 12/09/16 13:30; Admin Dose 1 APPLIC; Start 11/29/16 at 14:30 Famotidine (Pepcid) 20 mg BID PO Last administered on 12/09/16 08:55; Admin Dose 20 MG; Start 11/30/16 at 21:00 Quetiapine Fumarate 25 mg 25 mg QHS PO Last administered on 12/08/16 20:33; Admin Dose 25 MG; Start 12/01/16 at 21:00 Sodium Chloride 1,000 ml @ 75 mls/hr [id number] IV Last administered on 11:28; Admin Dose 75 MLS/HR; Start 12/02/16 at 09:00 Norepinephrine 16 mg/Dextrose 500 ml @ 0 mls/hr TITRATE IV Last administered on 12/06/16 09:50; Admin Dose 9.37 MLS/HR; Start 12/03/16 at 23:00 Colistimethate Sodium/Sodium Chloride (Coly-Mycin/NS) 100 ml @ 200 mls/hr Q12 IVPB Last administered on 12/09/16 08:55; Admin Dose 200 MLS/HR; Start at 21:00 Insulin Glargine 20 unit 20 unit DAILY@20 SC Last administered on 12/08/16 20: 37; Admin Dose 20 UNIT; Start 12/04/16 at 20:00 Vancomycin HCl (Vancocin) 100 ml @ 100 mls/hr Q12H IVPB Last administered on 11:27; Admin Dose 100 MLS/HR; Start 12/08/16 at 10:00 Senna (Senokot) 1 tab BID PO Last administered on 12/09/16 08:55; Admin Dose 1 TAB; Start 12/08/16 at 21:00 Miscellaneous Information (*Rx Drug Level Order Reminder*) VANCO TR LEVEL PRIOR... ONCE ONCE XX ; Start 12/09/16 at 21:00; Stop 12/09/16 at 21:01 Docusate Sodium (Colace Liquid Cup) 100 mg BID PO Last administered on 09:00; Admin Dose 100 MG; Start 12/08/16 at 21:00 Bisacodyl 10 mg 10 mg DAILY PRN MA CONSTIPATION Last administered on 12/08/16 22:03; Admin Dose 10 MG; Start 12/08/16 at 22:00 Magnesium Sulfate/ Sodium Chloride (Magnesium Sulfate/NS) 106 ml @ 35.333 mls/ hr ONCE ONCE IVPB Last administered on 12/09/16 15:08; Admin Dose 35.333 MLS/ HR; Start 12/09/16 at 14:30; Stop 12/09/16 at 17:29 JOSÉ ANTONIO ANDRE Dec 09, 2016 16:07
[2016-12-09] MEDS: QUETIAPINE 25 MG TAB PO SCH (21:00)
[2016-12-09] MEDS: INSULIN GLARGINE [LANtus] 3 ML PEN SC SCH (21:09)
[2016-12-10] VITALS (38 sets, daily range): BP systolic 64–162; BP diastolic 35–89; PULSE 67–109; RESP 7–25
[2016-12-10] MEDS: SOD CHLORIDE 0.9% 1,000 ML IV SCH ×2 (00:07→14:10)
[2016-12-10] MEDS: ACCUCHECK XX SCH (02:00)
[2016-12-10 07:02] LABS: BASOPHIL # 0.1 10^3/ul (0.0-0.1); BASOPHILS % 0.9 % (0.0-2.0); EOSINOPHILS # 1.2 10^3/ul (0.0-0.5); EOSINOPHILS % 12.6 % (0.0-7.0); HEMATOCRIT 27.6 % (42.0-52.0); HEMOGLOBIN 9.3 g/dl (14.0-18.0); LYMPHOCYTES # 4.1 10^3/ul (0.8-2.9); LYMPHOCYTES % 43.6 % (15.0-51.0); MEAN CORPUSCULAR HEMOGLOBIN 26.1 pg (29.0-33.0); MEAN CORPUSCULAR HGB CONC 33.6 g/dl (32.0-37.0); MEAN CORPUSCULAR VOLUME 77.8 fl (82.0-101.0); MEAN PLATELET VOLUME 7.1 fl (7.4-10.4); MONOCYTE # 0.6 10^3/ul (0.3-0.9); MONOCYTES % 6.9 % (0.0-11.0); NEUTROPHIL # 3.4 10^3/ul (1.6-7.5); PLATELET COUNT 343 10^3/UL (140-440); RED BLOOD COUNT 3.55 10^6/ul (4.70-6.10); RED CELL DISTRIBUTION WIDTH 19.4 % (11.5-14.5); UNCORRECTED WBC 9.3 10^3/ul (4.8-10.8); WHITE BLOOD COUNT 9.3 10^3/ul (4.8-10.8)
[2016-12-10 07:12] LABS: CREATININE 0.58 mg/dl (0.61-1.24)
[2016-12-10 07:13] LABS: CALCIUM 8.2 mg/dl (8.4-10.2)
[2016-12-10 07:24] LABS: CONDITION 1; LH ANALYZER COMMENTS 1
[2016-12-10] MEDS: INSULIN ASPART [NOVOLOG] 3 ML PEN SC SCH ×7 (07:35→20:33)
[2016-12-10] MEDS: metFORMIN 500 MG TAB PO SCH ×2 (07:56→17:55)
[2016-12-10] MEDS: AMLODIPINE 10 MG TAB PO SCH (09:00)
[2016-12-10] MEDS: COLLAGENASE 30 GM TUBE TOP SCH (09:00)
[2016-12-10] MEDS: FAMOTIDINE 20 MG TAB PO SCH ×2 (09:34→20:32)
[2016-12-10] MEDS: ASCORBIC ACID 500 MG TAB PO SCH (09:34)
[2016-12-10] MEDS: ZINC SULFATE 220 MG CAP PO SCH (09:34)
[2016-12-10] MEDS: MULTIVITAMINS/MINERALS TAB PO SCH (09:34)
[2016-12-10] MEDS: FERROUS SULFATE (EC) 325 MG TAB PO SCH (09:34)
[2016-12-10] MEDS: FISH OIL 1,000 MG CAP PO SCH (09:34)
[2016-12-10] MEDS: DOCUSATE SODIUM 10 MG/ML (10ML CUP) PO SCH ×2 (09:34→20:32)
[2016-12-10] MEDS: SENNA TAB PO SCH ×2 (09:34→20:32)
[2016-12-10] MEDS: BACLOFEN 10 MG TAB PO SCH ×4 (09:34→20:32)
[2016-12-10] MEDS: NYSTATIN 30 GM POWDER BTL TOP SCH ×2 (09:35→20:32)
[2016-12-10] MEDS: ENOXAPARIN 40 MG/0.4 ML SYG SC SCH (09:37)
[2016-12-10] MEDS: COLISTIMETHATE 75 MG in SOD CHLORIDE 0.9% 100 ML IVPB SCH ×2 (09:42→20:32)
[2016-12-10] MEDS: VANCOMYCIN 500MG/NS (PMX) 100 ML IVPB SCH ×2 (10:15→21:51)
--- NOTE | 2016-12-10 15:55 | PN ---
Date/Time of Note Date/Time of Note DATE: 12/10/16 TIME: 15:54 Assessment/Plan VTE Prophylaxis VTE Prophylaxis Intervention: LMWH Assessment/Plan Chief Complaint/Hosp Course 1.Septic Shock - now off levophed. IV antibiotics. culture shows Acinobacter Baumanii/enterococcus spp - appreciate ID c/s 2. Leukocytosis / to #1 - there is a sacral ulcer noted - appreciate wound care - worsening 3. Malfunctioning suprapubic catheter s/p replacement 4. Type II DM - hgba1c 8.4 - diabetic consult, ISS, c/w metformin - added lantus and novolog 5. CKD - stage I/II - will continue with renally adjusting medications, avoid nephrotoxins 6. Anemia - microcytic - occult blood, transfuse if hgb < 7.5 g/dL - iron deficient supplementation started 7. Quadriplegia - continue with pain meds, PT eval/tx 8. Depression - continue with SSRI 9. Hypomagnesemia - replete 10. Acute encephalopathy - behavior changes - malingering - start seroquel 25 mg po qhs 11. GI ppx - pepcid po 12. DVT ppx - lovenox dispo - pt stable for DC but needs an Isolation bed and his SNF does not have one at this time, DG to Tele for the time being Problems: Subjective 24 Hr Interval Summary Constitutional: no complaints Exam/Review of Systems Vital Signs Vitals Vital Signs Date Time Temp Pulse Resp B/P Pulse Ox O2 Delivery O2 Flow Rate FiO2 12/10/16 12:00 97.6 72 12 98/66 100 Nasal Cannula 12/10/16 08:10 2.0 12/09/16 20:46 28 Intake and Output 12/09/16 12/09/16 12/10/16 15:00 23:00 07:00 Intake Total 1487.50 ml 1901 ml 635 ml Output Total 875 ml 1175 ml 1600 ml Balance 612.50 ml 726 ml -965 ml Exam Constitutional: alert Respiratory: clear to auscultation Cardiovascular: regular rate and rhythm Gastrointestinal: soft, No distended Musculoskeletal: nl extremities to inspection Results Result Diagram: 12/10/16 0630 12/10/16 0630 Results 24 hrs Laboratory Tests Test 12/09/16 17:40 12/09/16 21:06 12/09/16 21:16 12/10/16 06:30 Bedside Glucose 253 H 200 Vancomycin Level Trough 14.7 Anion Gap 11 # Basophils # 0.1 Basophils % 0.9 Blood Morphology Comment Blood Urea Nitrogen 21 H Calcium Level 8.2 L Carbon Dioxide Level 31 Chloride Level 107 Creatinine 0.58 L Eosinophils # 1.2 H Eosinophils % 12.6 H Glucose Level 116 Hematocrit 27.6 L Hemoglobin 9.3 L Lymphocytes # 4.1 H Lymphocytes % 43.6 Magnesium Level 2.0 Mean Corpuscular Hemoglobin 26.1 L Mean Corpuscular Hemoglobin Concent 33.6 Mean Corpuscular Volume 77.8 L Mean Platelet Volume 7.1 L Monocytes # 0.6 Monocytes % 6.9 Neutrophils # 3.4 Neutrophils % 36.0 L Nucleated Red Blood Cells # 0.0 Nucleated Red Blood Cells % 0.0 Platelet Count 343 Potassium Level 4.0 Red Blood Count 3.55 L Red Cell Distribution Width 19.4 H Sodium Level 145 H White Blood Count 9.3 # Test 12/10/16 07:55 12/10/16 12:25 Bedside Glucose 117 132 Medications Medications Current Medications Ondansetron HCl (Zofran Inj) 4 mg Q6H PRN IV NAUSEA AND/OR VOMITING; Start 11/28 at 18:30 Acetaminophen (Tylenol Tab) 650 mg Q6H PRN PO PAIN LEVEL 1-3 OR FEVER Last administered on 12/07/16 12:42; Admin Dose 650 MG; Start 11/28/16 at 18:30 Acetaminophen/ Hydrocodone Bitart ([place] (5/325)) 1 tab Q6H PRN PO MODERATE PAIN LEVEL 4-6; Start 11/28/16 at 18:30 Morphine Sulfate (morphine) 2 mg Q4H PRN IV SEVERE PAIN LEVEL 7-10; Start at 18:30 Enoxaparin Sodium (Lovenox) 40 mg DAILY SC Last administered on 12/10/16 09:37 ; Admin Dose 40 MG; Start 11/29/16 at 09:00 Amlodipine Besylate (Norvasc) 10 mg DAILY PO Last administered on 11/29/16 11: 05; Admin Dose 10 MG; Start 11/29/16 at 09:00 Ascorbic Acid (Vitamin C) 500 mg DAILY PO Last administered on 12/10/16 09:34 ; Admin Dose 500 MG; Start 11/29/16 at 09:00 Baclofen (Lioresal) 20 mg TID PO Last administered on 12/10/16 14:10; Admin Dose 20 MG; Start 11/28/16 at 21:00 Ferrous Sulfate (Ferrous Sulfate (Ec)) 325 mg DAILY PO Last administered on 09:34; Admin Dose 325 MG; Start 11/29/16 at 09:00 Magnesium Hydroxide (Milk Of Mag) 30 ml QHS PRN PO CONSTIPATION; Start 11/28/16 at 18:30 Zinc Sulfate (Zinc Sulfate) 220 mg DAILY PO Last administered on 12/10/16 09: 34; Admin Dose 220 MG; Start 11/29/16 at 09:00 Multivitamins/ Minerals (Theragran-M) 1 tab DAILY PO Last administered on 09:34; Admin Dose 1 TAB; Start 11/29/16 at 09:00 Fish Oil (Fish Oil) 1,000 mg DAILY PO Last administered on 12/10/16 09:34; Admin Dose 1,000 MG; Start 11/29/16 at 09:00 Miscellaneous Information 1 ea NOTE XX ; Start 11/28/16 at 18:30 Glucose (Glutose) 15 gm Q15M PRN PO DECREASED GLUCOSE; Start 11/28/16 at 18:30 Glucose (Glutose) 22.5 gm Q15M PRN PO DECREASED GLUCOSE; Start 11/28/16 at 18:30 Dextrose (D50w Syringe) 25 ml Q15M PRN IV DECREASED GLUCOSE; Start 11/28/16 at 18:30 Dextrose (D50w Syringe) 50 ml Q15M PRN IV DECREASED GLUCOSE; Start 11/28/16 at 18:30 Glucagon (Glucagen) 1 mg Q15M PRN IM DECREASED GLUCOSE; Start 11/28/16 at 18:30 Glucose (Glutose) 15 gm Q15M PRN BUCCAL DECREASED GLUCOSE; Start 11/28/16 at 18: 30 Nystatin (Nystatin Powder) 1 applic BID TOP Last administered on 12/10/16 09: 35; Admin Dose 1 APPLIC; Start 11/28/16 at 21:00 Diagnostic Test (Pha) (Accucheck) 1 ea 02 XX Last administered on 12/09/16 02: 10; Admin Dose 1 EA; Start 11/30/16 at 02:00 Collagenase (Santyl) 1 applic DAILY TOP Last administered on 12/09/16 13:30; Admin Dose 1 APPLIC; Start 11/29/16 at 14:30 Famotidine (Pepcid) 20 mg BID PO Last administered on 12/10/16 09:34; Admin Dose 20 MG; Start 11/30/16 at 21:00 Quetiapine Fumarate 25 mg 25 mg QHS PO Last administered on 12/09/16 21:00; Admin Dose 25 MG; Start 12/01/16 at 21:00 Sodium Chloride 1,000 ml @ 75 mls/hr [id number] IV Last administered on 14:10; Admin Dose 75 MLS/HR; Start 12/02/16 at 09:00 Colistimethate Sodium/Sodium Chloride (Coly-Mycin/NS) 100 ml @ 200 mls/hr Q12 IVPB Last administered on 12/10/16 09:42; Admin Dose 200 MLS/HR; Start at 21:00 Insulin Glargine 20 unit 20 unit DAILY@20 SC Last administered on 12/09/16 21: 09; Admin Dose 20 UNIT; Start 12/04/16 at 20:00 Vancomycin HCl (Vancocin) 100 ml @ 100 mls/hr Q12H IVPB Last administered on 10:15; Admin Dose 100 MLS/HR; Start 12/08/16 at 10:00 Senna (Senokot) 1 tab BID PO Last administered on 12/10/16 09:34; Admin Dose 1 TAB; Start 12/08/16 at 21:00 Docusate Sodium (Colace Liquid Cup) 100 mg BID PO Last administered on 09:34; Admin Dose 100 MG; Start 12/08/16 at 21:00 Bisacodyl 10 mg 10 mg DAILY PRN [place] CONSTIPATION Last administered on 12/08/16 22:03; Admin Dose 10 MG; Start 12/08/16 at 22:00 Norepinephrine/ Dextrose (Levophed/D5W) 500 ml @ 1.875 mls/ hr TITRATE IV ; Start 12/09/16 at 19:00 JOSÉ ANTONIO ANDRE Dec 10, 2016 15:55
--- NOTE | 2016-12-10 18:38 | CONS ---
Date/Time of Note Date/Time of Note DATE: 12/10/16 TIME: 18:36 Assessment/Plan Assessment/Plan Chief Complaint/Hosp Course SUBJECTIVE: No acute events. The patient is alert, feels good, looks comfortable. No fevers. MICROBIOLOGY: Urine culture on admission grew enterococcus species and Acinetobacter baumannii. Repeat urine culture on 12/07/2016 growing Acinetobacter baumannii. INDWELLINGS: The patient has suprapubic catheter, right IJ triple-lumen catheter. ANTIMICROBIALS: 1. Vancomycin. 2. Colistin. PHYSICAL EXAMINATION: GENERAL: Well-developed, chronically ill-appearing elderly man, who is lying comfortably in bed. HEENT: Head atraumatic, normocephalic. Sclerae anicteric. Buccal mucosa dry. NECK: Supple. CHEST: Rise symmetrical. Breath sounds diminished at bases. HEART: S1, S2. ABDOMEN: Soft. Bowel sounds present. EXTREMITIES: Without cyanosis. ASSESSMENT: 1. S/p septic shock. 2. Polymicrobial multidrug resistant urinary tract infection. 3. Quadriplegia with neurogenic bladder and suprapubic catheter that was changed a couple of days ago. 4. Diabetes. 5. Chronic kidney disease. PLAN: Stable, continue abx DW staff Problems: Consultation Date/Type/Reason Admit Date/Time Nov 28, 2016 at 17:58 Type of Consultation: ID Exam/Review of Systems Vital Signs Vitals Vital Signs Date Time Temp Pulse Resp B/P Pulse Ox O2 Delivery O2 Flow Rate FiO2 12/10/16 17:49 97.9 89 20 158/85 97 12/10/16 16:03 2.0 12/10/16 16:00 Nasal Cannula 12/09/16 20:46 28 Intake and Output 12/09/16 12/09/16 12/10/16 15:00 23:00 07:00 Intake Total 1487.50 ml 1901 ml 635 ml Output Total 875 ml 1175 ml 1600 ml Balance 612.50 ml 726 ml -965 ml Results Result Diagram: 12/10/16 0630 12/10/16 0630 Results 24 hrs Laboratory Tests Test 12/09/16 21:06 12/09/16 21:16 12/10/16 06:30 12/10/16 07:55 Bedside Glucose 200 117 Vancomycin Level Trough 14.7 Anion Gap 11 # Basophils # 0.1 Basophils % 0.9 Blood Morphology Comment Blood Urea Nitrogen 21 H Calcium Level 8.2 L Carbon Dioxide Level 31 Chloride Level 107 Creatinine 0.58 L Eosinophils # 1.2 H Eosinophils % 12.6 H Glucose Level 116 Hematocrit 27.6 L Hemoglobin 9.3 L Lymphocytes # 4.1 H Lymphocytes % 43.6 Magnesium Level 2.0 Mean Corpuscular Hemoglobin 26.1 L Mean Corpuscular Hemoglobin Concent 33.6 Mean Corpuscular Volume 77.8 L Mean Platelet Volume 7.1 L Monocytes # 0.6 Monocytes % 6.9 Neutrophils # 3.4 Neutrophils % 36.0 L Nucleated Red Blood Cells # 0.0 Nucleated Red Blood Cells % 0.0 Platelet Count 343 Potassium Level 4.0 Red Blood Count 3.55 L Red Cell Distribution Width 19.4 H Sodium Level 145 H White Blood Count 9.3 # Test 12/10/16 12:25 12/10/16 17:45 Bedside Glucose 132 180 Medications Medications Current Medications Ondansetron HCl (Zofran Inj) 4 mg Q6H PRN IV NAUSEA AND/OR VOMITING; Start 11/28 at 18:30 Acetaminophen (Tylenol Tab) 650 mg Q6H PRN PO PAIN LEVEL 1-3 OR FEVER Last administered on 12/07/16 12:42; Admin Dose 650 MG; Start 11/28/16 at 18:30 Acetaminophen/ Hydrocodone Bitart ([place] (5/325)) 1 tab Q6H PRN PO MODERATE PAIN LEVEL 4-6; Start 11/28/16 at 18:30 Morphine Sulfate (morphine) 2 mg Q4H PRN IV SEVERE PAIN LEVEL 7-10; Start at 18:30 Enoxaparin Sodium (Lovenox) 40 mg DAILY SC Last administered on 12/10/16 09:37 ; Admin Dose 40 MG; Start 11/29/16 at 09:00 Ascorbic Acid (Vitamin C) 500 mg DAILY PO Last administered on 12/10/16 09:34 ; Admin Dose 500 MG; Start 11/29/16 at 09:00 Baclofen (Lioresal) 20 mg TID PO Last administered on 12/10/16 14:10; Admin Dose 20 MG; Start 11/28/16 at 21:00 Ferrous Sulfate (Ferrous Sulfate (Ec)) 325 mg DAILY PO Last administered on 09:34; Admin Dose 325 MG; Start 11/29/16 at 09:00 Magnesium Hydroxide (Milk Of Mag) 30 ml QHS PRN PO CONSTIPATION; Start 11/28/16 at 18:30 Zinc Sulfate (Zinc Sulfate) 220 mg DAILY PO Last administered on 12/10/16 09: 34; Admin Dose 220 MG; Start 11/29/16 at 09:00 Multivitamins/ Minerals (Theragran-M) 1 tab DAILY PO Last administered on 09:34; Admin Dose 1 TAB; Start 11/29/16 at 09:00 Fish Oil (Fish Oil) 1,000 mg DAILY PO Last administered on 12/10/16 09:34; Admin Dose 1,000 MG; Start 11/29/16 at 09:00 Miscellaneous Information 1 ea NOTE XX ; Start 11/28/16 at 18:30 Glucose (Glutose) 15 gm Q15M PRN PO DECREASED GLUCOSE; Start 11/28/16 at 18:30 Glucose (Glutose) 22.5 gm Q15M PRN PO DECREASED GLUCOSE; Start 11/28/16 at 18:30 Dextrose (D50w Syringe) 25 ml Q15M PRN IV DECREASED GLUCOSE; Start 11/28/16 at 18:30 Dextrose (D50w Syringe) 50 ml Q15M PRN IV DECREASED GLUCOSE; Start 11/28/16 at 18:30 Glucagon (Glucagen) 1 mg Q15M PRN IM DECREASED GLUCOSE; Start 11/28/16 at 18:30 Glucose (Glutose) 15 gm Q15M PRN BUCCAL DECREASED GLUCOSE; Start 11/28/16 at 18: 30 Nystatin (Nystatin Powder) 1 applic BID TOP Last administered on 12/10/16 09: 35; Admin Dose 1 APPLIC; Start 11/28/16 at 21:00 Diagnostic Test (Pha) (Accucheck) 1 ea 02 XX Last administered on 12/09/16 02: 10; Admin Dose 1 EA; Start 11/30/16 at 02:00 Collagenase (Santyl) 1 applic DAILY TOP Last administered on 12/09/16 13:30; Admin Dose 1 APPLIC; Start 11/29/16 at 14:30 Famotidine (Pepcid) 20 mg BID PO Last administered on 12/10/16 09:34; Admin Dose 20 MG; Start 11/30/16 at 21:00 Quetiapine Fumarate 25 mg 25 mg QHS PO Last administered on 12/09/16 21:00; Admin Dose 25 MG; Start 12/01/16 at 21:00 Sodium Chloride 1,000 ml @ 75 mls/hr [id number] IV Last administered on 14:10; Admin Dose 75 MLS/HR; Start 12/02/16 at 09:00 Colistimethate Sodium/Sodium Chloride (Coly-Mycin/NS) 100 ml @ 200 mls/hr Q12 IVPB Last administered on 12/10/16 09:42; Admin Dose 200 MLS/HR; Start at 21:00 Insulin Glargine 20 unit 20 unit DAILY@20 SC Last administered on 12/09/16 21: 09; Admin Dose 20 UNIT; Start 12/04/16 at 20:00 Vancomycin HCl (Vancocin) 100 ml @ 100 mls/hr Q12H IVPB Last administered on 10:15; Admin Dose 100 MLS/HR; Start 12/08/16 at 10:00 Senna (Senokot) 1 tab BID PO Last administered on 12/10/16 09:34; Admin Dose 1 TAB; Start 12/08/16 at 21:00 Docusate Sodium (Colace Liquid Cup) 100 mg BID PO Last administered on 09:34; Admin Dose 100 MG; Start 12/08/16 at 21:00 Bisacodyl (Dulcolax Supp) 10 mg DAILY PRN [place] CONSTIPATION Last administered on 12/08/16 22:03; Admin Dose 10 MG; Start 12/08/16 at 22:00 SESAR WEINSTEIN NP Dec 10, 2016 18:38
[2016-12-10] MEDS: QUETIAPINE 25 MG TAB PO SCH (20:32)
[2016-12-10] MEDS: INSULIN GLARGINE [LANtus] 3 ML PEN SC SCH (20:46)
[2016-12-11] VITALS (7 sets, daily range): BP systolic 108; BP diastolic 55; PULSE 76–84; RESP 13
[2016-12-11] MEDS: ACCUCHECK XX SCH (02:22)
[2016-12-11] MEDS: SOD CHLORIDE 0.9% 1,000 ML IV SCH (05:38)
[2016-12-11 06:39] LABS: POTASSIUM 4.5 mmol/L (3.5-5.1)
[2016-12-11 06:42] LABS: CREATININE 0.65 mg/dl (0.61-1.24)
[2016-12-11 06:43] LABS: CALCIUM 8.5 mg/dl (8.4-10.2)
[2016-12-11 07:13] LABS: BASOPHIL # 0.1 10^3/ul (0.0-0.1); BASOPHILS % 0.8 % (0.0-2.0); EOSINOPHILS # 1.5 10^3/ul (0.0-0.5); EOSINOPHILS % 13.1 % (0.0-7.0); HEMATOCRIT 29.7 % (42.0-52.0); HEMOGLOBIN 9.9 g/dl (14.0-18.0); LYMPHOCYTES # 4.3 10^3/ul (0.8-2.9); LYMPHOCYTES % 36.9 % (15.0-51.0); MEAN CORPUSCULAR HGB CONC 33.3 g/dl (32.0-37.0); MEAN CORPUSCULAR VOLUME 78.1 fl (82.0-101.0); MONOCYTE # 0.8 10^3/ul (0.3-0.9); NEUTROPHIL # 4.9 10^3/ul (1.6-7.5); NEUTROPHILS % 42.2 % (39.0-77.0); PLATELET COUNT 358 10^3/UL (140-440); RED BLOOD COUNT 3.81 10^6/ul (4.70-6.10); RED CELL DISTRIBUTION WIDTH 19.3 % (11.5-14.5); UNCORRECTED WBC 11.7 10^3/ul (4.8-10.8); WHITE BLOOD COUNT 11.7 10^3/ul (4.8-10.8)
[2016-12-11 07:15] LABS: CONDITION 1; LH ANALYZER COMMENTS 1
[2016-12-11] MEDS: INSULIN ASPART [NOVOLOG] 3 ML PEN SC SCH ×6 (07:55→17:55)
[2016-12-11] MEDS: ENOXAPARIN 40 MG/0.4 ML SYG SC SCH (09:00)
[2016-12-11] MEDS: COLLAGENASE 30 GM TUBE TOP SCH (09:00)
[2016-12-11] MEDS: NYSTATIN 30 GM POWDER BTL TOP SCH (10:20)
[2016-12-11] MEDS: BACLOFEN 10 MG TAB PO SCH ×2 (10:21→13:11)
[2016-12-11] MEDS: metFORMIN 500 MG TAB PO SCH ×2 (10:21→17:55)
[2016-12-11] MEDS: FISH OIL 1,000 MG CAP PO SCH (10:21)
[2016-12-11] MEDS: FERROUS SULFATE (EC) 325 MG TAB PO SCH (10:21)
[2016-12-11] MEDS: ASCORBIC ACID 500 MG TAB PO SCH (10:21)
[2016-12-11] MEDS: SENNA TAB PO SCH (10:21)
[2016-12-11] MEDS: ZINC SULFATE 220 MG CAP PO SCH (10:21)
[2016-12-11] MEDS: MULTIVITAMINS/MINERALS TAB PO SCH (10:22)
[2016-12-11] MEDS: FAMOTIDINE 20 MG TAB PO SCH (10:22)
[2016-12-11] MEDS: COLISTIMETHATE 75 MG in SOD CHLORIDE 0.9% 100 ML IVPB SCH (10:22)
[2016-12-11] MEDS: DOCUSATE SODIUM 10 MG/ML (10ML CUP) PO SCH (10:22)
[2016-12-11] MEDS: VANCOMYCIN 500MG/NS (PMX) 100 ML IVPB SCH (11:53)
--- NOTE | 2016-12-11 14:40 | CONS ---
Date/Time of Note Date/Time of Note DATE: 12/11/16 TIME: 14:39 Assessment/Plan Assessment/Plan Chief Complaint/Hosp Course SUBJECTIVE: No acute events. The patient is alert, feels good, looks comfortable. No fevers. MICROBIOLOGY: Urine culture on admission grew enterococcus species and Acinetobacter baumannii. Repeat urine culture on 12/07/2016 growing Acinetobacter baumannii. INDWELLINGS: Suprapubic catheter, right IJ triple-lumen catheter. ANTIMICROBIALS: 1. Vancomycin. 2. Colistin. PHYSICAL EXAMINATION: GENERAL: Well-developed, chronically ill-appearing elderly man, who is lying comfortably in bed. HEENT: Head atraumatic, normocephalic. Sclerae anicteric. Buccal mucosa dry. NECK: Supple. CHEST: Rise symmetrical. Breath sounds diminished at bases. HEART: S1, S2. ABDOMEN: Soft. Bowel sounds present. EXTREMITIES: Without cyanosis. ASSESSMENT: 1. S/p septic shock. 2. Polymicrobial multidrug resistant urinary tract infection. 3. Quadriplegia with neurogenic bladder and suprapubic catheter that was changed by urology. 4. Diabetes. 5. Chronic kidney disease. PLAN: Remains stable, completing abx, pending dc planning [facility] staff Problems: Consultation Date/Type/Reason Admit Date/Time Nov 28, 2016 at 17:58 Type of Consultation: ID Exam/Review of Systems Vital Signs Vitals Vital Signs Date Time Temp Pulse Resp B/P Pulse Ox O2 Delivery O2 Flow Rate FiO2 12/11/16 13:44 77 12/11/16 07:30 Nasal Cannula 2.0 12/11/16 07:12 97.6 13 108/55 92 12/11/16 05:41 21 Intake and Output 12/10/16 12/10/16 12/11/16 15:00 23:00 07:00 Intake Total 1220 ml 950 ml 725 ml Output Total 850 ml 625 ml 1900 ml Balance 370 ml 325 ml -1175 ml Results Result Diagram: 12/11/16 0544 12/11/16 0544 Results 24 hrs Laboratory Tests Test 12/10/16 17:45 12/10/16 20:30 12/11/16 02:03 12/11/16 05:44 Bedside Glucose 180 155 212 Anion Gap 17 H Basophils # 0.1 Basophils % 0.8 Blood Morphology Comment Blood Urea Nitrogen 24 H Calcium Level 8.5 Carbon Dioxide Level 29 Chloride Level 104 Creatinine 0.65 Eosinophils # 1.5 H Eosinophils % 13.1 H Glucose Level 132 Hematocrit 29.7 L Hemoglobin 9.9 L Lymphocytes # 4.3 H Lymphocytes % 36.9 Mean Corpuscular Hemoglobin 26.0 L Mean Corpuscular Hemoglobin Concent 33.3 Mean Corpuscular Volume 78.1 L Mean Platelet Volume 8.0 Monocytes # 0.8 Monocytes % 7.0 Neutrophils # 4.9 Neutrophils % 42.2 Nucleated Red Blood Cells # 0.0 Nucleated Red Blood Cells % 0.0 Platelet Count 358 Potassium Level 4.5 Red Blood Count 3.81 L Red Cell Distribution Width 19.3 H Sodium Level 145 H White Blood Count 11.7 #H Test 12/11/16 08:02 12/11/16 11:54 Bedside Glucose 113 165 Medications Medications Current Medications Ondansetron HCl (Zofran Inj) 4 mg Q6H PRN IV NAUSEA AND/OR VOMITING; Start 11/28 at 18:30 Acetaminophen (Tylenol Tab) 650 mg Q6H PRN PO PAIN LEVEL 1-3 OR FEVER Last administered on 12/07/16 12:42; Admin Dose 650 MG; Start 11/28/16 at 18:30 Acetaminophen/ Hydrocodone Bitart ([place] (5/325)) 1 tab Q6H PRN PO MODERATE PAIN LEVEL 4-6; Start 11/28/16 at 18:30 Morphine Sulfate (morphine) 2 mg Q4H PRN IV SEVERE PAIN LEVEL 7-10; Start at 18:30 Enoxaparin Sodium (Lovenox) 40 mg DAILY SC Last administered on 12/11/16 09:00 ; Admin Dose 40 MG; Start 11/29/16 at 09:00 Ascorbic Acid (Vitamin C) 500 mg DAILY PO Last administered on 12/11/16 10:21 ; Admin Dose 500 MG; Start 11/29/16 at 09:00 Baclofen (Lioresal) 20 mg TID PO Last administered on 12/11/16 13:11; Admin Dose 20 MG; Start 11/28/16 at 21:00 Ferrous Sulfate (Ferrous Sulfate (Ec)) 325 mg DAILY PO Last administered on 10:21; Admin Dose 325 MG; Start 11/29/16 at 09:00 Magnesium Hydroxide (Milk Of Mag) 30 ml QHS PRN PO CONSTIPATION; Start 11/28/16 at 18:30 Zinc Sulfate (Zinc Sulfate) 220 mg DAILY PO Last administered on 12/11/16 10: 21; Admin Dose 220 MG; Start 11/29/16 at 09:00 Multivitamins/ Minerals (Theragran-M) 1 tab DAILY PO Last administered on 10:22; Admin Dose 1 TAB; Start 11/29/16 at 09:00 Fish Oil (Fish Oil) 1,000 mg DAILY PO Last administered on 12/11/16 10:21; Admin Dose 1,000 MG; Start 11/29/16 at 09:00 Miscellaneous Information 1 ea NOTE XX ; Start 11/28/16 at 18:30 Glucose (Glutose) 15 gm Q15M PRN PO DECREASED GLUCOSE; Start 11/28/16 at 18:30 Glucose (Glutose) 22.5 gm Q15M PRN PO DECREASED GLUCOSE; Start 11/28/16 at 18:30 Dextrose (D50w Syringe) 25 ml Q15M PRN IV DECREASED GLUCOSE; Start 11/28/16 at 18:30 Dextrose (D50w Syringe) 50 ml Q15M PRN IV DECREASED GLUCOSE; Start 11/28/16 at 18:30 Glucagon (Glucagen) 1 mg Q15M PRN IM DECREASED GLUCOSE; Start 11/28/16 at 18:30 Glucose (Glutose) 15 gm Q15M PRN BUCCAL DECREASED GLUCOSE; Start 11/28/16 at 18: 30 Nystatin (Nystatin Powder) 1 applic BID TOP Last administered on 12/11/16 10: 20; Admin Dose 1 APPLIC; Start 11/28/16 at 21:00 Diagnostic Test (Pha) (Accucheck) 1 ea 02 XX Last administered on 12/11/16 02: 22; Admin Dose 1 EA; Start 11/30/16 at 02:00 Collagenase (Santyl) 1 applic DAILY TOP Last administered on 12/11/16 09:00; Admin Dose 1 APPLIC; Start 11/29/16 at 14:30 Famotidine (Pepcid) 20 mg BID PO Last administered on 12/11/16 10:22; Admin Dose 20 MG; Start 11/30/16 at 21:00 Quetiapine Fumarate 25 mg 25 mg QHS PO Last administered on 12/10/16 20:32; Admin Dose 25 MG; Start 12/01/16 at 21:00 Sodium Chloride 1,000 ml @ 75 mls/hr [id number] IV Last administered on 05:38; Admin Dose 75 MLS/HR; Start 12/02/16 at 09:00 Colistimethate Sodium/Sodium Chloride (Coly-Mycin/NS) 100 ml @ 200 mls/hr Q12 IVPB Last administered on 12/11/16 10:22; Admin Dose 200 MLS/HR; Start at 21:00 Insulin Glargine 20 unit 20 unit DAILY@20 SC Last administered on 12/10/16 20: 46; Admin Dose 20 UNIT; Start 12/04/16 at 20:00 Vancomycin HCl (Vancocin) 100 ml @ 100 mls/hr Q12H IVPB Last administered on 11:53; Admin Dose 100 MLS/HR; Start 12/08/16 at 10:00 Senna (Senokot) 1 tab BID PO Last administered on 12/11/16 10:21; Admin Dose 1 TAB; Start 12/08/16 at 21:00 Docusate Sodium (Colace Liquid Cup) 100 mg BID PO Last administered on 10:22; Admin Dose 100 MG; Start 12/08/16 at 21:00 Bisacodyl (Dulcolax Supp) 10 mg DAILY PRN [place] CONSTIPATION Last administered on 12/08/16 22:03; Admin Dose 10 MG; Start 12/08/16 at 22:00 SESAR WEINSTEIN NP Dec 11, 2016 14:40
--- NOTE | 2016-12-11 16:08 | PDOCDIS ---
Discharge Instructions DIAGNOSIS Discharge Diagnosis: Sepsis CONDITION Patient Condition: Stable HOME CARE INSTRUCTIONS: Special Diet: Carb Controlled OTHER ORDERS: Other Orders: 1. Carb controlled diet. 2. Medications as per Med list. SB MOSHER NP Dec 11, 2016 16:08
--- NOTE | 2016-12-11 19:37 | DS ---
DATE OF ADMISSION: 11/28/2016 DATE OF DISCHARGE: 12/11/2016 FINAL DIAGNOSES: 1. Status post sepsis secondary to severe urinary tract infection. 2. Status post septic shock. 3. Urinary tract infection with Acinetobacter baumannii. 4. Type 2 diabetes mellitus. 5. Chronic kidney disease stage I to II. 6. Microcytic, hypochromic anemia. 7. Quadriplegia. 8. Depression. 9. Malfunctioning suprapubic catheter. Status post replacement. 10. Acute encephalopathy. 11. Iron deficiency. CONSULTATIONS: 1. Dr. Andrade Hartmann,urology. 2. Dr. Rinku Mckeon, critical care/pulmonary medicine. 3. Dr. Doni Kelly, infectious disease. 4. Dr. Thomas Lares, pulmonary/critical care. HOSPITAL COURSE: This is a 61-year-old male with past medical history of quadriplegia, type 2 diabetes mellitus, depression, and chronic kidney disease who presented with suprapubic catheter leaking and foul-smelling urine from a half-way facility. He was noticed to have leukocytosis in the emergency room. Provided the patient's history of present illness and his comorbidities, a clinical decision was made to admit the patient to inpatient setting to have him further evaluated. The patient was admitted to inpatient setting. The patient was started on empiric antibiotics. Pancultures were ordered. A urology consult and infectious disease consult were called. Meanwhile, the patient started having hypotension, most probably secondary to septic shock. Hence, the patient had to be started on pressors for blood pressure control. Meanwhile, the patient's suprapubic catheter was replaced by urology. The patient's urine culture x3 grew Acinetobacter baumannii. The patient was maintained on antibiotics as per infectious diseases. The patient has underlying type 2 diabetes mellitus. The patient's hemoglobin A1c was found to be 8.4. The patient was maintained on sliding scale insulin with fairly well controlled blood sugars. The patient does have quadriplegia. The patient was maintained on his routine medications including skeletal muscle relaxants. The patient also started having abnormal behavior including possible malingering. The patient was started on Seroquel 25 mg p.o. at bedtime. The patient has history of chronic kidney disease stage I to stage II. The patient's BUN and creatinine remained stable. The patient was also noticed to have microcytic, hypochromic anemia. The patient's H and H remained stable and the patient did not require any blood transfusion during this hospitalization. The patient's had a relatively longer hospital course. The patient was cleared by consultants to be discharged back to half-way facility. DISCHARGE DISPOSITION: The patient will be discharged to a half-way facility. DISCHARGE INSTRUCTIONS: The patient will take medications as per medication list, which are listed below. The patient's central line will be discontinued. The patient will take a carbohydrate controlled diet. CONDITION AT DISCHARGE: Stable. DISCHARGE MEDICATIONS: 1. Tylenol 650 mg p.o. q.4h. p.r.n. mild pain and/or fever. 2. Amlodipine 10 mg p.o. daily. 3. Baclofen 20 mg p.o. daily. 4. Dulcolax 10 mg p.o. daily p.r.n. constipation. 5. Ferrous sulfate 325 mg p.o. daily. 6. Glimepiride 20 mg p.o. with breakfast and dinner. 7. [place] 5/325 one tablet p.o. q.4h. p.r.n. pain. 8. Insulin Humalog as per sliding scale. 9. Metformin 1000 mg p.o. with breakfast and dinner. 10. Multivitamin with minerals. 11. [place]-3 fatty acids 500 mg p.o. daily. 12. Fleet enema 66.6 mL solution IN q.2 days p.r.n. constipation. 13. Zinc sulfate 220 mg p.o. daily. PERTINENT LABORATORY AND DIAGNOSTIC DATA: 1. Urine culture x3 positive for Acinetobacter baumannii. 2. CT scan of the abdomen and pelvis on 12/06/2016. Nonobstructing right renal calculi. Hypoechoic 1.3 cm mass or calcification in the mid left kidney posteriorly. Suprapubic catheter, which may have tip in the bladder wall anteriorly. 3. Latest chest x-ray on 12/09/2016. Stable chest x-ray with no evidence of active cardiopulmonary disease. 4. Brain CT scan on 12/01/2016. No definite acute intracranial abnormalities. 5. Latest CBC: WBC 7.7, hemoglobin 9.9, hematocrit 29.7, platelet count 350. 6. Latest BMP: Sodium 147, potassium 4.5, chloride 104, carbon dioxide 29, anion gap 17, BUN 24, creatinine 0.60, glucose 132, calcium 8.5. 7. Hemoglobin A1c 8.4. 8. Iron panel: Iron 34, TIBC 297, iron saturation 11, ferritin 57.3. At this time, I would like to thank all the consultants for seeing the patient and providing clinical recommendations. The case and management of this patient was fully discussed with Dr. Hill. Approximately 40 minutes was spent on coordinating the discharge on this patient. SB HILL MD AM/NTS Conf#: [id number] DID#: [id number] CC: UCHE GLASS MD;*EndCC* MTDD
== END 2016-12-11 18:51 | DRG 698 ==
LOC: E/R 15:13 → PP2 17:58 → ICU 12-03 11:53 → TEL 12-10 17:06
PROVIDERS: ADMIT Student in an Organized Health Care Education/Training Program; ATTEND Student in an Organized Health Care Education/Training Program
PROC: 05HM33Z Insertion of Infusion Device into Right Internal Jugular Vein, Percutaneous Approach (ICD-10-PCS; principal; 2016-11-28)
PROC: B543ZZA Ultrasonography of Right Jugular Veins, Guidance (ICD-10-PCS; 2016-11-28)
DX: T83.511A Infection and inflammatory reaction due to indwelling urethral catheter, initial encounter (principal); A41.9 Sepsis, unspecified organism; R65.21 Severe sepsis with septic shock; G82.50 Quadriplegia, unspecified; G92 Toxic encephalopathy; L89.144 Pressure ulcer of left lower back, stage 4; I95.9 Hypotension, unspecified; E11.22 Type 2 diabetes mellitus with diabetic chronic kidney disease; E83.42 Hypomagnesemia; N39.0 Urinary tract infection, site not specified; T83.038A Leakage of other urinary catheter, initial encounter; F32.9 Major depressive disorder, single episode, unspecified; N18.2 Chronic kidney disease, stage 2 (mild); Y84.6 Urinary catheterization as the cause of abnormal reaction of the patient, or of later complication, without mention of misadventure at the time of the procedure; N31.9 Neuromuscular dysfunction of bladder, unspecified; N20.0 Calculus of kidney; Z96.0 Presence of urogenital implants; N21.0 Calculus in bladder; B95.2 Enterococcus as the cause of diseases classified elsewhere; D50.8 Other iron deficiency anemias; L89.152 Pressure ulcer of sacral region, stage 2; Z88.0 Allergy status to penicillin; Z88.2 Allergy status to sulfonamides; Z88.6 Allergy status to analgesic agent; Z88.8 Allergy status to other drugs, medicaments and biological substances
CPT/HCPCS: 36415; 36600; 70450; 71010; 74000; 74176; 76942; 80048; 80053; 80202; 81001; 81003; 82533; 82728; 82803; 82962; 83036; 83540; 83605; 83690; 83735; 84100; 84134; 84443; 85025; 87040; 87081; 87086; 87400; 93005; 94660; 96374; 97162; C1751; J0744; J1650; J1815; J1956; J2270; J2405; J3370; J3475; J7030; J7040; J7050

== ENCOUNTER 2017-06-28 15:06 | Inpatient (IN) | payer MEDICAID ==
[~2017-06-28] VITALS: Ht 177.8 cm; Wt 79.5 kg
[~2017-06-28 15:06] MED LIST changes: -ACET-915 PO; +ACET325T33 PO; +AMLO-147 PO; -ASC500 PO; +ASCO500C7 PO; +BACL20TA PO; +BISA10SU75 PR; -CRAN300T PO; +CRAN500C7 PO; -DORZ10DR22 BOTH EYES; -DULR PR; -ESOM40CA PO; +FER325 PO; +FLEETPED PR; +HYDR-906 PO; -INSU100C SC; +INSU100C SQ; -LANT3I SC; -LISI10TA2 PO; +METF1000 PO; -MTF1000T PO; +MULT-105 PO; -MULT-552 PO; +OMEG500C3 PO; -SERT25TA PO; -[UNRECOGNIZED DRUG - CODE] IM
--- NOTE | 2017-06-28 16:02 | ERD ---
ER Documentation Chief Complaint Date/Time DATE: 06/28/17 TIME: 16:01 Chief Complaint dislodged suprapubic catheter HPI Patient is a 62-year-old male with chronic suprapubic tube due to spinal cord injury and paraplegia who presents to the ER with dislodged suprapubic tube since this morning. The patient complains of suprapubic pain. He denies fever or vomiting. ROS All systems reviewed and are negative except as per history of present illness. Medications Home Meds Reported Medications Insulin Glargine* (Lantus*) 100 Unit/Ml Soln, 20 UNIT SC QHS, #1 VIAL 06/28/17 Sitagliptin* (Januvia*) 100 Mg Tablet, 100 MG PO DAILY, #30 TAB 06/28/17 Glimepiride* (Glimepiride*) 4 Mg Tablet, 4 MG PO WITH BREAKFAST DINNE, TAB 06/28/17 Famotidine* (Pepcid*) 20 Mg Tablet, 20 MG PO BID, #60 TAB 06/28/17 Cranberry Extract (Cranberry Concentrate) Unknown Strength Capsule, 1680 MG PO DAILY, CAP 11/28/16 Magnesium Hydroxide* (Milk Of Magnesia*) 400 Mg/5 Ml Oral.susp, 30 ML PO QHS Y for CONSTIPATION, ML 11/28/16 Acetaminophen* (Tylenol*) 325 Mg Tablet, 650 MG PO Q4H Y for MILD PAIN LEVEL 1-4 /10, TAB 11/28/16 Hydrocodone/Acetaminophen ([place] 5-325 Tablet) 1 Each Tablet, 1 EACH PO Q4H WHILE AWAKE, TAB PAIN SCALE 5-7/10 AND QD 30 MIN PRIOR TO WOUND TX 11/28/16 Sod Phosphate/Sod Biphosphate* (Fleet* Enema Pediatric) 66.6 Ml Soln, 66.6 ML NM Q2DAYS Y for CONSTIPATION, ENEMA 11/28/16 Bisacodyl* (Bisacodyl*) 10 Mg Supp, 10 MG NM DAILY, SUPP 11/28/16 Baclofen* (Baclofen*) 20 Mg Tablet, 20 MG PO TID, TAB 11/28/16 Amlodipine Besylate* (Amlodipine Besylate*) 10 Mg Tablet, 10 MG PO DAILY, #30 TAB HOLD IF SBP<110 OR<60 11/28/16 Multivitamin with Minerals (Multivitamins with Minerals) 1 Each Tablet, 1 EACH PO DAILY, TAB 11/28/16 Metformin Hcl* (Metformin Hcl*) 1,000 Mg Tablet, 1000 MG PO WITH BREAKFAST DINNE , #60 TAB 11/28/16 Ferrous Sulfate* (Ferrous Sulfate*) 325 Mg Tabec, 325 MG PO BID, TAB 11/28/16 Ascorbic Acid* (Vitamin C*) 500 Mg Capsule.sa, 500 MG PO DAILY, CAP 11/28/16 [place]-3 Fatty Acids (Fish Oil) 500 Mg Capsule, 500 MG PO DAILY, CAP 11/28/16 Discontinued Reported Medications Glimepiride* (Glimepiride*) 2 Mg Tablet, 2 MG PO WITH BREAKFAST DINNE, TAB 11/28/16 Insulin Lispro (Humalog) 100 Unit/1 Ml Cartridge, 0 SQ SLIDING SCALE 60-110=0 UNITS, 111-150=4 UNITS, 151-200=8 UNITS, 201-250=10 UNITS, 251-300=12 UNITS,301-350=14 UNITS,>350=16 UNITS IF BS<60 OR >350 CALL MD 11/28/16 Zinc Sulfate* (Zinc Sulfate*) 220 Mg Tablet, 220 MG PO DAILY, TAB 11/28/16 Allergies Allergies: Coded Allergies: Penicillins (Verified Allergy, Severe, RASH, 06/28/17) sulfamethoxazole (Verified Allergy, Mild, 06/28/17) trimethoprim (Verified Allergy, Mild, 06/28/17) cephalexin (Verified Allergy, Unknown, 06/28/17) meropenem (Verified Allergy, Unknown, 06/28/17) as seen on SNf transfer documents PMhx/Soc Past medical history: Diabetes mellitus, hypertension, spinal cord injury Past surgical history: Suprapubic tube Social history: Denies alcohol or tobacco. History of Surgery: Yes (Suprapubic catheter placement) Anesthesia Reaction: No Hx Neurological Disorder: Yes (Quadraplegic) Hx Respiratory Disorders: No Hx Cardiac Disorders: Yes (HTN- based on papers from SNF) Hx Psychiatric Problems: No Hx Miscellaneous Medical Probl: No Hx Alcohol Use: No Hx Substance Use: No Hx Tobacco Use: No FmHx Family History: No coronary disease, No diabetes Physical Exam Vitals Vital Signs Date Time Temp Pulse Resp B/P Pulse Ox O2 Delivery O2 Flow Rate FiO2 06/28/17 15:21 97.7 114 20 223/107 97 Physical Exam Const: Alert, mild distress Head: Atraumatic Eyes: Normal Conjunctiva, No pallor, no icterus ENT: Normal External Ears, Nose and Mouth.Moist mucous membranes Neck: Full range of motion..~ No meningismus. Resp: Clear to auscultation bilaterally, No wheezes, no rales Cardio: Mild tachycardia, regular rhythm, no murmurs Abd: Soft, Distended suprapubic area with tenderness, no rebound or guarding. Skin: No petechiae or rashes Back: No midline or flank tenderness Ext: No cyanosis, or edema Neur: Awake and alert, Contractures of bilateral lower extremities. Psych: Normal Mood and Affect Result Diagram: 06/28/17189906/28/171899 Results 24 hrs Laboratory Tests Test 06/28/17 18:00 06/28/17 19:00 Urine Color YELLOW Urine Clarity TURBID Urine pH 5.0 Urine Specific [place] 1.010 Urine Ketones TRACEmg/dL Urine Nitrite NEGATIVEmg/dL Urine Bilirubin NEGATIVEmg/dL Urine Urobilinogen NEGATIVEmg/dL Urine Leukocyte Esterase 3+Dea/ul Urine Microscopic RBC 16/HPF Urine Microscopic WBC > 182/HPF Urine Bacteria MANY/HPF Urine Hemoglobin 2+mg/dL Urine Glucose 3+mg/dL Urine Total Protein 2+mg/dl White Blood Count 21.610^3/ul Red Blood Count 5.7310^6/ul Hemoglobin 15.6g/dl Hematocrit 47.6% Mean Corpuscular Volume 83.1fl Mean Corpuscular Hemoglobin 27.2pg Mean Corpuscular Hemoglobin Concent 32.8g/dl Red Cell Distribution Width 14.7% Platelet Count 91972^3/UL Mean Platelet Volume 8.9fl Neutrophils % 85.3% Lymphocytes % 8.2% Monocytes % 5.0% Eosinophils % 0.1% Basophils % 0.7% Nucleated Red Blood Cells % 0.0/100WBC Neutrophils # (Manual) 18.410^3/ul Lymphocytes # 1.810^3/ul Monocytes # 1.110^3/ul Eosinophils # 0.010^3/ul Basophils # 0.210^3/ul Nucleated Red Blood Cells # 0.010^3/ul Sodium Level 138mmol/L Potassium Level 4.8mmol/L Chloride Level 98mmol/L Carbon Dioxide Level 26mmol/L Anion Gap 19 Blood Urea Nitrogen 24mg/dl Creatinine 0.62mg/dl Glucose Level 362mg/dl Calcium Level 9.6mg/dl Current Medications Medications (Trade) Dose Ordered Sig/Aric Route PRN Reason Start Time Stop Time Status Last Admin Dose Admin Sodium Chloride (NS) 1,000 ml @ 1,000 mls/hr Q1H ONCE IV 06/28/17 19:00 06/28/17 19:59 DC 06/28/17 19:53 Levofloxacin (Levaquin) 750 mg ONCE ONCE PO 06/28/17 19:00 06/28/17 19:02 DC 06/28/17 19:53 Procedures/MDM MDM: Patient is a 62-year-old male who presents with dislodged suprapubic tube. I was able to replace a 12 [place] suprapubic tube using a rigid stylette. This relieved the patient's suprapubic distention, and the patient's symptoms rapidly improved. The urine was found to be cloudy and have signs of infection. Urine culture was sent. The patient has history of barrera resistant multi-organism UTIs, most recently Acinetobacter. He also has multiple allergies to antibiotics. He was given Levaquin and vancomycin based upon broad -spectrum coverage and tolerable medications given his allergies. He initially presented with hypertension, but following drainage of his bladder, he had low normal blood pressures. He was given IV fluids based on weight for sepsis. His lactic acid returned at 4.6. Cultures were sent, and the patient will be admitted to the hospital for further septic workup and will need ID consult as well as urology consult. Departure Diagnosis: Primary Impression: Severe sepsis Additional Impressions: Complicated UTI (urinary tract infection) Suprapubic catheter dysfunction Encounter type: initial encounter Qualified Code: T83.010A - Suprapubic catheter dysfunction, initial encounter Condition: BRYN Espinal MD Jun 28, 2017 16:02
[2017-06-28] MEDS ORDERED: FAMO-96 PO (16:23)
[2017-06-28] MEDS ORDERED: GLIM4TAB PO (16:23)
[2017-06-28] MEDS ORDERED: SITA100T8 PO (16:24)
[2017-06-28] MEDS ORDERED: LANT3I SC (16:24)
[2017-06-28 18:40] LABS: ADD UMIC YES; UR ASCORBIC ACID NEGATIVE (NEGATIVE); UR BACTERIA MANY /HPF (NONE SEEN); UR BILIRUBIN (Dip) NEGATIVE (NEGATIVE); UR BLOOD (Dip) 2+ mg/dL (NEGATIVE); UR CLARITY TURBID (CLEAR); UR COLOR YELLOW (YELLOW); UR GLUCOSE (Dip) 3+ mg/dL (NEGATIVE); UR KETONES (Dip) TRACE mg/dL (NEGATIVE); UR LEUKOCYTE ESTERASE (Dip) 3+ Leu/ul (NEGATIVE); UR NITRITE (Dip) NEGATIVE (NEGATIVE); UR NONSQUAMOUS EPITHELIAL CELL 2 /HPF (NONE SEEN); UR RBC 16 /HPF (0-5); UR TOTAL PROTEIN (Dip) 2+ mg/dl (NEGATIVE); UR UROBILINOGEN (Dip) NEGATIVE (NEGATIVE); UR WBC CLUMPS MANY /HPF (NONE SEEN)
[2017-06-28] MEDS ORDERED: SOD CHLORIDE 0.9% 1,000 ML IV ONE ×2 (19:00→21:30)
[2017-06-28] MEDS ORDERED: LEVOFLOXACIN 750 MG TABLET PO ONE (19:00)
[2017-06-28 19:22] LABS: BASOPHIL # 0.2 10^3/ul (0.0-0.1); BASOPHILS % 0.7 % (0.0-2.0); EOSINOPHILS % 0.1 % (0.0-7.0); HEMATOCRIT 47.6 % (42.0-52.0); HEMOGLOBIN 15.6 g/dl (14.0-18.0); LYMPHOCYTES # 1.8 10^3/ul (0.8-2.9); LYMPHOCYTES % 8.2 % (15.0-51.0); MEAN CORPUSCULAR HEMOGLOBIN 27.2 pg (29.0-33.0); MEAN CORPUSCULAR HGB CONC 32.8 g/dl (32.0-37.0); MEAN CORPUSCULAR VOLUME 83.1 fl (82.0-101.0); MEAN PLATELET VOLUME 8.9 fl (7.4-10.4); MONOCYTE # 1.1 10^3/ul (0.3-0.9); NEUTROPHILS % 85.3 % (39.0-77.0); PLATELET COUNT 444 10^3/UL (140-415); RED BLOOD COUNT 5.73 10^6/ul (4.70-6.10); RED CELL DISTRIBUTION WIDTH 14.7 % (11.5-14.5); WHITE BLOOD COUNT 21.6 10^3/ul (4.8-10.8)
[2017-06-28 19:39] LABS: CALCIUM 9.6 mg/dl (8.4-10.2); CREATININE 0.62 mg/dl (0.61-1.24); POTASSIUM 4.8 mmol/L (3.5-5.1)
[2017-06-28] MEDS ORDERED: VANCOMYCIN IV PER PHARMACY XX SCH (20:30)
[2017-06-28] MEDS ORDERED: ONDANSETRON 4 MG INJ IV PRN ×2 (20:30→21:30)
[2017-06-28] MEDS ORDERED: ACETAMINOPHEN 325 MG TAB PO PRN ×2 (20:30→21:30)
[2017-06-28] MEDS ORDERED: SODIUM CHLORIDE 0.9% 1L BAG IV* STA (20:52)
[2017-06-28 21:24] VITALS: PULSE 88
[2017-06-28] MEDS ORDERED: ACETAMINOPHEN 650 MG SUPP PR PRN (21:30)
[2017-06-28] MEDS ORDERED: MAGNESIUM HYDROXIDE 30ML CUP PO PRN (21:30)
[2017-06-28] MEDS ORDERED: NACL 0.9% 3 ML SYG IV SCH ×2 (21:30)
[2017-06-28 21:45] VITALS: Ht 177.8 cm; Wt 79.5 kg
[2017-06-28 21:56] VITALS: BP 121/75; RESP 16
[2017-06-28] MEDS ORDERED: GLUCOSE GEL 15 GRAM TUBE BUCCAL PRN (22:00)
[2017-06-28] MEDS ORDERED: DEXTROSE 50% 50 ML SYRINGE IV PRN ×2 (22:00)
[2017-06-28] MEDS ORDERED: GLUCOSE GEL 15 GRAM TUBE PO PRN ×2 (22:00)
[2017-06-28] MEDS ORDERED: GLUCAGON 1 MG INJ IM PRN (22:00)
[2017-06-28] MEDS ORDERED: VANCOMYCIN 1.5 GM in SOD CHLORIDE 0.9% 250 ML IVPB SCH (22:30)
[2017-06-28] MEDS: AZTREONAM 2 GM in SOD CHLORIDE 0.9% 100 ML IVPB SCH (22:45)
[2017-06-28] MEDS: SOD CHLORIDE 0.9% 1,000 ML IV SCH (22:45)
[2017-06-28 23:28] VITALS: BP 111/62; RESP 18
[2017-06-29] VITALS (11 sets, daily range): BP systolic 96–155; BP diastolic 52–78; PULSE 80–94; RESP 16–19
--- NOTE | 2017-06-29 00:31 | HP ---
Date/Time of Note Date/Time of Note DATE: 06/29/17 TIME: 00:16 Assessment/Plan VTE Prophylaxis VTE Prophylaxis Intervention: LMWH Lines/Catheters IV Catheter Type (from [facility]): Peripheral IV Urinary Cath still in place: Yes Reason Cath still needed: urinary retention Assessment/Plan Chief Complaint/Hosp Course 62-year-old male being admitted to the telemetry floor for: #1. Lactic acidosis: Lactic acid 4.6 this likely secondary to underlying urinary tract infection and/or metformin and/or dehydration. At the current time patient blood pressure is within acceptable values. Will give the patient normal saline bolus. Will monitor blood pressures. Currently on antibiotics for his urinary tract infection. Will repeat serial lactates. Of any fevers at this time. Hold metformin. #2. Urinary tract infection: Patient has a history of urinary tract infections and multiresistant organisms and multiple drug allergies. At the current time he did receive Levaquin in the ED. I will also add aztreonam. Will await urine culture sensitivities. Will obtain ID consult. May need urology consult for suprapubic catheter #3. Type II DM - check hgb1c, ISS, will hold metformin at this time secondary to #1 #4. Quadriplegia - continue with pain meds, baclofen #5. Depression -we will currently not on any medication at this time #6 DVT and GI prophylaxis:, Acid carrol Further treatment strategy will be implemented as per the clinical course Problems: HPI/ROS Admit Date/Time Admit Date/Time Jun 28, 2017 at 20:03 Hx of Present Illness Patient is a 62-year-old male with chronic suprapubic tube due to spinal cord injury and paraplegia who presents to the ER with dislodged suprapubic tube since this morning. The patient complains of suprapubic pain. He denies fever or vomiting. ER physician was able to replace a 12 [place] suprapubic tube using a rigid stylette. This relieved the patient's suprapubic distention, and the patient's symptoms rapidly improved. The urine was found to be cloudy and have signs of infection. Urine culture was sent. The patient has history of barrera resistant multi-organism UTIs, most recently Acinetobacter. After replacing the suprapubic tubing patient's blood pressure did become hypotensive , patient was given IV fluids with subsequent normalization blood pressure. Allergies: Penicillins, cephalexin, meropenem, sulfamethoxazole, trimethoprim Medications: See DEC ROS Const: As per HPI Eyes : No pain discharge or redness or change in visual acuity ENT: No pain, sore throat, congestion, congestion, dysphagia or discharge Respiratory: No shortness of breath, cough, sputum, wheezing, or pleuritic pain Cardiovascular: No chest pain, palpitation, PND, or edema GI : no change in appetite, abdominal pain, nausea, vomiting, diarrhea, constipation, or change in the color his stool Genitourinary: As per HPI Musculoskeletal: No joint pain, back pain, neck pain, restricted range of motion in neck or joints Skin: No rash, bruising or hives Neuro: Quadriplegic, as per HPI Endocrine: No polyuria, polydipsia, temperature intolerance Psych: No hallucination, depression, anxiety or suicidal ideation PMH/Family/Social Past Medical History quadriplegia, depression, diabetes, renal disease Past Surgical History suprapubic catheter placement Family History Significant Family History: no pertinent family hx Social History Alcohol Use: none Smoking Status: Never smoker Drug Use: none Exam/Review of Systems Vital Signs Vitals Vital Signs Date Time Temp Pulse Resp B/P Pulse Ox O2 Delivery O2 Flow Rate FiO2 06/29/17 00:15 90 06/28/17 23:28 98.0 18 111/62 97 06/28/17 20:26 Room Air Intake and Output 06/28/17 06/28/17 06/29/17 15:00 23:00 07:00 Intake Total 0 ml Balance 0 ml Exam Exam General: She is lying in bed sleeping comfortably easily arousable does not appear in acute distress HEENT: Atraumatic, normocephalic. The pupils are equal, round and reactive. Extraocular motor are intact Neck: Supple with full range of motion. No rigidity or meningismus Chest: Nontender Lungs: Clear to auscultation bilaterally no crackles rales or wheezing Heart: Normal S1-S2, Regular rhythm and rate. Abdomen: Soft, nontender, suprapubic catheter tubing in place no leakage apparent Extremities: Quadriplegic, contracted extremities Neurologic: Normal mental status, speech normal, quadriplegic, neurological exam secondary to patient's quadriplegia Labs Result Diagram: 9/7/17 1900 9/7/17 1900 Medications Medications Current Medications Sodium Chloride (NS) 1,000 ml @ 80 mls/hr [id number] IV Last administered on 22:45; Admin Dose 80 MLS/HR; Start 06/28/17 at 21:13 Ondansetron HCl (Zofran Inj) 4 mg Q6H PRN IV NAUSEA AND/OR VOMITING; Start 06/28 at 21:30 Acetaminophen (Tylenol Tab) 650 mg Q4H PRN PO MILD PAIN LEVEL 1-4/10; Start 06/28/17 at 21:30 Baclofen (Lioresal) 20 mg TID PO ; Start 06/29/17 at 09:00 Insulin Glargine (Lantus) 20 unit QHS SC ; Start 06/29/17 at 21:00 Magnesium Hydroxide (Milk Of Mag) 30 ml QHS PRN PO CONSTIPATION; Start 06/28/17 at 21:30 Miscellaneous Information 1,680 mg DAILY PO ; Start 06/29/17 at 09:00; Status UNV Multivitamins/ Minerals (Theragran-M) 1 tab DAILY PO ; Start 06/29/17 at 09:00 Miscellaneous Information 500 mg DAILY PO ; Start 06/29/17 at 09:00; Status UNV Diagnostic Test (Pha) 1 ea 1 ea 02 XX ; Start 06/29/17 at 02:00 Aztreonam/Sodium Chloride (Azactam/NS) 100 ml @ 100 mls/hr Q12 IVPB Last administered on 06/28/17 22:45; Admin Dose 100 MLS/HR; Start 06/28/17 at 21:30 Acetaminophen (Tylenol Supp) 650 mg Q6H PRN IN PAIN LEVEL 1-3 OR FEVER; Start 06/28/17 at 21:30 Miscellaneous Information 1 ea NOTE XX ; Start 06/28/17 at 22:00 Glucose (Glutose) 15 gm Q15M PRN PO DECREASED GLUCOSE; Start 06/28/17 at 22:00 Glucose (Glutose) 22.5 gm Q15M PRN PO DECREASED GLUCOSE; Start 06/28/17 at 22:00 Dextrose (D50w Syringe) 25 ml Q15M PRN IV DECREASED GLUCOSE; Start 06/28/17 at 22:00 Dextrose (D50w Syringe) 50 ml Q15M PRN IV DECREASED GLUCOSE; Start 06/28/17 at 22:00 Glucagon (Glucagen) 1 mg Q15M PRN IM DECREASED GLUCOSE; Start 06/28/17 at 22:00 Glucose 15 gm 15 gm Q15M PRN BUCCAL DECREASED GLUCOSE; Start 06/28/17 at 22:00 Vancomycin HCl/ Sodium Chloride (Vancocin/NS) 250 ml @ 83.333 mls/ hr Q12H IVPB ; Start 06/29/17 at 12:00 ELIZABETH VAUGHN Jun 29, 2017 00:27
[2017-06-29] MEDS: ACCU-CHEK XX SCH (02:00)
[2017-06-29 08:16] LABS: ALBUMIN 3.5 g/dl (3.3-4.9); ALBUMIN/GLOBULIN RATIO 0.97; BILIRUBIN,INDIRECT 0.4 mg/dl (0-1.1); BILIRUBIN,TOTAL 0.4 mg/dl (0.2-1.3); CALCIUM 8.6 mg/dl (8.4-10.2); CREATININE 0.47 mg/dl (0.61-1.24); MAGNESIUM 1.6 mg/dl (1.7-2.5); POTASSIUM 3.8 mmol/L (3.5-5.1); TOTAL PROTEIN 7.1 g/dl (6.1-8.1)
[2017-06-29 08:39] LABS: THYROID STIMULATING HORMONE 0.314 MIU/L (0.465-4.680)
[2017-06-29] MEDS: MULTIVITAMINS/MINERALS TAB PO SCH (08:50)
[2017-06-29] MEDS: BACLOFEN 10 MG TAB PO SCH ×3 (08:50→22:56)
[2017-06-29] MEDS: FISH OIL 1,000 MG CAP PO SCH (08:52)
[2017-06-29] MEDS: AZTREONAM 2 GM in SOD CHLORIDE 0.9% 100 ML IVPB SCH ×2 (08:53→21:00)
[2017-06-29] MEDS: ENOXAPARIN 40 MG/0.4 ML SYG SC SCH (08:54)
[2017-06-29] MEDS: INSULIN ASPART [NOVOLOG] 3 ML PEN SC SCH ×4 (08:54→23:04)
[2017-06-29] MEDS ORDERED: CRANBERRY EXTRACT PO SCH (09:00)
[2017-06-29] MEDS: SOD CHLORIDE 0.9% 1,000 ML IV SCH ×3 (09:43→23:05)
[2017-06-29] MEDS ORDERED: VANCOMYCIN 1.25 GM in SOD CHLORIDE 0.9% 250 ML IVPB SCH (12:00)
[2017-06-29] MEDS ORDERED: DIPHENHYDRAMINE 25 MG CAP PO PRN (12:30)
--- NOTE | 2017-06-29 12:33 | QN ---
Documentation Comment Patient seen and examined. Patient states hes very sweating and hot. No longer exhibiting agitation and calm and pleasant at time of examination. Also c/o itching on her chest which he states he gets often when leads are placed. Denies any pain, shortness of breath, abdominal issues, fevers, chills. Will give Benadryl PRN and hydrocortisone cream PRN for pruritic. Lactic acid is improving and will continue on fluids and monitoring lactic acids until normalized. Awaiting recommendations from ID. KRISTAN MIRANDA MD Jun 29, 2017 12:33
[2017-06-29] MEDS: NYSTATIN 30 GM POWDER BTL TOP SCH ×2 (16:37→21:00)
[2017-06-29] MEDS: COLLAGENASE 30 GM TUBE TOP SCH (16:37)
[2017-06-29] MEDS: HYDROCORTISONE 0.5% 28.35 GM CR TOP SCH ×2 (16:37→21:00)
--- NOTE | 2017-06-29 18:49 | CONS ---
DATE OF ADMISSION: 06/28/2017 DATE OF CONSULTATION: 06/29/2017 REQUESTING PHYSICIAN: Lukasz Harvey MD Thank you for this consultation. HISTORY OF PRESENT ILLNESS: This is an unfortunate 62-year-old, quadriplegic man, well known to our service from multiple previous admissions. The patient has a history of multidrug resistant UTI, recurrent sepsis with shock, diabetes, chronic kidney disease, suprapubic catheter, anemia, depression. Acutely the patient was admitted with dislodged suprapubic catheter with suprapubic pain that was inserted back by emergency department physician with urinalysis that revealed positive leukocyte esterase, WBC, many bacteria. The patient also came with white blood cell count of 21.6, H and H 15.6 and 47.6, platelets 444, neutrophils 85.3, normal lytes. BUN 24, creatinine 0.62, lactic acid 4.6. MICROBIOLOGY: Cultures are pending. ALLERGIES: PATIENT IS ALLERGIC TO PENICILLIN, KEFLEX, MEROPENEM AND BACTRIM. VITAL SIGNS: On admission, temperature was 97.7, pulse 114, respiration rate 20, blood pressure 223/107, saturation 97 percent. SOCIAL HISTORY: Patient came from the facility. REVIEW OF SYSTEMS: As per history of present illness. PHYSICAL EXAMINATION: GENERAL: This is a chronically ill-appearing, elderly man, who is awake, and in no distress. HEENT: Head atraumatic, normocephalic. Sclerae anicteric. Buccal mucosa dry. NECK: Supple. Trachea midline. CHEST: Rise symmetrical. Breath sounds diminished at the bases. HEART: S1, S2. ABDOMEN: Soft, bowel sounds present. EXTREMITIES: Wasted, contractured, no cyanosis. DIAGNOSTIC IMPRESSION: This is an a 62-year-old with numerous medical problems, who was admitted with dislodged suprapubic catheter and positive urinalysis. Patient received Levaquin and vancomycin in the emergency department and currently on vancomycin and aztreonam. Cultures are pending. He remains afebrile. We will continue him on current antimicrobials, await for final cultures. Check chest x-ray in a.m. Continue supportive care. Continue IV hydration. Dictated By: Luli Perry NP /domitila/tomas /Document#: [id number]
[2017-06-29] MEDS: INSULIN GLARGINE [LANtus] 3 ML PEN SC SCH (22:59)
[2017-06-30] VITALS (12 sets, daily range): BP systolic 86–112; BP diastolic 53–78; PULSE 72–93; RESP 16–20
[2017-06-30] MEDS: ACCU-CHEK XX SCH (02:00)
[2017-06-30] MEDS: VANCOMYCIN 750 MG in SOD CHLORIDE 0.9% 150 ML IVPB SCH ×2 (03:34→15:28)
[2017-06-30] MEDS: INSULIN ASPART [NOVOLOG] 3 ML PEN SC SCH ×4 (07:55→21:34)
[2017-06-30] MEDS: AZTREONAM 2 GM in SOD CHLORIDE 0.9% 100 ML IVPB SCH ×2 (09:27→21:23)
[2017-06-30] MEDS: SOD CHLORIDE 0.9% 1,000 ML IV SCH ×2 (09:27→19:00)
[2017-06-30] MEDS: MULTIVITAMINS/MINERALS TAB PO SCH (09:28)
[2017-06-30] MEDS: BACLOFEN 10 MG TAB PO SCH ×3 (09:28→21:24)
[2017-06-30] MEDS: ENOXAPARIN 40 MG/0.4 ML SYG SC SCH (09:30)
[2017-06-30] MEDS: FISH OIL 1,000 MG CAP PO SCH (09:34)
[2017-06-30] MEDS: COLLAGENASE 30 GM TUBE TOP SCH (09:46)
[2017-06-30] MEDS: HYDROCORTISONE 0.5% 28.35 GM CR TOP SCH ×2 (09:46→21:35)
[2017-06-30] MEDS: NYSTATIN 30 GM POWDER BTL TOP SCH ×2 (09:46→21:35)
[2017-06-30 14:42] LABS: BASOPHIL # 0.1 10^3/ul (0.0-0.1); BASOPHILS % 0.8 % (0.0-2.0); EOSINOPHILS # 0.7 10^3/ul (0.0-0.5); EOSINOPHILS % 8.7 % (0.0-7.0); HEMATOCRIT 35.9 % (42.0-52.0); HEMOGLOBIN 11.7 g/dl (14.0-18.0); LYMPHOCYTES # 2.2 10^3/ul (0.8-2.9); LYMPHOCYTES % 28.2 % (15.0-51.0); MEAN CORPUSCULAR HEMOGLOBIN 27.8 pg (29.0-33.0); MEAN CORPUSCULAR HGB CONC 32.6 g/dl (32.0-37.0); MEAN CORPUSCULAR VOLUME 85.3 fl (82.0-101.0); MEAN PLATELET VOLUME 9.4 fl (7.4-10.4); MONOCYTE # 0.5 10^3/ul (0.3-0.9); MONOCYTES % 6.4 % (0.0-11.0); NEUTROPHILS % 55.6 % (39.0-77.0); PLATELET COUNT 298 10^3/UL (140-415); RED BLOOD COUNT 4.21 10^6/ul (4.70-6.10); RED CELL DISTRIBUTION WIDTH 15.3 % (11.5-14.5); WHITE BLOOD COUNT 7.8 10^3/ul (4.8-10.8)
[2017-06-30 15:08] LABS: CALCIUM 8.1 mg/dl (8.4-10.2); CREATININE 0.55 mg/dl (0.61-1.24); MAGNESIUM 1.9 mg/dl (1.7-2.5); PHOSPHORUS 4.2 mg/dl (2.5-4.9); POTASSIUM 3.9 mmol/L (3.5-5.1)
--- NOTE | 2017-06-30 15:30 | PN ---
Date/Time of Note Date/Time of Note DATE: 06/30/17 TIME: 15:21 Assessment/Plan VTE Prophylaxis VTE Prophylaxis Intervention: LMWH Lines/Catheters IV Catheter Type (from Nrs): Peripheral IV Urinary Cath still in place: No Assessment/Plan Assessment/Plan 1. Urinary tract infection - Patient has a history of multidrug resistant UTI with multiple allergies as well - Appreciated ID input and will continue on current broad spectrum antibiotics pending sensitivities - Culture growing gram negative rods - Suprapubic catheter replaced in ED and draining well - WBC trending downward and most likely was elevated due to retention 2. hypotension - Patient was very diaphoretic yesterday and increased fluids to 100cc which improved his BP 3. Type II DM - Hold home medication - continue on ISS - A1c 7.5 4. Quadriplegia - continue with pain meds, baclofen Subjective 24 Hr Interval Summary Free Text/Dictation Patient resting comfortable and denies any new complaints. Concerned about still being in the hospital since his birthday is tomorrow. No acute overnight events. BP this am was 80s/ but asymptomatic. Exam/Review of Systems Vital Signs Vitals Vital Signs Date Time Temp Pulse Resp B/P Pulse Ox O2 Delivery O2 Flow Rate FiO2 06/30/17 12:00 93 06/30/17 11:52 98.6 18 112/78 96 06/28/17 20:26 Room Air Intake and Output 06/29/17 06/29/17 06/30/17 15:00 23:00 07:00 Intake Total 1100 ml 1410 ml 200 ml Output Total 1100 ml 800 ml Balance 1100 ml 310 ml -600 ml Exam General: Awake in no acute distress, chronically ill. HEENT: Head atraumatic, normocephalic. Sclerae anicteric. dry mucosa NECK: Supple. Trachea midline. CHEST: CTA b/l. Diminished breath sounds at the bases. HEART: regular rate and rhythm. no murmurs. ABDOMEN: Soft, NT, ND bowel sounds present. EXTREMITIES: Wasted, contractured, no cyanosis. Results Result Diagram: 06/30/17 1401 06/30/17 1401 Results 24 hrs Laboratory Tests Test 06/29/17 16:14 06/29/17 17:58 06/29/17 21:00 06/30/17 02:46 Lactic Acid Level 1.5 Bedside Glucose 163 186 160 Test 06/30/17 08:13 06/30/17 12:28 06/30/17 14:01 Bedside Glucose 127 182 White Blood Count 7.8 # Red Blood Count 4.21 #L Hemoglobin 11.7 #L Hematocrit 35.9 #L Mean Corpuscular Volume 85.3 Mean Corpuscular Hemoglobin 27.8 L Mean Corpuscular Hemoglobin Concent 32.6 Red Cell Distribution Width 15.3 H Platelet Count 298 # Mean Platelet Volume 9.4 Neutrophils % 55.6 Lymphocytes % 28.2 Monocytes % 6.4 Eosinophils % 8.7 H Basophils % 0.8 Nucleated Red Blood Cells % 0.0 Neutrophils # (Manual) 4.4 Lymphocytes # 2.2 Monocytes # 0.5 Eosinophils # 0.7 H Basophils # 0.1 Nucleated Red Blood Cells # 0.0 Sodium Level 136 Potassium Level 3.9 Chloride Level 106 Carbon Dioxide Level 25 Anion Gap 9 Blood Urea Nitrogen 17 Creatinine 0.55 L Glucose Level 214 Calcium Level 8.1 L Phosphorus Level 4.2 Magnesium Level 1.9 Albumin 3.0 L Vancomycin Level Trough 13.2 Medications Medications Current Medications Ondansetron HCl (Zofran Inj) 4 mg Q6H PRN IV NAUSEA AND/OR VOMITING; Start 06/28 at 21:30 Acetaminophen (Tylenol Tab) 650 mg Q4H PRN PO MILD PAIN LEVEL 1-4/10; Start 06/28/17 at 21:30 Baclofen (Lioresal) 20 mg TID PO Last administered on 06/30/17 13:16; Admin Dose 20 MG; Start 06/29/17 at 09:00 Insulin Glargine (Lantus) 20 unit QHS SC Last administered on 06/29/17 22:59; Admin Dose 20 UNIT; Start 06/29/17 at 21:00 Magnesium Hydroxide (Milk Of Mag) 30 ml QHS PRN PO CONSTIPATION; Start 06/28/17 at 21:30 Multivitamins/ Minerals (Theragran-M) 1 tab DAILY PO Last administered on 09:28; Admin Dose 1 TAB; Start 06/29/17 at 09:00 Fish Oil (Fish Oil) 500 mg DAILY PO Last administered on 06/30/17 09:34; Admin Dose 500 MG; Start 06/29/17 at 09:00 Diagnostic Test (Pha) 1 ea 1 ea 02 XX Last administered on 06/30/17 02:00; Admin Dose 1 EA; Start 06/29/17 at 02:00 Aztreonam/Sodium Chloride (Azactam/NS) 100 ml @ 100 mls/hr Q12 IVPB Last administered on 06/30/17 09:27; Admin Dose 100 MLS/HR; Start 06/28/17 at 21:30 Acetaminophen (Tylenol Supp) 650 mg Q6H PRN [place] PAIN LEVEL 1-3 OR FEVER; Start 06/28/17 at 21:30 Miscellaneous Information 1 ea NOTE XX ; Start 06/28/17 at 22:00 Glucose (Glutose) 15 gm Q15M PRN PO DECREASED GLUCOSE; Start 06/28/17 at 22:00 Glucose (Glutose) 22.5 gm Q15M PRN PO DECREASED GLUCOSE; Start 06/28/17 at 22:00 Dextrose (D50w Syringe) 25 ml Q15M PRN IV DECREASED GLUCOSE; Start 06/28/17 at 22:00 Dextrose (D50w Syringe) 50 ml Q15M PRN IV DECREASED GLUCOSE; Start 06/28/17 at 22:00 Glucagon (Glucagen) 1 mg Q15M PRN IM DECREASED GLUCOSE; Start 06/28/17 at 22:00 Glucose (Glutose) 15 gm Q15M PRN BUCCAL DECREASED GLUCOSE; Start 06/28/17 at 22: 00 Enoxaparin Sodium (Lovenox) 40 mg DAILY SC Last administered on 06/30/17 09:30 ; Admin Dose 40 MG; Start 06/29/17 at 09:00 Diphenhydramine HCl (Benadryl) 25 mg Q6H PRN PO ITCHING; Start 06/29/17 at 12:30 Hydrocortisone (Hydrocortisone 0.5% Cr) 1 applic BID TOP Last administered on 09:46; Admin Dose 1 APPLIC; Start 06/29/17 at 12:30 Nystatin (Nystatin Powder) 1 applic BID TOP Last administered on 06/30/17 09:46 ; Admin Dose 1 APPLIC; Start 06/29/17 at 14:00 Collagenase 1 applic 1 applic DAILY TOP Last administered on 06/30/17 09:46; Admin Dose 1 APPLIC; Start 06/29/17 at 14:00 Vancomycin HCl 750 mg/Sodium Chloride 150 ml @ 75 mls/hr Q12H IVPB Last administered on 06/30/17 03:34; Admin Dose 75 MLS/HR; Start 06/30/17 at 03:00 Sodium Chloride (NS) 1,000 ml @ 100 mls/hr Q10H IV Last administered on 09:27; Admin Dose 100 MLS/HR; Start 06/30/17 at 09:00 KRISTAN MIRANDA MD Jun 30, 2017 15:30
--- NOTE | 2017-06-30 18:23 | PN ---
DATE: 06/30/2017 SUBJECTIVE DATA: No acute changes. The patient is awake, looks comfortable. He is afebrile. LABORATORY AND DIAGNOSTIC DATA: WBC today is 7.8, with platelets 298, no shift, no bands. BUN 17, creatinine 0.55. MICROBIOLOGY: Urine culture growing gram-negative rods. ALLERGIES: PENICILLIN, KEFLEX, MERREM, BACTRIM. ANTIMICROBIALS: The patient is on vancomycin and a indwelling suprapubic catheter. PHYSICAL EXAMINATION: GENERAL: This is a chronically ill-appearing, elderly man, who is awake, in no distress. HEENT: Head atraumatic, normocephalic. Sclerae anicteric. Buccal mucosa dry. NECK: Supple. CHEST: Rise symmetrical. Breath sounds clear. HEART: S1, S2. ABDOMEN: Soft, bowel sounds present. EXTREMITIES: Without cyanosis. ASSESSMENT: 1. Systemic inflammatory response syndrome with resolved leukocytosis likely secondary to significant urinary retention. 2. Status post dislodged suprapubic catheter placement. 3. Gram-negative connor urinary tract infection. 4. Quadriplegia. 5. Allergies to multiple antibiotics. PLAN: The patient remains stable. Does not appear septic or toxic. WBC traced down. We are going to discontinue vancomycin. Continue him on aztreonam. Await for final urine cultures. Dictated By: Luli Perry NP /domitila/tomas /Document#: [id number]
[2017-06-30] MEDS: INSULIN GLARGINE [LANtus] 3 ML PEN SC SCH (21:31)
[2017-07-01] VITALS (11 sets, daily range): BP systolic 96–165; BP diastolic 52–89; PULSE 67–94; RESP 18–21
[2017-07-01] MEDS: ACCU-CHEK XX SCH (02:00)
[2017-07-01] MEDS: SOD CHLORIDE 0.9% 1,000 ML IV SCH ×2 (05:00→11:51)
[2017-07-01] MEDS: INSULIN ASPART [NOVOLOG] 3 ML PEN SC SCH ×4 (07:55→21:31)
[2017-07-01] MEDS: AZTREONAM 2 GM in SOD CHLORIDE 0.9% 100 ML IVPB SCH (08:38)
[2017-07-01] MEDS: BACLOFEN 10 MG TAB PO SCH ×3 (08:39→21:23)
[2017-07-01] MEDS: NYSTATIN 30 GM POWDER BTL TOP SCH ×2 (08:39→21:35)
[2017-07-01] MEDS: MULTIVITAMINS/MINERALS TAB PO SCH (08:39)
[2017-07-01] MEDS: FISH OIL 1,000 MG CAP PO SCH (08:39)
[2017-07-01] MEDS: HYDROCORTISONE 0.5% 28.35 GM CR TOP SCH ×2 (08:39→21:35)
[2017-07-01] MEDS: COLLAGENASE 30 GM TUBE TOP SCH (08:39)
[2017-07-01] MEDS: ENOXAPARIN 40 MG/0.4 ML SYG SC SCH (08:44)
--- NOTE | 2017-07-01 11:16 | PN ---
Date/Time of Note Date/Time of Note DATE: 07/01/17 TIME: 11:14 Assessment/Plan VTE Prophylaxis VTE Prophylaxis Intervention: LMWH Lines/Catheters IV Catheter Type (from Nrs): Peripheral IV Urinary Cath still in place: No Assessment/Plan Assessment/Plan 1. Urinary tract infection - Patient has a history of multidrug resistant UTI with multiple allergies as well - Appreciated ID input.. May be discharged on Invanz 1 GM IV Daily x 10 days - Will need PICC line placement tmrw - Culture growing ESBL - Suprapubic catheter replaced in ED and draining well - WBC trending downward and most likely was elevated due to retention 2. Type II DM - Hold home medication - continue on ISS - A1c 7.5 3. Quadriplegia - continue with pain meds, baclofen Subjective 24 Hr Interval Summary Free Text/Dictation Patient doing well and has no new complaints. No acute overnight events. Denies fevers, chills, nausea, vomiting, chest pain, shortness of breath, or abdominal issues. Exam/Review of Systems Vital Signs Vitals Vital Signs Date Time Temp Pulse Resp B/P Pulse Ox O2 Delivery O2 Flow Rate FiO2 07/01/17 08:01 78 07/01/17 07:38 98.7 20 131/52 96 06/28/17 20:26 Room Air Intake and Output 06/30/17 06/30/17 07/01/17 15:00 23:00 07:00 Intake Total 100 ml 1850 ml Output Total 1000 ml Balance 100 ml 850 ml Exam General: Awake in no acute distress, chronically ill. HEENT: Head atraumatic, normocephalic. Sclerae anicteric. dry mucosa NECK: Supple. Trachea midline. CHEST: CTA b/l. Diminished breath sounds at the bases. HEART: regular rate and rhythm. no murmurs. ABDOMEN: Soft, NT, ND bowel sounds present. EXTREMITIES: Wasted, contractured, no cyanosis. Results Result Diagram: 06/30/17 1401 06/30/17 1401 Results 24 hrs Laboratory Tests Test 06/30/17 12:28 06/30/17 14:01 06/30/17 17:37 06/30/17 21:23 Bedside Glucose 182 179 224 H White Blood Count 7.8 # Red Blood Count 4.21 #L Hemoglobin 11.7 #L Hematocrit 35.9 #L Mean Corpuscular Volume 85.3 Mean Corpuscular Hemoglobin 27.8 L Mean Corpuscular Hemoglobin Concent 32.6 Red Cell Distribution Width 15.3 H Platelet Count 298 # Mean Platelet Volume 9.4 Neutrophils % 55.6 Lymphocytes % 28.2 Monocytes % 6.4 Eosinophils % 8.7 H Basophils % 0.8 Nucleated Red Blood Cells % 0.0 Neutrophils # (Manual) 4.4 Lymphocytes # 2.2 Monocytes # 0.5 Eosinophils # 0.7 H Basophils # 0.1 Nucleated Red Blood Cells # 0.0 Sodium Level 136 Potassium Level 3.9 Chloride Level 106 Carbon Dioxide Level 25 Anion Gap 9 Blood Urea Nitrogen 17 Creatinine 0.55 L Glucose Level 214 Calcium Level 8.1 L Phosphorus Level 4.2 Magnesium Level 1.9 Albumin 3.0 L Vancomycin Level Trough 13.2 Test 07/01/17 02:10 07/01/17 08:32 Bedside Glucose 149 130 Medications Medications Current Medications Ondansetron HCl (Zofran Inj) 4 mg Q6H PRN IV NAUSEA AND/OR VOMITING; Start 06/28 at 21:30 Acetaminophen (Tylenol Tab) 650 mg Q4H PRN PO MILD PAIN LEVEL 1-410; Start 06/28/17 at 21:30 Baclofen (Lioresal) 20 mg TID PO Last administered on 07/01/17 08:39; Admin Dose 20 MG; Start 06/29/17 at 09:00 Insulin Glargine (Lantus) 20 unit QHS SC Last administered on 06/30/17 21:31; Admin Dose 20 UNIT; Start 06/29/17 at 21:00 Magnesium Hydroxide (Milk Of Mag) 30 ml QHS PRN PO CONSTIPATION; Start 06/28/17 at 21:30 Multivitamins/ Minerals (Theragran-M) 1 tab DAILY PO Last administered on 08:39; Admin Dose 1 TAB; Start 06/29/17 at 09:00 Fish Oil (Fish Oil) 500 mg DAILY PO Last administered on 07/01/17 08:39; Admin Dose 500 MG; Start 06/29/17 at 09:00 Diagnostic Test (Pha) 1 ea 1 ea 02 XX Last administered on 07/01/17 02:00; Admin Dose 1 EA; Start 06/29/17 at 02:00 Aztreonam/Sodium Chloride (Azactam/NS) 100 ml @ 100 mls/hr Q12 IVPB Last administered on 07/01/17 08:38; Admin Dose 100 MLS/HR; Start 06/28/17 at 21:30 Acetaminophen (Tylenol Supp) 650 mg Q6H PRN [place] PAIN LEVEL 1-3 OR FEVER; Start 06/28/17 at 21:30 Miscellaneous Information 1 ea NOTE XX ; Start 06/28/17 at 22:00 Glucose (Glutose) 15 gm Q15M PRN PO DECREASED GLUCOSE; Start 06/28/17 at 22:00 Glucose (Glutose) 22.5 gm Q15M PRN PO DECREASED GLUCOSE; Start 06/28/17 at 22:00 Dextrose (D50w Syringe) 25 ml Q15M PRN IV DECREASED GLUCOSE; Start 06/28/17 at 22:00 Dextrose (D50w Syringe) 50 ml Q15M PRN IV DECREASED GLUCOSE; Start 06/28/17 at 22:00 Glucagon (Glucagen) 1 mg Q15M PRN IM DECREASED GLUCOSE; Start 06/28/17 at 22:00 Glucose (Glutose) 15 gm Q15M PRN BUCCAL DECREASED GLUCOSE; Start 06/28/17 at 22: 00 Enoxaparin Sodium (Lovenox) 40 mg DAILY SC Last administered on 07/01/17 08:44 ; Admin Dose 40 MG; Start 06/29/17 at 09:00 Diphenhydramine HCl (Benadryl) 25 mg Q6H PRN PO ITCHING; Start 06/29/17 at 12:30 Hydrocortisone (Hydrocortisone 0.5% Cr) 1 applic BID TOP Last administered on 08:39; Admin Dose 1 APPLIC; Start 06/29/17 at 12:30 Nystatin (Nystatin Powder) 1 applic BID TOP Last administered on 07/01/17 08: 39; Admin Dose 1 APPLIC; Start 06/29/17 at 14:00 Collagenase 1 applic 1 applic DAILY TOP Last administered on 07/01/17 08:39; Admin Dose 1 APPLIC; Start 06/29/17 at 14:00 Sodium Chloride (NS) 1,000 ml @ 100 mls/hr Q10H IV Last administered on 05:00; Admin Dose 100 MLS/HR; Start 06/30/17 at 09:00 KRISTAN MIRANDA MD Jul 01, 2017 11:16
[2017-07-01 11:32] LABS: BASOPHIL # 0.1 10^3/ul (0.0-0.1); BASOPHILS % 0.7 % (0.0-2.0); EOSINOPHILS # 0.6 10^3/ul (0.0-0.5); EOSINOPHILS % 7.4 % (0.0-7.0); HEMATOCRIT 37.1 % (42.0-52.0); HEMOGLOBIN 12.1 g/dl (14.0-18.0); LYMPHOCYTES # 2.4 10^3/ul (0.8-2.9); MEAN CORPUSCULAR HEMOGLOBIN 27.7 pg (29.0-33.0); MEAN CORPUSCULAR HGB CONC 32.6 g/dl (32.0-37.0); MEAN CORPUSCULAR VOLUME 84.9 fl (82.0-101.0); MEAN PLATELET VOLUME 9.4 fl (7.4-10.4); MONOCYTE # 0.6 10^3/ul (0.3-0.9); MONOCYTES % 6.9 % (0.0-11.0); NEUTROPHILS % 54.1 % (39.0-77.0); PLATELET COUNT 326 10^3/UL (140-415); RED BLOOD COUNT 4.37 10^6/ul (4.70-6.10); RED CELL DISTRIBUTION WIDTH 15.3 % (11.5-14.5); WHITE BLOOD COUNT 8.1 10^3/ul (4.8-10.8)
[2017-07-01 12:21] LABS: CREATININE 0.51 mg/dl (0.61-1.24)
[2017-07-01 12:23] LABS: ALBUMIN 3.4 g/dl (3.3-4.9); CALCIUM 8.3 mg/dl (8.4-10.2); CREATININE 0.54 mg/dl (0.61-1.24); MAGNESIUM 1.9 mg/dl (1.7-2.5); PHOSPHORUS 3.7 mg/dl (2.5-4.9); POTASSIUM 3.9 mmol/L (3.5-5.1)
[2017-07-01] MEDS: ERTAPENEM SODIUM 1 GM in SOD CHLORIDE 0.9% 100 ML IVPB SCH (15:02)
--- NOTE | 2017-07-01 15:16 | CONS ---
Date/Time of Note Date/Time of Note DATE: 07/01/17 TIME: 15:06 Assessment/Plan Assessment/Plan Chief Complaint/Hosp Course SUBJECTIVE DATA: No acute changes. Denies pain. No Acute Distress. MICROBIOLOGY: Urine culture growing gram-negative rods. ALLERGIES: PENICILLIN, KEFLEX, MERREM, BACTRIM. ANTIMICROBIALS: The patient is on vancomycin and indwelling suprapubic catheter. PHYSICAL EXAMINATION: GENERAL: This is a chronically ill-appearing, elderly man, who is awake, in no distress. HEENT: Head atraumatic, normocephalic. Sclerae anicteric. Buccal mucosa dry. NECK: Supple. CHEST: Rise symmetrical. Breath sounds clear. HEART: S1, S2. ABDOMEN: Soft, bowel sounds present. EXTREMITIES: Without cyanosis. ASSESSMENT: 1. Systemic inflammatory response syndrome with resolved leukocytosis likely secondary to significant urinary retention. 2. Status post dislodged suprapubic catheter placement. 3. Gram-negative connor urinary tract infection. 4. Quadriplegia. 5. Allergies to multiple antibiotics. PLAN: Discussed with Infectious Disease Team. May be discharged on Invanz 1 GM IV Daily x 10 days OR Gentamicin IV Dose per Pharmacy x 10 days. Problems: Consultation Date/Type/Reason Admit Date/Time Jun 28, 2017 at 20:03 Initial Consult Date Type of Consultation: id Exam/Review of Systems Vital Signs Vitals Vital Signs Date Time Temp Pulse Resp B/P Pulse Ox O2 Delivery O2 Flow Rate FiO2 07/01/17 11:25 98.2 88 20 142/89 96 06/28/17 20:26 Room Air Intake and Output 06/30/17 06/30/17 07/01/17 15:00 23:00 07:00 Intake Total 100 ml 1850 ml Output Total 1000 ml Balance 100 ml 850 ml Results Result Diagram: 07/01/17 1050 07/01/17 1050 Results 24 hrs Laboratory Tests Test 06/30/17 17:37 06/30/17 21:23 07/01/17 02:10 07/01/17 08:32 Bedside Glucose 179 224 H 149 130 Test 07/01/17 10:50 07/01/17 11:56 White Blood Count 8.1 Red Blood Count 4.37 L Hemoglobin 12.1 L Hematocrit 37.1 L Mean Corpuscular Volume 84.9 Mean Corpuscular Hemoglobin 27.7 L Mean Corpuscular Hemoglobin Concent 32.6 Red Cell Distribution Width 15.3 H Platelet Count 326 Mean Platelet Volume 9.4 Neutrophils % 54.1 Lymphocytes % 30.0 Monocytes % 6.9 Eosinophils % 7.4 H Basophils % 0.7 Nucleated Red Blood Cells % 0.0 Neutrophils # (Manual) 4.4 Lymphocytes # 2.4 Monocytes # 0.6 Eosinophils # 0.6 H Basophils # 0.1 Nucleated Red Blood Cells # 0.0 Sodium Level 143 Potassium Level 3.9 Chloride Level 111 H Carbon Dioxide Level 25 Anion Gap 11 Blood Urea Nitrogen 15 Creatinine 0.54 L Glucose Level 217 Calcium Level 8.3 L Phosphorus Level 3.7 Magnesium Level 1.9 Albumin 3.4 Bedside Glucose 186 Medications Medications Current Medications Ondansetron HCl (Zofran Inj) 4 mg Q6H PRN IV NAUSEA AND/OR VOMITING; Start 06/28 at 21:30 Acetaminophen (Tylenol Tab) 650 mg Q4H PRN PO MILD PAIN LEVEL 1-4/10; Start 06/28/17 at 21:30 Baclofen (Lioresal) 20 mg TID PO Last administered on 07/01/17 13:34; Admin Dose 20 MG; Start 06/29/17 at 09:00 Insulin Glargine (Lantus) 20 unit QHS SC Last administered on 06/30/17 21:31; Admin Dose 20 UNIT; Start 06/29/17 at 21:00 Magnesium Hydroxide (Milk Of Mag) 30 ml QHS PRN PO CONSTIPATION; Start 06/28/17 at 21:30 Multivitamins/ Minerals (Theragran-M) 1 tab DAILY PO Last administered on 08:39; Admin Dose 1 TAB; Start 06/29/17 at 09:00 Fish Oil (Fish Oil) 500 mg DAILY PO Last administered on 07/01/17 08:39; Admin Dose 500 MG; Start 06/29/17 at 09:00 Diagnostic Test (Pha) (Accu-Chek) 1 ea 02 XX Last administered on 07/01/17 02: 00; Admin Dose 1 EA; Start 06/29/17 at 02:00 Acetaminophen (Tylenol Supp) 650 mg Q6H PRN [place] PAIN LEVEL 1-3 OR FEVER; Start 06/28/17 at 21:30 Miscellaneous Information 1 ea NOTE XX ; Start 06/28/17 at 22:00 Glucose (Glutose) 15 gm Q15M PRN PO DECREASED GLUCOSE; Start 06/28/17 at 22:00 Glucose (Glutose) 22.5 gm Q15M PRN PO DECREASED GLUCOSE; Start 06/28/17 at 22:00 Dextrose (D50w Syringe) 25 ml Q15M PRN IV DECREASED GLUCOSE; Start 06/28/17 at 22:00 Dextrose (D50w Syringe) 50 ml Q15M PRN IV DECREASED GLUCOSE; Start 06/28/17 at 22:00 Glucagon (Glucagen) 1 mg Q15M PRN IM DECREASED GLUCOSE; Start 06/28/17 at 22:00 Glucose (Glutose) 15 gm Q15M PRN BUCCAL DECREASED GLUCOSE; Start 06/28/17 at 22: 00 Enoxaparin Sodium (Lovenox) 40 mg DAILY SC Last administered on 07/01/17 08:44 ; Admin Dose 40 MG; Start 06/29/17 at 09:00 Diphenhydramine HCl (Benadryl) 25 mg Q6H PRN PO ITCHING; Start 06/29/17 at 12:30 Hydrocortisone (Hydrocortisone 0.5% Cr) 1 applic BID TOP Last administered on 08:39; Admin Dose 1 APPLIC; Start 06/29/17 at 12:30 Nystatin (Nystatin Powder) 1 applic BID TOP Last administered on 07/01/17 08: 39; Admin Dose 1 APPLIC; Start 06/29/17 at 14:00 Collagenase 1 applic 1 applic DAILY TOP Last administered on 07/01/17 08:39; Admin Dose 1 APPLIC; Start 06/29/17 at 14:00 Sodium Chloride 1,000 ml @ 100 mls/hr Q10H IV Last administered on 07/01/17 11:51; Admin Dose 100 MLS/HR; Start 06/30/17 at 09:00 Ertapenem/Sodium Chloride (Invanz/NS) 100 ml @ 200 mls/hr Q24H IVPB Last administered on 07/01/17 15:02; Admin Dose 200 MLS/HR; Start 07/01/17 at 14:30 PORTER COOL NP Jul 01, 2017 15:16
[2017-07-01] MEDS ORDERED: LIDOCAINE 1% (MPF) 5 ML VIAL SC ONE (18:30)
[2017-07-01] MEDS: INSULIN GLARGINE [LANtus] 3 ML PEN SC SCH (21:27)
[2017-07-02] VITALS (11 sets, daily range): BP systolic 117–134; BP diastolic 69–80; PULSE 80–100; RESP 18–19
[2017-07-02] MEDS: SOD CHLORIDE 0.9% 1,000 ML IV SCH ×2 (01:00→12:16)
[2017-07-02] MEDS: ACCU-CHEK XX SCH (02:00)
[2017-07-02] MEDS: INSULIN ASPART [NOVOLOG] 3 ML PEN SC SCH ×3 (08:29→17:16)
[2017-07-02] MEDS: FISH OIL 1,000 MG CAP PO SCH (08:37)
[2017-07-02] MEDS: ENOXAPARIN 40 MG/0.4 ML SYG SC SCH (08:37)
[2017-07-02] MEDS: BACLOFEN 10 MG TAB PO SCH ×2 (08:37→13:36)
[2017-07-02] MEDS: MULTIVITAMINS/MINERALS TAB PO SCH (08:37)
[2017-07-02] MEDS: NYSTATIN 30 GM POWDER BTL TOP SCH (08:38)
[2017-07-02] MEDS: COLLAGENASE 30 GM TUBE TOP SCH (08:38)
[2017-07-02] MEDS: HYDROCORTISONE 0.5% 28.35 GM CR TOP SCH (12:16)
[2017-07-02] MEDS: ERTAPENEM SODIUM 1 GM in SOD CHLORIDE 0.9% 100 ML IVPB SCH (13:40)
--- NOTE | 2017-07-02 14:30 | PDOCDIS ---
Discharge Instructions CONDITION Patient Condition: Stable HOME CARE INSTRUCTIONS: Special Diet: Carb controlled diet FOLLOW UP/APPOINTMENTS Follow-up Plan 1.Follow up with primary care physician If you don't have one please let someone know, we can give you resources that may help you pick one. You may also call your insurance company to assign one to you. Review your medication list with your nurse before leaving and if you need new prescriptions please let your nurse know. I may have made changes to your home medications or given you new prescriptions, please let your primary doctor know as well. Stay compliant with your medications and report any side effects to your PCP or pharmacist. Return to the ER if you have any concerns and cannot reach your doctors or call your insurance company, they usually have a nurse that can help you. 2. Call 911 or go to the nearest emergency room if experiencing loss of consciousness, dizziness, chest pain, shortness of breath, vomiting/abdominal pain, speech difficulties, motor weakness or any unusual symptoms. MARISELA HENRIQUEZ NP Jul 02, 2017 14:30
[2017-07-02] MEDS ORDERED: ERTA1VIA IV (14:40)
--- NOTE | 2017-07-02 16:02 | RADRPT ---
PROCEDURE: Ultrasound guidance for placement of needle in left upper extremity vein. CLINICAL INDICATION: Venous access. TECHNIQUE: Limited sonography of the left upper extremity was performed. Ultrasound images were recorded and s tored in the patient's medical record. COMPARISON: None. FINDINGS: The ultrasound images demonstrate a patent left upper extremity vein. The PICC line was inserted by the PICC line nurse. IMPRESSION: 1. Ultrasound guidance for a needle placement in a left upper extremity vein. 2. The left upper extremity vein is patent. RPTAT: QQ .Sriram Tam MD, MD Date Time Electronically viewed and signed by .Sriram Tam MD, MD on 07/02/2017 16:02 .R/
--- NOTE | 2017-07-02 16:02 | RADRPT ---
PROCEDURE: XR Chest. CLINICAL INDICATION: Check PICC line position. TECHNIQUE: Single frontal view. COMPARISON: 12/09/2016 FINDINGS: There is a left arm PICC line with the tip in the mid superior vena cava. The lungs are clear. The heart size is normal. There is calcification in the aorta consistent with atherosclerosis. There is no pleural effusion. There is no pneumothorax. IMPRESSION: 1. Left arm PICC line tip in satisfactory position. 2. Atherosclerosis. 3. Otherwise normal chest radiograph. RPTAT: QQ .Sriram Tam MD, MD Date Time Electronically viewed and signed by .Sriram Tam MD, MD on 07/02/2017 16:01 .R/
--- NOTE | 2017-07-02 16:24 | DS ---
Date/Time of Note Date/Time of Note DATE: 07/02/17 TIME: 16:20 Discharge Summary Admission/Discharge Info Admit Date/Time Jun 28, 2017 at 20:03 Discharge Date/Time Discharge Diagnosis 1. Urinary tract infection. On treatment with IV Invanz 10 days 2. Type II DM 3. Spinal cord injury and quadriplegia, Consults ,ID Procedures 06/28/2017. Replacement of suprapubic catheter with 12 [place] suprapubic tube 07/02/2070. Ultrasound guided PICC line insertion. Hx of Present Illness Hospital Course Patient is a 62-year-old male with hx of MDRO UTIs, chronic suprapubic tube due to spinal cord injury and quadriplegia, depression, diabetes, and CKD who presented to the ER with dislodged suprapubic tube and with associated suprapubic pain.ER physician was able to replace a 12 [place] suprapubic tube.Patient felt rapid improvement in symptoms thereafter. However, Patient also had elevated lactic acid 4.6, WBC 21.6 blood sugar 362. Patient remained hypotensive and was treated with IV fluids with subsequent normalization blood pressure. Patient was then admitted. ID consult was called. Patient was continued on appropriate IV broad-spectrum antibiotics. Pancultures were sent. He was continued on Accu-Cheks, and insulin sliding scale. Patient was continued on home medication for underlying comorbid conditions. Urine culture showed ESBL. Blood cultures remained negative. As per ID recommendation, patient is 10 more days on Invanz for underlying urinary tract infection. Patient had undergone PICC line placement. Patient continued to have hyperglycemia. However, he did not want to get any adjustment in his current regimen and [facility] and will follow up with his primary care doctor regarding insulin adjustment although he would have benefited from staying overnight and to see blood glucose pattern with adjusted dose of insulin, however he refused it. Patient: Patient will be discharged back to care home facility. care home was instructed on continuation of Invanz 1 g IV daily for 10 days. care home was also instructed on removing PICC line after antibiotic course. Approximately 60 minutes was spent in coordinating the discharge on this patient. Patient is seen in collaboration with Dr. Guzman. Home Meds Active Scripts Ertapenem Sodium (Invanz) 1 Gm Vial.port, 1 GM IV DAILY for 10 Days Prov:MARISELA HENRIQUEZ NP 07/02/17 Reported Medications Insulin Glargine* (Lantus*) 100 Unit/Ml Soln, 20 UNIT SC QHS, #1 VIAL 06/28/17 Sitagliptin* (Januvia*) 100 Mg Tablet, 100 MG PO DAILY, #30 TAB 06/28/17 Glimepiride* (Glimepiride*) 4 Mg Tablet, 4 MG PO WITH BREAKFAST DINNE, TAB 06/28/17 Famotidine* (Pepcid*) 20 Mg Tablet, 20 MG PO BID, #60 TAB 06/28/17 Cranberry Extract (Cranberry Concentrate) Unknown Strength Capsule, 1680 MG PO DAILY, CAP 11/28/16 Magnesium Hydroxide* (Milk Of Magnesia*) 400 Mg/5 Ml Oral.susp, 30 ML PO QHS Y for CONSTIPATION, ML 11/28/16 Acetaminophen* (Tylenol*) 325 Mg Tablet, 650 MG PO Q4H Y for MILD PAIN LEVEL 1-4 /10, TAB 11/28/16 Hydrocodone/Acetaminophen ([place] 5-325 Tablet) 1 Each Tablet, 1 EACH PO Q4H WHILE AWAKE, TAB PAIN SCALE 5-7/10 AND QD 30 MIN PRIOR TO WOUND TX 11/28/16 Sod Phosphate/Sod Biphosphate* (Fleet* Enema Pediatric) 66.6 Ml Soln, 66.6 ML OR Q2DAYS Y for CONSTIPATION, ENEMA 11/28/16 Bisacodyl* (Bisacodyl*) 10 Mg Supp, 10 MG OR DAILY, SUPP 11/28/16 Baclofen* (Baclofen*) 20 Mg Tablet, 20 MG PO TID, TAB 11/28/16 Amlodipine Besylate* (Amlodipine Besylate*) 10 Mg Tablet, 10 MG PO DAILY, #30 TAB HOLD IF SBP<110 OR<60 11/28/16 Multivitamin with Minerals (Multivitamins with Minerals) 1 Each Tablet, 1 EACH PO DAILY, TAB 11/28/16 Metformin Hcl* (Metformin Hcl*) 1,000 Mg Tablet, 1000 MG PO WITH BREAKFAST DINNE , #60 TAB 11/28/16 Ferrous Sulfate* (Ferrous Sulfate*) 325 Mg Tabec, 325 MG PO BID, TAB 11/28/16 Ascorbic Acid* (Vitamin C*) 500 Mg Capsule.sa, 500 MG PO DAILY, CAP 11/28/16 Grover-3 Fatty Acids (Fish Oil) 500 Mg Capsule, 500 MG PO DAILY, CAP 11/28/16 Discontinued Reported Medications Glimepiride* (Glimepiride*) 2 Mg Tablet, 2 MG PO WITH BREAKFAST DINNE, TAB 11/28/16 Insulin Lispro (Humalog) 100 Unit/1 Ml Cartridge, 0 SQ SLIDING SCALE 60-110=0 UNITS, 111-150=4 UNITS, 151-200=8 UNITS, 201-250=10 UNITS, 251-300=12 UNITS,301-350=14 UNITS,>350=16 UNITS IF BS<60 OR >350 CALL MD 11/28/16 Zinc Sulfate* (Zinc Sulfate*) 220 Mg Tablet, 220 MG PO DAILY, TAB 11/28/16 Follow-up Plan HOME CARE INSTRUCTIONS: Special Diet: Carb controlled diet FOLLOW UP/APPOINTMENTS Follow-up Plan 1.Follow up with primary care physician If you don't have one please let someone know, we can give you resources that may help you pick one. You may also call your insurance company to assign one to you. Review your medication list with your nurse before leaving and if you need new prescriptions please let your nurse know. I may have made changes to your home medications or given you new prescriptions, please let your primary doctor know as well. Stay compliant with your medications and report any side effects to your PCP or pharmacist. Return to the ER if you have any concerns and cannot reach your doctors or call your insurance company, they usually have a nurse that can help you. 2. Call 911 or go to the nearest emergency room if experiencing loss of consciousness, dizziness, chest pain, shortness of breath, vomiting/abdominal pain, speech difficulties, motor weakness or any unusual symptoms. Primary Care Provider Not On Staff Doctor Pending Labs Laboratory Tests Test 07/01/17 17:55 07/01/17 21:22 07/02/17 02:30 07/02/17 08:20 Bedside Glucose 326mg/dL (70-220) 285mg/dL (70-220) 239mg/dL (70-220) 186mg/dL (70-220) Test 07/02/17 12:14 Bedside Glucose 222mg/dL (70-220) MARISELA HENRIQUEZ NP Jul 02, 2017 16:24
[2017-07-02] MEDS ORDERED: SOD CHLORIDE 0.9% 100 ML ONE (17:34)
[2017-07-02] MEDS ORDERED: INSULIN ASPART [NOVOLOG] 3 ML PEN SC SCH (17:55)
--- NOTE | 2017-07-02 21:15 | PN ---
DATE: 07/02/2017 SUBJECTIVE DATA: No acute changes. Patient is sleeping, looks comfortable. LABORATORY AND DIAGNOSTIC DATA: No labs this morning. MICROBIOLOGY: Urine culture on admission grew E coli, ESBL. ANTIMICROBIALS: Invanz. OBJECTIVE DATA: GENERAL: Chronically ill-appearing, elderly man, in no distress. HEENT: Head atraumatic, normocephalic. Sclerae anicteric. Buccal mucosa dry. NECK: Obese. CHEST: Rise symmetrical. Breath sounds clear. Diminished at bases. HEART: S1, S2. ABDOMEN: Soft, bowel sounds present. ASSESSMENT: 1. Systemic inflammatory response syndrome, with leukocytosis on admission. 2. Escherichia coli extended-spectrum beta-lactamase urinary tract infection. 3. Neurogenic bladder, status post suprapubic catheter, replaced on admission. 4. Quadriplegia. 5. ALLERGIES TO MULTIPLE ANTIBIOTICS. PLAN: Patient remains stable. Continue on Invanz for a total of 10 days, pending discharge planning. Dictated By: Luli Perry NP /domitila/zeinab /Document#: [id number]
== END 2017-07-02 18:41 | disposition home or self-care (01) | DRG 698 ==
LOC: E/R 15:06 → TEL 20:03
PROVIDERS: ADMIT Family Medicine; ATTEND Family Medicine
PROC: 0T2BX0Z Change Drainage Device in Bladder, External Approach (ICD-10-PCS; principal; 2017-06-28)
PROC: 02HV33Z Insertion of Infusion Device into Superior Vena Cava, Percutaneous Approach (ICD-10-PCS; 2017-07-02)
PROC: B54NZZA Ultrasonography of Left Upper Extremity Veins, Guidance (ICD-10-PCS; 2017-07-02)
DX: T83.020A Displacement of cystostomy catheter, initial encounter (principal); L89.324 Pressure ulcer of left buttock, stage 4; G82.50 Quadriplegia, unspecified; E11.22 Type 2 diabetes mellitus with diabetic chronic kidney disease; R65.10 Systemic inflammatory response syndrome (SIRS) of non-infectious origin without acute organ dysfunction; E87.2 Acidosis; I95.9 Hypotension, unspecified; N39.0 Urinary tract infection, site not specified; E86.0 Dehydration; B96.20 Unspecified Escherichia coli [E. coli] as the cause of diseases classified elsewhere; N18.9 Chronic kidney disease, unspecified; I12.9 Hypertensive chronic kidney disease with stage 1 through stage 4 chronic kidney disease, or unspecified chronic kidney disease; N31.9 Neuromuscular dysfunction of bladder, unspecified; Z16.12 Extended spectrum beta lactamase (ESBL) resistance; Z79.4 Long term (current) use of insulin; Z88.0 Allergy status to penicillin
CPT/HCPCS: 36569; 71010; 76937; 80048; 80053; 80069; 80202; 81001; 82565; 82962; 83036; 83605; 83735; 84443; 84520; 85025; 87040; 87081; 87086; J1335; J1650; J1815; J3370; J7030; J7050

== ENCOUNTER 2017-12-31 03:15 | Inpatient (IN) | END 2018-01-06 18:15 | DRG 871 ==